=== PATIENT | female | born 1935 | race Two or more races ===

== ENCOUNTER 2020-12-04 10:22 | Outpatient (REF) | payer MEDICARE, MEDICAID, SELFPAY ==
[2020-12-04 11:42] LABS: MANUAL DIFF FLAG NO
[2020-12-04 11:51] LABS: Basophils Percent Auto 0.5 % (0-2); Eosinophils Absolute Auto 0.2 X10*3/uL (0.0-0.4); Eosinophils Percent Auto 2.7 % (0-4); Hematocrit 37.6 % (37-47); Hemoglobin 11.7 g/dl (12.0-16.0); Imm Gran Abs Auto 0.01 X10*3/uL (0.00-0.03); Imm Gran Pct Auto 0.2 % (0.0-0.4); Lymphocytes Absolute Auto 1.9 X10*3/uL (1.2-4.9); Lymphocytes Percent Auto 28.9 % (20-40); Mean Corpuscular HGB Conc 31.1 g/dl (31.0-35.0); Mean Corpuscular Volume 96.4 fL (80-98); Mean Platelet Volume 12.2 fL (9.4-12.3); Monocytes Absolute Auto 0.3 X10*3/uL (0.1-1.2); Neutrophils Absolute Auto 4.1 X10*3/uL (2.0-8.3); Neutrophils Percent Auto 62.7 % (45-73); Platelet Count 240 X10*3/uL (160-400); White Blood Count 6.6 X10*3/uL (4.8-10.8)
[2020-12-04 12:15] LABS: Alanine Aminotransferase 12 U/L (0-31); Albumin Level 3.7 g/dL (3.5-5.0); Alkaline Phosphatase 84 U/L (39-117); Anion Gap 15 (12-20); Aspartate Amino Transferase 12 U/L (5-31); Bilirubin Total 0.3 mg/dL (0.0-1.0); Blood Urea Nitrogen 22 mg/dL (9-16); Carbon Dioxide 20 mmol/L (22-29); Chloride 105 mmol/L (96-108); Estimated Glomerular Filt Rate 21; Iron 51 mcg/dL (30-160); Lactate Dehydrogenase 170 U/L (122-220); Percent Iron Saturation 23 % (15-50); Potassium 5.3 mmol/L (3.3-5.1); Sodium 135 mmol/L (135-145); Total Iron Binding Capacity 223 mcg/dL (228-428); Total Protein 7.2 g/dL (6.5-8.0); Unsaturated Iron Binding 172 ug/dL
[2020-12-04 12:56] LABS: Folate 11.2 ng/mL (> or = 4.0); Vitamin B12 621 pg/mL (200-900)
[2020-12-04 13:14] LABS: Glucose Fasting 405 mg/dL (60-99)
[2020-12-05 09:11] LABS: Erythropoietin (EPO) 8.4 mIU/mL (2.6-18.5)
[2020-12-05 12:22] LABS: Calcium (PTHI) 9.1 mg/dL (8.6-10.4); PTHI 190 pg/mL (14-64)
[2020-12-08 15:12] LABS: Vitamin D 25-OH, D2 <4 ng/mL; Vitamin D 25-OH, D3 18 ng/mL; Vitamin D 25-OH, Total 18 ng/mL (30-100)
== END 2020-12-04 10:23 | disposition home or self-care (01) ==
LOC: HO.LAB 10:22
PROVIDERS: Absent Provider Internal Medicine; PCP Internal Medicine; Visit Provider Internal Medicine Hypertension Specialist
DX: E11.22 Type 2 diabetes mellitus with diabetic chronic kidney disease (principal); N18.4 Chronic kidney disease, stage 4 (severe); D63.1 Anemia in chronic kidney disease; E11.65 Type 2 diabetes mellitus with hyperglycemia; E55.9 Vitamin D deficiency, unspecified; Z79.4 Long term (current) use of insulin
CPT/HCPCS: 36415; 80053; 82306; 82607; 82668; 82746; 83540; 83615; 83970; 85025

== ENCOUNTER 2021-01-31 16:01 | Outpatient (REF) | payer MEDICARE, MEDICAID, SELFPAY ==
[2021-01-31 17:26] LABS: Hemoglobin 11.2 g/dl (12.0-16.0); Mean Corpuscular Hemoglobin 30.7 pg (27.0-33.0); Mean Corpuscular Volume 95.9 fL (80-98); Mean Platelet Volume 12.5 fL (9.4-12.3); Platelet Count 278 X10*3/uL (160-400); Red Blood Count 3.65 X10*6/uL (4.20-5.50); Red Cell Distribution Width 12.8 % (11.0-16.0); White Blood Count 8.5 X10*3/uL (4.8-10.8)
[2021-01-31 17:27] LABS: MANUAL DIFF FLAG NO
[2021-01-31 17:31] LABS: Basophils Percent Auto 0.4 % (0-2); Eosinophils Absolute Auto 0.3 X10*3/uL (0.0-0.4); Eosinophils Percent Auto 3.4 % (0-4); Hematocrit 34.7 % (37-47); Hemoglobin 11.1 g/dl (12.0-16.0); Imm Gran Abs Auto 0.01 X10*3/uL (0.00-0.03); Imm Gran Pct Auto 0.1 % (0.0-0.4); Immature Retic Fraction 15.1 % (3.0-15.9); Lymphocytes Percent Auto 35.5 % (20-40); Mean Corpuscular Hemoglobin 30.7 pg (27.0-33.0); Mean Corpuscular Volume 95.9 fL (80-98); Mean Platelet Volume 12.4 fL (9.4-12.3); Monocytes Absolute Auto 0.4 X10*3/uL (0.1-1.2); Monocytes Percent Auto 4.6 % (2-11); Neutrophils Absolute Auto 4.7 X10*3/uL (2.0-8.3); Platelet Count 279 X10*3/uL (160-400); Red Blood Count 3.62 X10*6/uL (4.20-5.50); Red Cell Distribution Width 12.9 % (11.0-16.0); Retic HGB Equivalent 34.7 pg (30.0-35.0); Reticulocyte Percent 1.4 % (0.5-1.8); Reticulocytes Absolute 0.051 X10*6/uL (0.026-0.095); White Blood Count 8.3 X10*3/uL (4.8-10.8)
[2021-01-31 17:42] LABS: Microalbum/Creatinine Ratio Ur 4.6 ug/mg cr
[2021-01-31 18:20] LABS: Anion Gap 13 (12-20); Carbon Dioxide 24 mmol/L (22-29); Chloride 102 mmol/L (96-108); Potassium 5.5 mmol/L (3.3-5.1); Sodium 133 mmol/L (135-145)
[2021-01-31 18:44] LABS: Alanine Aminotransferase 11 U/L (0-31); Albumin Level 3.7 g/dL (3.5-5.0); Alkaline Phosphatase 86 U/L (39-117); Aspartate Amino Transferase 12 U/L (5-31); Bilirubin Total 0.2 mg/dL (0.0-1.0); Blood Urea Nitrogen 21 mg/dL (9-16); Calcium 9.4 mg/dL (8.4-10.2); Estimated Glomerular Filt Rate 20; Glucose Random 470 mg/dL (60-115); Iron 51 mcg/dL (30-160); Percent Iron Saturation 23 % (15-50); Total Iron Binding Capacity 221 mcg/dL (228-428); Total Protein 6.9 g/dL (6.5-8.0); Unsaturated Iron Binding 170 ug/dL
[2021-02-02 16:22] LABS: Calcium (PTHI) 9.7 mg/dL (8.6-10.4); PTHI 128 pg/mL (14-64)
== END 2021-01-31 16:02 | disposition home or self-care (01) ==
LOC: HO.LAB 16:01
PROVIDERS: PCP Internal Medicine; Visit Provider Internal Medicine Hypertension Specialist
DX: E11.22 Type 2 diabetes mellitus with diabetic chronic kidney disease (principal); N18.4 Chronic kidney disease, stage 4 (severe); D63.1 Anemia in chronic kidney disease; E11.65 Type 2 diabetes mellitus with hyperglycemia; Z79.4 Long term (current) use of insulin
CPT/HCPCS: 36415; 80053; 82043; 83540; 83970; 85025; 85027; 85045

== ENCOUNTER → 2021-03-21 14:51 | Outpatient (BNVA) | payer MEDICARE, MEDICAID, SELFPAY | PROVIDERS: PCP Internal Medicine; Visit Provider Internal Medicine | DX: E11.22 Type 2 diabetes mellitus with diabetic chronic kidney disease (principal); I12.9 Hypertensive chronic kidney disease with stage 1 through stage 4 chronic kidney disease, or unspecified chronic kidney disease; N18.4 Chronic kidney disease, stage 4 (severe); E78.5 Hyperlipidemia, unspecified; E04.9 Nontoxic goiter, unspecified; Z79.4 Long term (current) use of insulin | CPT/HCPCS: 82947; 99202 ==

== ENCOUNTER 2021-05-08 | Outpatient (REF) | payer MEDICARE, MEDICAID, SELFPAY | END 2021-05-08 00:01 | disposition home or self-care (01) | LOC: CF | PROVIDERS: Visit Provider Internal Medicine | DX: E04.9 Nontoxic goiter, unspecified (principal); E11.65 Type 2 diabetes mellitus with hyperglycemia; E11.22 Type 2 diabetes mellitus with diabetic chronic kidney disease; I12.9 Hypertensive chronic kidney disease with stage 1 through stage 4 chronic kidney disease, or unspecified chronic kidney disease; N18.4 Chronic kidney disease, stage 4 (severe); D63.1 Anemia in chronic kidney disease; E78.5 Hyperlipidemia, unspecified; M17.0 Bilateral primary osteoarthritis of knee; Z88.6 Allergy status to analgesic agent; Z88.8 Allergy status to other drugs, medicaments and biological substances; Z79.4 Long term (current) use of insulin; Z71.3 Dietary counseling and surveillance | CPT/HCPCS: 97802 ==

== ENCOUNTER → 2021-06-12 10:40 | Outpatient (BNVA) | payer MEDICARE, MEDICAID, SELFPAY | PROVIDERS: PCP Internal Medicine; Visit Provider Dietitian, Registered | DX: E11.65 Type 2 diabetes mellitus with hyperglycemia (principal); Z79.4 Long term (current) use of insulin | CPT/HCPCS: 97803 ==

== ENCOUNTER 2021-06-28 09:13 | Outpatient (REF) | payer MEDICARE, MEDICAID, SELFPAY ==
[2021-06-28 10:38] LABS: Estimated Average Glucose 143 mg/dL; Hemoglobin A1C 148.9794 umol/L; Hemoglobin A1c % 6.6 %
[2021-06-28 10:55] LABS: Alanine Aminotransferase 12 U/L (0-31); Albumin Level 3.8 g/dL (3.5-5.0); Alkaline Phosphatase 64 U/L (39-117); Anion Gap 13 (12-20); Aspartate Amino Transferase 17 U/L (5-31); Bilirubin Total 0.3 mg/dL (0.0-1.0); Blood Urea Nitrogen 25 mg/dL (9-16); Calcium 9.7 mg/dL (8.4-10.2); Carbon Dioxide 21 mmol/L (22-29); Chloride 110 mmol/L (96-108); Cholesterol 191 mg/dL; Estimated Glomerular Filt Rate 19; Glucose Random 107 mg/dL (60-115); HDL Cholesterol 48 mg/dL; LDL Cholesterol Calculated 122 mg/dl; Potassium 4.8 mmol/L (3.3-5.1); Sodium 139 mmol/L (135-145); Total Protein 7.3 g/dL (6.5-8.0); Triglycerides 105 mg/dL
[2021-06-29 10:31] LABS: LDL Cholesterol Direct 115 mg/dL (<100)
== END 2021-06-28 09:14 | disposition home or self-care (01) ==
LOC: HO.LAB 09:13
PROVIDERS: PCP Internal Medicine; Referring Provider Internal Medicine; Visit Provider Internal Medicine Nephrology
DX: E11.21 Type 2 diabetes mellitus with diabetic nephropathy (principal); N18.4 Chronic kidney disease, stage 4 (severe); D63.1 Anemia in chronic kidney disease
CPT/HCPCS: 36415; 80053; 80061; 83036; 83721

== ENCOUNTER 2021-10-29 11:48 | Outpatient (REF) | payer MEDICARE, MEDICAID, SELFPAY ==
[2021-10-29 12:19] LABS: MANUAL DIFF FLAG NO
[2021-10-29 12:48] LABS: Basophils Percent Auto 0.4 % (0-2); Eosinophils Absolute Auto 0.2 X10*3/uL (0.0-0.4); Eosinophils Percent Auto 2.7 % (0-4); Hematocrit 34.7 % (37.0-47.0); Hemoglobin 10.8 g/dl (12.0-16.0); Imm Gran Abs Auto 0.03 X10*3/uL (0.00-0.03); Imm Gran Pct Auto 0.4 % (0.0-0.4); Lymphocytes Absolute Auto 2.3 X10*3/uL (1.2-4.9); Mean Corpuscular HGB Conc 31.1 g/dl (31.0-35.0); Mean Corpuscular Hemoglobin 30.5 pg (27.0-33.0); Mean Platelet Volume 10.8 fL (9.4-12.3); Monocytes Absolute Auto 0.4 X10*3/uL (0.1-1.2); Monocytes Percent Auto 5.5 % (2-11); Neutrophils Absolute Auto 4.7 x10*3/uL (2.0-8.3); Platelet Count 321 X10*3/uL (160-400); Red Blood Count 3.54 X10*6/uL (4.20-5.50); Red Cell Distribution Width 13.6 % (11.0-16.0); White Blood Count 7.7 X10*3/uL (4.8-10.8)
[2021-10-29 13:08] LABS: Appearance Urine CLOUDY; Color Urine YELLOW; Glucose Urine UA NEG (NEG); Leukocyte Esterase Urine NEG (NEG); Nitrite Urine NEG (NEG); Urine Blood NEG (NEG); Urine Ketones NEG (NEG); Urine Protein 1+ MG/DL (NEG-TRACE)
[2021-10-29 13:16] LABS: Albumin Level 3.7 g/dL (3.5-5.0); Anion Gap 14 (12-20); Blood Urea Nitrogen 20 mg/dL (9-16); Calcium 9.3 mg/dL (8.4-10.2); Carbon Dioxide 21 mmol/L (22-29); Chloride 108 mmol/L (96-108); Estimated Glomerular Filt Rate 20; Phosphorus 2.6 mg/dL (2.7-4.5); Potassium 5.1 mmol/L (3.3-5.1); Sodium 138 mmol/L (135-145)
[2021-10-29 13:17] LABS: Creatinine Urine 177.21 mg/dL; Microalbum/Creatinine Ratio Ur 143.3 ug/mg cr; Protein/Creatinine Ratio, Ur 0.33 (<0.2); Total Protein Urine Random 59 mg/dL (<12)
[2021-10-29 13:38] LABS: Vitamin D 25-OH Total 21.8 ng/mL (>30)
[2021-10-29 13:45] LABS: WBC Urine 0-2 /HPF (0-4)
[2021-10-29 13:46] LABS: Bacteria Urine 2+ /LPF; Mucus Urine 2+ /LPF; RBC Urine 0 /HPF (0); Squamous Epithelial Cell Urine 3+ /LPF
[2021-10-30 17:46] LABS: Calcium (PTHI) 9.2 mg/dL (8.6-10.4); PTHI 244 pg/mL (14-64)
== END 2021-10-29 11:49 | disposition home or self-care (01) ==
LOC: HO.LAB 11:48
PROVIDERS: PCP Internal Medicine; Visit Provider Internal Medicine Nephrology
DX: E11.22 Type 2 diabetes mellitus with diabetic chronic kidney disease (principal); N18.4 Chronic kidney disease, stage 4 (severe); N25.0 Renal osteodystrophy
CPT/HCPCS: 36415; 80051; 81001; 81003; 82040; 82043; 82306; 82310; 82565; 83735; 83970; 84100; 84156; 84520; 85025; 87086

== ENCOUNTER → 2022-01-29 09:01 | Outpatient (BNVA) | payer MEDICARE, MEDICAID, SELFPAY | PROVIDERS: PCP Internal Medicine; Visit Provider Internal Medicine | DX: E11.65 Type 2 diabetes mellitus with hyperglycemia (principal); I10 Essential (primary) hypertension; E78.1 Pure hyperglyceridemia; Z79.4 Long term (current) use of insulin | CPT/HCPCS: Q3014 ==

== ENCOUNTER 2022-02-12 10:27 | Outpatient (REF) | payer MEDICARE, MEDICAID, SELFPAY ==
[2022-02-12 12:31] LABS: Free T4 (Free Thyroxine) 1.04 ng/dL (0.71-1.85)
[2022-02-12 12:32] LABS: Vitamin D 25-OH Total 24.1 ng/mL (>30)
[2022-02-12 13:17] LABS: Cholesterol 143 mg/dL; HDL Cholesterol 54 mg/dL; Iron 77 mcg/dL (30-160); LDL Cholesterol Calculated 75 mg/dl; Percent Iron Saturation 33 % (15-50); Total Iron Binding Capacity 232 mcg/dL (228-428); Triglycerides 74 mg/dL; Unsaturated Iron Binding 155 ug/dL
== END 2022-02-12 10:28 | disposition home or self-care (01) ==
LOC: HO.LAB 10:27
PROVIDERS: Absent Provider Internal Medicine; PCP Internal Medicine; Visit Provider Internal Medicine
DX: D64.9 Anemia, unspecified (principal); E78.5 Hyperlipidemia, unspecified; E55.9 Vitamin D deficiency, unspecified; E04.9 Nontoxic goiter, unspecified
CPT/HCPCS: 36415; 80061; 82306; 83540; 84439; 84443

== ENCOUNTER 2022-02-13 08:00 | Outpatient (REF) | payer MEDICARE, MEDICAID, SELFPAY ==
[2022-02-13 11:23] LABS: Creatinine Urine 80.94 mg/dL; Microalbum/Creatinine Ratio Ur 221.1 ug/mg cr
== END 2022-02-13 08:01 | disposition home or self-care (01) ==
LOC: HO.LNP 08:00
PROVIDERS: Visit Provider Internal Medicine
DX: E11.9 Type 2 diabetes mellitus without complications (principal)
CPT/HCPCS: 82043

== ENCOUNTER 2022-04-08 12:54 | Outpatient (REF) | payer MEDICARE, MEDICAID, SELFPAY ==
--- NOTE | ~2022-04-08 | MR_ITS ---
EXAMINATION: MRI OF THE BRAIN WITHOUT CONTRAST CLINICAL INFORMATION: Amnesia. COMPARISON: MRI scan of the brain 07/25/2018.. TECHNIQUE: MRI of the brain was obtained using routine sequences without contrast. FINDINGS: No diffusion abnormalities are identified to suggest an acute or subacute infarct. No mass effect or midline shift is seen. There is commensurate prominence of the ventricles and sulci consistent with diffuse volume loss. There are scattered areas of hyperintense T2 and FLAIR signal in the periventricular and subcortical white matter bilaterally, which have increased compared to prior imaging, consistent with progressive chronic microvascular ischemic disease. No extra-axial fluid collections are seen. The brainstem and cerebellum are normal. No pathologic magnetic susceptibility artifact is identified on the gradient refocused acquisition. The craniovertebral junction, marrow signal, and midline structures are normal. The major intracranial flow-voids at the level of the [place] are preserved. The dural venous sinus flow-voids are maintained. There have been bilateral lens extractions. The mastoid air cells are well-aerated. 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 MR/MR head/brain wo con IMPRESSION: 1. There are no acute bleeds or territorial infarcts. No masses are demonstrated. 2. There are progressive chronic microvascular ischemic changes and there is diffuse volume loss. 3. 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
== END 2022-04-08 12:55 | disposition home or self-care (01) ==
LOC: HO.MRI 12:54
PROVIDERS: Visit Provider Internal Medicine
DX: R41.3 Other amnesia (principal)
CPT/HCPCS: 70551

== ENCOUNTER 2022-05-15 08:25 | Outpatient (REF) | payer MEDICARE, MEDICAID, SELFPAY ==
--- NOTE | ~2022-05-15 | US_ITS ---
EXAMINATION: US THYROID CLINICAL INFORMATION: Nontoxic goiter, unspecified. COMPARISON: None TECHNIQUE: Linear transducer grayscale and color Doppler examination with attention to the region of the thyroid. FINDINGS: SIZE: Measurements of the thyroid lobes and nodules are given in sagittal, anteroposterior and transverse dimensions respectively. Right Thyroid Lobe: 5.3 x 3.2 x 1.9 cm, volume 16.7 mL. Parenchyma: The gland echotexture is heterogeneous. Thyroid vascularity is normal. Left Thyroid Lobe: 4.0 x 2.2 x 1.6 cm, volume 7.1 mL. Parenchyma: The gland echotexture is heterogeneous. Thyroid vascularity is normal. Isthmus: 0.5 cm in maximum AP dimension. Estimated total number of nodules greater than or equal to 1 cm: 1. [employer] nodules are described as follows: 1. Location: Right lower pole. Size: 1.9 x 1.6 x 2.3 cm, volume 3.7 mL. Nodule characteristics: Composition: Solid (2). Echogenicity: Isoechoic (1). Shape: Not taller than wide (0). Margins: Smooth (0). Echogenic Foci: None (0). ACR TI-RADS total points: 3 ACR TI-RADS category: 3 2. Location: Right upper pole. Size: 0.2 x 0.3 x 0.3 cm, volume 0.01 mL. Nodule characteristics: Composition: Solid (2). Echogenicity: Very hypoechoic (3). Shape: Not taller than wide (0). Margins: Smooth (0). Echogenic Foci: None (0). ACR TI-RADS total points: 5 ACR TI-RADS category: 4 3. Location: Right upper pole. Size: 0.5 x 0.5 x 0.6 cm, volume 0.03 mL. Nodule characteristics: Composition: Solid (2). Echogenicity: Very hypoechoic (3). Shape: Not taller than wide (0). Margins: Smooth (0). Echogenic Foci: None (0). ACR TI-RADS total points: 5 ACR TI-RADS category: 4 NODES: There are bilateral cervical lymph nodes. There is a left upper cervical 2.6 x 0.5 x 0.6 cm lymph node. This is elongated but normal in transverse dimension and demonstrates normal ultrasound morphology and flow. There is a right lower cervical lymph node. This is normal in size measuring 1.1 x 0.2 x 0.3 cm and demonstrates absent or slitlike hilum. US/US thyroid IMPRESSION: Heterogeneous thyroid gland. Enlarged right lobe. Bilateral thyroid nodules that by TI RADS criteria do not meet criteria for follow-up or fine-needle aspiration. Bilateral cervical lymph nodes. ACR TI-RADS RECOMMENDATION REFERENCE: Ultrasound-guided fine-needle aspiration, followup ultrasound, no further follow up. * TR1 (0 point) and TR 2 (2 points): No FNA or follow up. * TR3 (3 points): FNA if more than or equal to 2.5 cm in maximum dimension, followup ultrasound in 1, 3 and 5 years if 1.5 to 2.4 cm in maximum dimension. * TR4 (4-6 points): FNA if more than or equal to 1.5 cm in maximum dimension, followup ultrasound in 1, 2, 3 and 5 years if 1 to 1.4 cm in maximum dimension. * TR5 (more than or equal to 7 points): FNA if more than or equal to 1 cm in maximum dimension, followup ultrasound every year for 5 years if 0.5 to 0.9 cm in maximum dimension. * TR3, TR4 or TR5 nodules that are below the size threshold for followup receive no follow up.
--- NOTE | ~2022-05-15 | US_ITS ---
EXAMINATION: US ABDOMEN COMPLETE CLINICAL INFORMATION: Unspecified abdominal pain. COMPARISON: Renal ultrasound 02/10/2018. TECHNIQUE: Real-time imaging of the abdominal viscera. FINDINGS: PANCREAS: Normal. ABDOMINAL AORTA: Visualized aorta is normal in caliber however portions are obscured by bowel gas. INFERIOR VENA CAVA: Visualized portions are normal. LIVER: Normal. The liver is normal in size. The liver contour is normal. Parenchymal echogenicity is normal. No focal hepatic lesion. There is no intrahepatic biliary duct dilatation seen. GALLBLADDER: Surgically absent. COMMON BILE DUCT: Normal in caliber measuring 1.0 cm in diameter. RIGHT KIDNEY: Normal. No hydronephrosis. No renal calculi or focal parenchymal lesions. The kidney measures 10.6 cm in maximum dimension. LEFT KIDNEY: Absent. SPLEEN: Unremarkable. The spleen measures 7.5 cm in maximum dimension. FREE FLUID: None. US/US abdomen complete IMPRESSION: Absent left kidney. Status post cholecystectomy. Portions of the aorta were obscured by bowel gas limiting evaluation.
--- NOTE | 2022-05-15 09:21 | CA_ITS ---
Transthoracic Echocardiogram Patient (Last, First, Middle): Pepper Aly, Gender: Female Date of : 1935 Age: 86 Procedure Date: 05/15/2022 Procedure Type: Transthoracic Echocardiogram Location: OP Height: 154.94 cm Weight: 73.48 kg BSA: 1.73 m2 Heart Rate: 80 bpm BP: 130 / 78 mmHg Reading Recovery Teacher: SB Referring MD: Lamar Wick MD Symptoms: R01.1 - Cardiac murmur, unspecified Study Quality: Adequate ECG Rhythm: Sinus Conclusions: - The left ventricular systolic function is normal. The calculated ejection fraction is 62% by biplane method. - No obvious valvular pathology seen on this study. Findings Left Ventricle Normal left ventricular cavity size. There is normal left ventricular wall thickness. The left ventricular systolic function is normal. The calculated ejection fraction is 62% by biplane method. There is no evidence of regional wall motion abnormalities. Diastolic function is normal for age. Diminished peak LV GLS -12.8%. Right Ventricle Normal right ventricular cavity size and systolic function. Atria Both atria are normal in size. Aortic Valve There is a normal trileaflet aortic valve. There is no aortic valve stenosis. There is no aortic valve regurgitation. Mitral Valve The mitral valve appears normal. There is no mitral valve regurgitation. There is no mitral valve stenosis. Pulmonic Valve The pulmonic valve is likely normal. Tricuspid Valve Normal tricuspid valve structure. There is no tricuspid valve regurgitation. Tricuspid regurgitation envelope is inadequate for calculation of right ventricular systolic pressure. Great Vessels The aortic annulus, sinuses of valsalva, and asc aorta are normal in size. Venous The inferior vena cava is normal in size and collapses less than 50% with inspiration. Pericardium/Pleural There is no evidence of pericardial effusion. Prior Study Comparison No significant change compared to prior study dated: 06/15/2019. Recommendations, Care & Conclusions No obvious valvular pathology seen on this study. Measurements 2D Linear Measurements IVSd: 1.04 0.6-0.9/0.6-1.0 cm LVIDd: 3.88 3.9-5.3/4.2-5.9 cm LVIDd Index: 2.24 2.4-3.2/2.2-3.1 cm/m2 LVIDs: 2.44 2.0-3.6 cm LVPWd: 0.80 0.7-1.1 cm LA Diam: 3.30 2.7-3.8/3.0-4.0 cm LAIDs Index: 1.91 1.5-2.3 cm/m2 LV Mass: 133.68 67-162/88-224 g LV Mass Index: 77.27 43-95/49-115 g/m2 LVOT Diam: 2.10 3.0+(-)1.3 cm 2D Systolic Function EF 4C: 54.90 >55% EF 2C: 68.00 >55% EF BiP: 62.10 >55% Mitral Valve MV Pk E: 0.71 MV PK A: 0.95 MV Decel Time: 170.00 E/A: 0.70 E'Lateral: 6.96 E'Medial: 5.98 E/E' Med: 11.80 E/E' Lat: 10.20 PHT: 50.00 MVA PHT: 4.40 Decel [place]: 4.17 Aortic Valve AoV Pk Mateo: 1.15 AoV Mn Mateo: 0.93 AoV VTI: 0.29 AoV Pk Grad: 5.00 Aov Mn Grad: 4.00 DOMI Cont.VTI: 2.10 LVOT LVOT Pk Mateo: 0.75 LVOT Mn Mateo: 0.54 LVOT VTI: 0.18 LVOT Pk Grad: 2.00 LVOT Mn Grad: 1.00 LVOT Diam: 2.10 LVOT Area: 3.46 Diastolic Function MV Pk E: 0.71 MV Pk A: 0.95 E/A: 0.70 E'Medial: 5.98 E/E' Med: 11.80 E' Laterial: 6.96 E/E' Lat: 10.20 Right Ventricle TAPSE (mm): 13.80 TVS' Mateo: 11.00 Tricuspid Valve RA Press: 8.00 Great Vessels Aorta Sinus of Valsalva: 2.90 2.0-3.5 cm Ao Asc: 3.00 2.1-3.4 cm Pulmonary Veins Pulm Vein S/D 1.20 Pulmonary Valve PV Pk Mateo: 1.40 Peak PV Grad: 8.00 Updated in Other Vendor System with Status of Final Wale Coyne MD electronically signed on 05/16/2022 10:58:29 AM with status of Final
== END 2022-05-15 08:26 | disposition home or self-care (01) ==
LOC: HO.US 08:25
PROVIDERS: Visit Provider Internal Medicine
DX: E04.9 Nontoxic goiter, unspecified (principal); R10.9 Unspecified abdominal pain; R01.1 Cardiac murmur, unspecified
CPT/HCPCS: 76536; 76700; 93306; 93356

== ENCOUNTER → 2022-05-22 08:51 | Outpatient (BNVA) | payer MEDICARE, MEDICAID, SELFPAY | PROVIDERS: PCP Internal Medicine; Visit Provider Internal Medicine | DX: E04.9 Nontoxic goiter, unspecified (principal) | CPT/HCPCS: Q3014 ==

== ENCOUNTER → 2022-07-02 09:53 | Outpatient (BNVA) | payer MEDICARE, MEDICAID, SELFPAY | PROVIDERS: PCP Internal Medicine; Visit Provider Surgery | DX: R22.9 Localized swelling, mass and lump, unspecified (principal); E11.65 Type 2 diabetes mellitus with hyperglycemia; I10 Essential (primary) hypertension; E78.1 Pure hyperglyceridemia; Z79.4 Long term (current) use of insulin | CPT/HCPCS: 99202 ==

== ENCOUNTER 2022-07-23 14:26 | Outpatient (REF) | payer MEDICARE, MEDICAID, SELFPAY ==
[2022-07-23 14:50] LABS: MANUAL DIFF FLAG NO
[2022-07-23 15:07] LABS: Basophils Absolute Auto 0.1 X10*3/uL (0.0-0.2); Basophils Percent Auto 0.6 % (0-2); Eosinophils Absolute Auto 0.3 X10*3/uL (0.0-0.4); Eosinophils Percent Auto 3.6 % (0-4); Hematocrit 34.7 % (37.0-47.0); Hemoglobin 11.1 g/dl (12.0-16.0); Imm Gran Abs Auto 0.02 X10*3/uL (0.00-0.03); Imm Gran Pct Auto 0.2 % (0.0-0.4); Lymphocytes Absolute Auto 2.7 X10*3/uL (1.2-4.9); Lymphocytes Percent Auto 33.5 % (20-40); Mean Corpuscular Hemoglobin 30.9 pg (27.0-33.0); Mean Corpuscular Volume 96.7 fL (80.0-98.0); Mean Platelet Volume 10.9 fL (9.4-12.3); Monocytes Absolute Auto 0.4 X10*3/uL (0.1-1.2); Monocytes Percent Auto 5.3 % (2-11); Neutrophils Absolute Auto 4.6 x10*3/uL (2.0-8.3); Neutrophils Percent Auto 56.8 % (45-73); Platelet Count 283 X10*3/uL (160-400); Red Blood Count 3.59 X10*6/uL (4.20-5.50); Red Cell Distribution Width 13.2 % (11.0-16.0); White Blood Count 8.1 X10*3/uL (4.8-10.8)
[2022-07-23 15:18] LABS: Appearance Urine Clear; Color Urine Yellow; Glucose Urine UA Negative (Negative); Leukocyte Esterase Urine Negative (Negative); Nitrite Urine Negative (Negative); PH 5.5 (5.0-9.0); Specific Gravity - Urine 1.015 (1.005-1.025); UMIC TRIGGER UA YES; Urine Blood Negative (Negative); Urine Ketones Negative (Negative); Urine Protein 100 (2+) mg/dL (Neg-Trace)
[2022-07-23 15:23] LABS: Bacteria Urine Trace (None Seen); Hyaline Casts Urine 0-2 /LPF (0-2); RBC Urine 0-2 /HPF (0-2); WBC Urine 0-5 /HPF (0-5)
[2022-07-23 15:42] LABS: Microalbum/Creatinine Ratio Ur 251.1 ug/mg cr; Protein/Creatinine Ratio, Ur 0.52 (<0.2); Total Protein Urine Random 56 mg/dL (<12)
[2022-07-23 15:57] LABS: Albumin Level 3.7 g/dL (3.5-5.0); Anion Gap 13 (12-20); Blood Urea Nitrogen 23 mg/dL (9-16); Carbon Dioxide 24 mmol/L (22-29); Chloride 109 mmol/L (96-108); Estimated Glomerular Filt Rate 22; Magnesium 1.7 mg/dL (1.6-2.6); Sodium 141 mmol/L (135-145); Vitamin D 25-OH Total 31.6 ng/mL (>30)
[2022-07-24 12:23] LABS: Calcium (PTHI) 10.2 mg/dL (8.6-10.4); PTHI 115 pg/mL (16-77)
== END 2022-07-23 14:27 | disposition home or self-care (01) ==
LOC: HO.LAB 14:26
PROVIDERS: PCP Internal Medicine; Visit Provider Internal Medicine Nephrology
DX: E11.22 Type 2 diabetes mellitus with diabetic chronic kidney disease (principal); E11.29 Type 2 diabetes mellitus with other diabetic kidney complication; N25.0 Renal osteodystrophy; N18.4 Chronic kidney disease, stage 4 (severe); D63.1 Anemia in chronic kidney disease
CPT/HCPCS: 36415; 80051; 81001; 82040; 82043; 82306; 82310; 82565; 83735; 83970; 84100; 84156; 84520; 85025

== ENCOUNTER 2022-07-26 11:46 | Outpatient (REF) | payer MEDICARE, MEDICAID, SELFPAY ==
[2022-07-26 11:59] VITALS: BP 186/72; PULSE 82; RESP 16; TEMP 36.2; O2SAT 98; BMI 31.5
[2022-07-26 12:21] VITALS: BP 171/77; PULSE 79; RESP 16; O2SAT 98
--- NOTE | 2022-07-26 12:34 | P.OP_ITS ---
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 She has tried to avoid removal, and we discussed via certified ophthalmic medical technician in the office excision with sutures verses shave excision with the inherent risks of bleeding, infection, scar formation and the pros and cons of each. Given the patient's limited mobility, they preferred the shave excision with electrocautery and I explained there would be an open ulcer with around scar that would take 1-2 weeks to heal. They preferred this approach to having sutures given her mobility issues. The risks of infection were also reviewed and apparently understood the patient seemed understand her options and wanted to proceed.] Procedure: [Patient was identified in the minor procedure room and placed seated. After an appropriate time-out, her back was prepped with Betadine that was allowed to dry. Local was infiltrated into the base of the 18 x 20 mm pedunculated lesion and electrocautery on a setting of 30 w used to excise the intradermal cystic lesion from the skin. Hemostasis was good. Bacitracin and a Band-Aid was applied and the specimen sent for permanent section. Instructions regarding daily bacitracin twice a day with or without Band-Aid was discussed with the patient's daughter. But the patient and her daughter's questions were her apparently satisfactorily answered. Follow-up will be p.r.n.]
== END 2022-07-26 11:47 | disposition home or self-care (01) ==
LOC: HO.MS 11:46
PROVIDERS: PCP Internal Medicine; Visit Provider Surgery
PROC: (CPT 11302; principal; 2022-07-26 12:00)
DX: D36.12 Benign neoplasm of peripheral nerves and autonomic nervous system, upper limb, including shoulder (principal); E11.9 Type 2 diabetes mellitus without complications
CPT/HCPCS: 11302; 88305; 88341; 88342

== ENCOUNTER 2022-12-16 11:54 | Emergency (ER) | payer MEDICARE, MEDICAID, SELFPAY ==
[2022-12-16 12:44] VITALS: BP 189/81; PULSE 71; RESP 18; TEMP 36.2; O2SAT 99; BMI 31.4
--- NOTE | 2022-12-16 12:44 | ED.GENADULT ---
HPI - General Adult General Chief complaint: General Medical <NESSA Christie - Last Filed: 12/16/22 12:48> Stated complaint: High Blood Sugar <NESSA Christie - Last Filed: 12/16/22 12:48> Time Seen by Provider: 12/16/22 15:39 <NESSA Christie - Last Filed: 12/16/22 12:48> Source: patient, family (Granddaughter) and home care provider (Family) <Stephanie Juan MD - Last Filed: 12/16/22 21:55> Mode of arrival: ambulatory <Stephanie Juan MD - Last Filed: 12/16/22 21:55> History of Present Illness HPI narrative: 87-year-old female is a known diabetic, variable control with her diabetes especially since September has recently returned from visiting with a relative and the granddaughter who is at bedside states that she received a call from the patient's stating that her sugar was reading high. Patient herself denies any dizziness, headaches, shortness of breath, chest pain/palpitations and denies any GI or symptoms other than urinary frequency. She is currently following up with the seafood technology specialist and is borderline needing to be started on dialysis according to the granddaughter who is at bedside. <Stephanie Juan MD - Last Filed: 12/16/22 21:55> Related Data Home medications: Home Medications Medication Instructions Recorded Confirmed blood sugar diagnostic (FreeStyle 03/21/21 08/22/22 Lite Strips) lancets 28 gauge (FreeStyle 03/21/21 08/22/22 Lancets) Previous Rx's Medication Instructions Recorded blood-glucose meter (FreeStyle #1 ea 05/09/21 [place] Lite kit) blood sugar diagnostic (OneTouch #50 ea 07/05/21 Ultra Test strips) blood-glucose meter (OneTouch #1 ea 07/05/21 Ultra2 Meter kit) lancets (OneTouch UltraSoft #100 ea 07/05/21 Lancets) semaglutide 1 mg/dose (4 mg/3 mL) 1 mg (0.75 mL) subcut QWEEK 30 01/29/22 subcutaneous pen injector (Ozempic) days #3.75 mL radha #1 ea 03/26/22 omeprazole 20 mg capsule,delayed 20 mg PO QAM 90 days #90 caps 04/21/22 release pen needle, diabetic 32 gauge x #50 ea 07/17/22 1 (Novofine 32) Tresiba FlexTouch U-100 100 10 unit (0.1 mL) subcut DAILY 30 07/24/22 unit/mL (3 mL) subcutaneous pen days #15 mL (insulin degludec) simvastatin 40 mg tablet 40 mg PO BEDTIME 90 days #90 tabs 08/01/22 wheelchair #1 ea 08/22/22 cholecalciferol (vitamin D3) 25 25 mcg PO DAILY 90 days #90 caps 09/13/22 mcg (1,000 unit) capsule olmesartan 5 mg tablet 5 mg PO BID 90 days #180 tabs 10/30/22 <NESSA Christie - Last Filed: 12/16/22 12:48> Allergies/adverse reactions: Allergies Allergy/AdvReac Type Severity Reaction Status Date / Time aspirin Allergy Intermediate unknown Verified 12/16/22 12:48 Penicillins Allergy Unknown Verified 12/16/22 12:48 metformin AdvReac Intermediate diarrhea Verified 12/16/22 12:48 <NESSA Christie - Last Filed: 12/16/22 12:48> Review of Systems Review of Systems: Pertinent positives and negatives as stated in HPI <Stephanie Juan MD - Last Filed: 12/16/22 21:55> PMFSH Past Medical History Source: nursing notes reviewed <Stephanie Juan MD - Last Filed: 12/16/22 21:55> Medical History: Medical History Anemia in chronic kidney disease CKD (chronic kidney disease) stage 4, GFR 15-29 ml/min Diabetes mellitus Essential hypertension Goiter HLD (hyperlipidemia) HTN (hypertension) Primary osteoarthritis of knees, bilateral T2DM (type 2 diabetes mellitus) <NESSA Christie - Last Filed: 12/16/22 12:48> Surgical History: Surgical History History of appendectomy History of cholecystectomy History of knee replacement procedure of right knee History of total hysterectomy History of total knee arthroplasty (~12/22/18) Hx of eye surgery <NESSA Christie - Last Filed: 12/16/22 12:48> Family History Family History: Family History Father No problems noted. Mother No problems noted. <NESSA Christie - Last Filed: 12/16/22 12:48> Social History Social History: Social History Household Members: Children Housing: Apartment Alcohol intake: never Patient Tobacco Use Status: Never used Tobacco Smoked in Last 30 Days: No e-Cigarette/Vaping Use: Never Used Second Hand Smoke Exposure: No Use of substances other than those prescribed or required for medical reasons: No Advance Directives: Yes Advance Directives on File: Yes Advance Directives Date on File: 12/16/22 service: No Current occupational status: disabled Cognitive needs: No Hearing needs: No Vision needs: No <NESSA Christie - Last Filed: 12/16/22 12:48> Physical Exam ED Vital Signs: Vital Signs - 24 hr 12/16/22 12:44 12/16/22 15:21 12/16/22 20:00 Temperature 97.1 F 97.6 F 98.3 F Pulse Rate 71 70 78 Respiratory Rate 18 14 16 Blood Pressure 189/81 H 166/68 H 166/73 H Pulse Oximetry 99 100 98 Oxygen Delivery Method Room Air Room Air Room Air 12/16/22 22:00 12/17/22 00:00 Temperature 98.1 F 98.1 F Pulse Rate 75 76 Respiratory Rate 16 16 Blood Pressure 171/83 H 154/79 H Pulse Oximetry 98 Oxygen Delivery Method Room Air BMI result Body Mass Index 31.4 <NESSA Christie - Last Filed: 12/16/22 12:48> Vital Signs - 24 hr 12/16/22 12:44 12/16/22 15:21 12/16/22 20:00 Temperature 97.1 F 97.6 F 98.3 F Pulse Rate 71 70 78 Respiratory Rate 18 14 16 Blood Pressure 189/81 H 166/68 H 166/73 H Pulse Oximetry 99 100 98 Oxygen Delivery Method Room Air Room Air Room Air 12/16/22 22:00 12/17/22 00:00 Temperature 98.1 F 98.1 F Pulse Rate 75 76 Respiratory Rate 16 16 Blood Pressure 171/83 H 154/79 H Pulse Oximetry 98 Oxygen Delivery Method Room Air BMI result Body Mass Index 31.4 VITAL SIGNS: Reviewed. GENERAL: Well developed, well nourished, in no acute distress. HEAD: Normocephalic/atraumatic EYES: PERRLA, EOMI EARS: Ext canals without abnormality NOSE: Nares patent bilateral OROPHARYNX: no oral lesions noted, posterior pharynx clear NECK: Supple, no adenopathy LUNGS: Normal breath sounds. No adventitious sounds or accessory muscle use. SpO2<100> CARDIOVASCULAR: Regular rate and rhythm without noted murmurs, no JVD or lower extremity edema. ABDOMEN: Soft, non-tender, non-distended with bowel sounds. MUSCULOSKELETAL: No tenderness, deformities, or effusions noted on gross inspection. EXTREMITIES: No cyanosis, clubbing or edema. SKIN: Inspection of the skin reveals no rashes NEUROLOGIC: Alert and oriented x 3. Strength and sensation to light touch were grossly intact x 4. <Stephanie Juan MD - Last Filed: 12/16/22 21:55> Vital Signs - 24 hr 12/16/22 12:44 12/16/22 15:21 12/16/22 20:00 Temperature 97.1 F 97.6 F 98.3 F Pulse Rate 71 70 78 Respiratory Rate 18 14 16 Blood Pressure 189/81 H 166/68 H 166/73 H Pulse Oximetry 99 100 98 Oxygen Delivery Method Room Air Room Air Room Air 12/16/22 22:00 12/17/22 00:00 Temperature 98.1 F 98.1 F Pulse Rate 75 76 Respiratory Rate 16 16 Blood Pressure 171/83 H 154/79 H Pulse Oximetry 98 Oxygen Delivery Method Room Air BMI result Body Mass Index 31.4 <NESSA Lentz - Last Filed: 12/17/22 01:34> Course Course Course Narrative: RME: 87yo F w/PMHx HTN, DM, CKD, HLD, c/o fluctuating glucose at home and meter wouldn't read this AM. Reports generalized fatigue. Denies missing any does of her meds, did not take today yet (takes at night) Denies abd pain, N/V/D, CP/SOB Tresiba EKG, Labs, UA ordered Full HPI, ROS and PE to be performed by primary ED provider. <NESSA Christie - Last Filed: 12/16/22 12:48> Reevaluation(s) Reevaluation #1: Repeat BNP with decreased potassium 4.6 will have her follow-up with Nephrology. Tolerating p.o.. Appears well, hemodynamically stable. Educated patient on diagnosis and treatment plan, answered all question, patient verbalizes understanding. At this time patient will be discharged home, advised to return with new or worsening symptoms. Educated on worrisome signs and symptoms and when to return. At this time I feel comfortable discharge home. <NESSA Lentz - Last Filed: 12/17/22 01:34> Time: 01:32 <NESSA Lentz - Last Filed: 12/17/22 01:34> Medications Administered Discontinued Medications Generic Name Dose Route Start Last Admin Trade Name Freq PRN Reason Stop Dose Admin Sodium Chloride 500 mls @ 999 mls/hr 12/16/22 18:00 12/16/22 21:00 Ns IV 12/16/22 18:30 Infused .Q31M SALLIE Infusion Insulin Human Lispro 7 unit 12/16/22 21:47 12/16/22 22:15 Insulin Lispro 100 Unit/Ml 3 Ml Vial SUBCUT 12/16/22 21:48 7 unit ONCE ONE Administration Sodium Zirconium Cyclosilicate 10 gm 12/16/22 21:47 12/16/22 22:14 Sodium Zirconium Cyclosilicate 10 Gm Powd.Pack PO 12/16/22 21:48 10 gm ONCE ONE Administration <NESSA Christie - Last Filed: 12/16/22 12:48> Medications Administered Discontinued Medications Generic Name Dose Route Start Last Admin Trade Name Freq PRN Reason Stop Dose Admin Sodium Chloride 500 mls @ 999 mls/hr 12/16/22 18:00 12/16/22 21:00 Ns IV 12/16/22 18:30 Infused .Q31M SALLIE Infusion Insulin Human Lispro 7 unit 12/16/22 21:47 12/16/22 22:15 Insulin Lispro 100 Unit/Ml 3 Ml Vial SUBCUT 12/16/22 21:48 7 unit ONCE ONE Administration Sodium Zirconium Cyclosilicate 10 gm 12/16/22 21:47 12/16/22 22:14 Sodium Zirconium Cyclosilicate 10 Gm Powd.Pack PO 12/16/22 21:48 10 gm ONCE ONE Administration <Stephanie Juan MD - Last Filed: 12/16/22 21:55> Medications Administered Discontinued Medications Generic Name Dose Route Start Last Admin Trade Name Marisol PRN Reason Stop Dose Admin Sodium Chloride 500 mls @ 999 mls/hr 12/16/22 18:00 12/16/22 21:00 Ns IV 12/16/22 18:30 Infused .Q31M SALLIE Infusion Insulin Human Lispro 7 unit 12/16/22 21:47 12/16/22 22:15 Insulin Lispro 100 Unit/Ml 3 Ml Vial SUBCUT 12/16/22 21:48 7 unit ONCE ONE Administration Sodium Zirconium Cyclosilicate 10 gm 12/16/22 21:47 12/16/22 22:14 Sodium Zirconium Cyclosilicate 10 Gm Powd.Pack PO 12/16/22 21:48 10 gm ONCE ONE Administration <NESSA Lentz - Last Filed: 12/17/22 01:34> Medical Decision Making Medical Decision Making MDM Narrative: 87-year-old female with history and clinical presentation consistent with poor glucose control likely secondary to dietary choices. Patient is med compliant and on rechecking glucose levels appears to be in the 200+ range, no evidence of acetone and otherwise she is comfortable and hemodynamically stable. Reviewed all investigations and my interpretation is that patient has had improvement of her creatinine after receiving 500 cc of IV fluids but potassium remains elevated without symptoms or EKG changes. 2145: I discussed case with seafood technology specialist, Dr. Macias, recommend 7 units subcutaneous insulin with 10 g of Lokelma. I discussed this plan with the family at bedside and they understand. Signed out to NESSA Cunningham to rpt BMP <Stephanie Juan MD - Last Filed: 12/16/22 21:55> Differential Diagnosis Please see the discussion above <Stephanie Juan MD - Last Filed: 12/16/22 21:55> Lab Data Please see the discussion above <Stephanie Juan MD - Last Filed: 12/16/22 21:55> Result Diagrams: 12/16/22 13:27 12/16/22 13:27 <NESSA Christie - Last Filed: 04/24/23 12:48> Labs: Lab Results 12/16/22 12/16/22 12/16/22 Range/Units 13:27 13:27 16:23 WBC 7.2 (4.8-10.8) X10*3/uL RBC 3.76 L (4.20-5.50) X10*6/uL Hgb 11.7 L (12.0-16.0) g/dl Hct 36.0 L (37.0-47.0) % MCV 95.7 (80.0-98.0) fL MCH 31.1 (27.0-33.0) pg MCHC 32.5 (31.0-35.0) g/dl RDW 12.6 (11.0-16.0) % Plt Count 253 (160-400) X10*3/uL MPV 11.9 (9.4-12.3) fL Immature Gran % (Auto) 0.3 (0.0-0.4) % Neut % (Auto) 57.0 (45-73) % Lymph % (Auto) 31.8 (20-40) % [place] % (Auto) 6.3 (2-11) % Eos % (Auto) 4.0 (0-4) % Baso % (Auto) 0.6 (0-2) % Lymph # (Auto) 2.3 (1.2-4.9) X10*3/uL [place] # (Auto) 0.5 (0.1-1.2) X10*3/uL Eos # (Auto) 0.3 (0.0-0.4) X10*3/uL Baso # (Auto) 0.0 (0.0-0.2) X10*3/uL Abs Immat Gran (auto) 0.02 (0.00-0.03) X10*3/uL Absolute Neuts (auto) 4.1 (2.0-8.3) x10*3/uL Absolute Nucleated RBC 0.000 (0.0-0.012) X10*3/uL Nucleated RBC % (auto) 0.0 (0.0-0.2) /100WBC Sodium 140 (135-145) mmol/L Potassium 5.7 H (3.3-5.1) mmol/L Chloride 111 H (96-108) mmol/L Carbon Dioxide 22 (22-29) mmol/L Anion Gap 13 (12-20) BUN 31 H (9-16) mg/dL Creatinine 2.62 H (0.5-1.4) mg/dL Estim Creat Clear Calc 14.3 Estimated GFR 17 POC Glucose (60-115) mg/dL Random Glucose 241 H (60-115) mg/dL Calcium 9.3 D (8.4-10.2) mg/dL Magnesium 2.0 (1.6-2.6) mg/dL Total Bilirubin 0.4 (0.0-1.0) mg/dL Direct Bilirubin 0.1 (0.0-0.5) mg/dL AST 14 (5-31) U/L ALT 14 (0-31) U/L Alkaline Phosphatase 74 (39-117) U/L Total Protein 6.9 (6.5-8.0) g/dL Albumin 3.7 (3.5-5.0) g/dL Urine Color Yellow Urine Appearance Clear Urine pH 5.5 (5.0-9.0) Ur Specific [place] 1.010 (1.005-1.025) Urine Protein 30 (1+) H (Neg-Trace) mg/dL Urine Glucose (UA) 100 H (Negative) mg/dL Urine Ketones Negative (Negative) mg/dL Urine Blood Negative (Negative) Urine Nitrite Negative (Negative) Ur Leukocyte Esterase Negative (Negative) Urine RBC 0-2 (0-2) /HPF Urine WBC 0-5 (0-5) /HPF Ur Squamous Epith Cells 0-2 (0-2) /HPF Urine Bacteria None Seen (None Seen) Hyaline Casts 0-2 (0-2) /LPF Acetone, Qual Negative (Negative) 12/16/22 12/16/22 12/16/22 Range/Units 16:28 20:41 23:17 WBC (4.8-10.8) X10*3/uL RBC (4.20-5.50) X10*6/uL Hgb (12.0-16.0) g/dl Hct (37.0-47.0) % MCV (80.0-98.0) fL MCH (27.0-33.0) pg MCHC (31.0-35.0) g/dl RDW (11.0-16.0) % Plt Count (160-400) X10*3/uL MPV (9.4-12.3) fL Immature Gran % (Auto) (0.0-0.4) % Neut % (Auto) (45-73) % Lymph % (Auto) (20-40) % [place] % (Auto) (2-11) % Eos % (Auto) (0-4) % Baso % (Auto) (0-2) % Lymph # (Auto) (1.2-4.9) X10*3/uL [place] # (Auto) (0.1-1.2) X10*3/uL Eos # (Auto) (0.0-0.4) X10*3/uL Baso # (Auto) (0.0-0.2) X10*3/uL Abs Immat Gran (auto) (0.00-0.03) X10*3/uL Absolute Neuts (auto) (2.0-8.3) x10*3/uL Absolute Nucleated RBC (0.0-0.012) X10*3/uL Nucleated RBC % (auto) (0.0-0.2) /100WBC Sodium 141 (135-145) mmol/L Potassium 5.8 H (3.3-5.1) mmol/L Chloride 114 H (96-108) mmol/L Carbon Dioxide 21 L (22-29) mmol/L Anion Gap 12 (12-20) BUN 27 H (9-16) mg/dL Creatinine 2.37 H (0.5-1.4) mg/dL Estim Creat Clear Calc 15.8 Estimated GFR 19 POC Glucose 216 H 168 H (60-115) mg/dL Random Glucose 271 H (60-115) mg/dL Calcium 9.2 (8.4-10.2) mg/dL Magnesium (1.6-2.6) mg/dL Total Bilirubin (0.0-1.0) mg/dL Direct Bilirubin (0.0-0.5) mg/dL AST (5-31) U/L ALT (0-31) U/L Alkaline Phosphatase (39-117) U/L Total Protein (6.5-8.0) g/dL Albumin (3.5-5.0) g/dL Urine Color Urine Appearance Urine pH (5.0-9.0) Ur Specific [place] (1.005-1.025) Urine Protein (Neg-Trace) mg/dL Urine Glucose (UA) (Negative) mg/dL Urine Ketones (Negative) mg/dL Urine Blood (Negative) Urine Nitrite (Negative) Ur Leukocyte Esterase (Negative) Urine RBC (0-2) /HPF Urine WBC (0-5) /HPF Ur Squamous Epith Cells (0-2) /HPF Urine Bacteria (None Seen) Hyaline Casts (0-2) /LPF Acetone, Qual (Negative) 12/17/22 Range/Units 01:02 WBC (4.8-10.8) X10*3/uL RBC (4.20-5.50) X10*6/uL Hgb (12.0-16.0) g/dl Hct (37.0-47.0) % MCV (80.0-98.0) fL MCH (27.0-33.0) pg MCHC (31.0-35.0) g/dl RDW (11.0-16.0) % Plt Count (160-400) X10*3/uL MPV (9.4-12.3) fL Immature Gran % (Auto) (0.0-0.4) % Neut % (Auto) (45-73) % Lymph % (Auto) (20-40) % [place] % (Auto) (2-11) % Eos % (Auto) (0-4) % Baso % (Auto) (0-2) % Lymph # (Auto) (1.2-4.9) X10*3/uL [place] # (Auto) (0.1-1.2) X10*3/uL Eos # (Auto) (0.0-0.4) X10*3/uL Baso # (Auto) (0.0-0.2) X10*3/uL Abs Immat Gran (auto) (0.00-0.03) X10*3/uL Absolute Neuts (auto) (2.0-8.3) x10*3/uL Absolute Nucleated RBC (0.0-0.012) X10*3/uL Nucleated RBC % (auto) (0.0-0.2) /100WBC Sodium 145 (135-145) mmol/L Potassium 4.6 D (3.3-5.1) mmol/L Chloride 113 H (96-108) mmol/L Carbon Dioxide 24 (22-29) mmol/L Anion Gap 13 (12-20) BUN 27 H (9-16) mg/dL Creatinine 2.20 H (0.5-1.4) mg/dL Estim Creat Clear Calc 17.0 Estimated GFR 21 POC Glucose (60-115) mg/dL Random Glucose 211 H (60-115) mg/dL Calcium 9.1 (8.4-10.2) mg/dL Magnesium (1.6-2.6) mg/dL Total Bilirubin (0.0-1.0) mg/dL Direct Bilirubin (0.0-0.5) mg/dL AST (5-31) U/L ALT (0-31) U/L Alkaline Phosphatase (39-117) U/L Total Protein (6.5-8.0) g/dL Albumin (3.5-5.0) g/dL Urine Color Urine Appearance Urine pH (5.0-9.0) Ur Specific [place] (1.005-1.025) Urine Protein (Neg-Trace) mg/dL Urine Glucose (UA) (Negative) mg/dL Urine Ketones (Negative) mg/dL Urine Blood (Negative) Urine Nitrite (Negative) Ur Leukocyte Esterase (Negative) Urine RBC (0-2) /HPF Urine WBC (0-5) /HPF Ur Squamous Epith Cells (0-2) /HPF Urine Bacteria (None Seen) Hyaline Casts (0-2) /LPF Acetone, Qual (Negative) <NESSA Christie - Last Filed: 12/16/22 12:48> Lab Results 12/16/22 12/16/22 12/16/22 Range/Units 13:27 13:27 16:23 WBC 7.2 (4.8-10.8) X10*3/uL RBC 3.76 L (4.20-5.50) X10*6/uL Hgb 11.7 L (12.0-16.0) g/dl Hct 36.0 L (37.0-47.0) % MCV 95.7 (80.0-98.0) fL MCH 31.1 (27.0-33.0) pg MCHC 32.5 (31.0-35.0) g/dl RDW 12.6 (11.0-16.0) % Plt Count 253 (160-400) X10*3/uL MPV 11.9 (9.4-12.3) fL Immature Gran % (Auto) 0.3 (0.0-0.4) % Neut % (Auto) 57.0 (45-73) % Lymph % (Auto) 31.8 (20-40) % [place] % (Auto) 6.3 (2-11) % Eos % (Auto) 4.0 (0-4) % Baso % (Auto) 0.6 (0-2) % Lymph # (Auto) 2.3 (1.2-4.9) X10*3/uL [place] # (Auto) 0.5 (0.1-1.2) X10*3/uL Eos # (Auto) 0.3 (0.0-0.4) X10*3/uL Baso # (Auto) 0.0 (0.0-0.2) X10*3/uL Abs Immat Gran (auto) 0.02 (0.00-0.03) X10*3/uL Absolute Neuts (auto) 4.1 (2.0-8.3) x10*3/uL Absolute Nucleated RBC 0.000 (0.0-0.012) X10*3/uL Nucleated RBC % (auto) 0.0 (0.0-0.2) /100WBC Sodium 140 (135-145) mmol/L Potassium 5.7 H (3.3-5.1) mmol/L Chloride 111 H (96-108) mmol/L Carbon Dioxide 22 (22-29) mmol/L Anion Gap 13 (12-20) BUN 31 H (9-16) mg/dL Creatinine 2.62 H (0.5-1.4) mg/dL Estim Creat Clear Calc 14.3 Estimated GFR 17 POC Glucose (60-115) mg/dL Random Glucose 241 H (60-115) mg/dL Calcium 9.3 D (8.4-10.2) mg/dL Magnesium 2.0 (1.6-2.6) mg/dL Total Bilirubin 0.4 (0.0-1.0) mg/dL Direct Bilirubin 0.1 (0.0-0.5) mg/dL AST 14 (5-31) U/L ALT 14 (0-31) U/L Alkaline Phosphatase 74 (39-117) U/L Total Protein 6.9 (6.5-8.0) g/dL Albumin 3.7 (3.5-5.0) g/dL Urine Color Yellow Urine Appearance Clear Urine pH 5.5 (5.0-9.0) Ur Specific [place] 1.010 (1.005-1.025) Urine Protein 30 (1+) H (Neg-Trace) mg/dL Urine Glucose (UA) 100 H (Negative) mg/dL Urine Ketones Negative (Negative) mg/dL Urine Blood Negative (Negative) Urine Nitrite Negative (Negative) Ur Leukocyte Esterase Negative (Negative) Urine RBC 0-2 (0-2) /HPF Urine WBC 0-5 (0-5) /HPF Ur Squamous Epith Cells 0-2 (0-2) /HPF Urine Bacteria None Seen (None Seen) Hyaline Casts 0-2 (0-2) /LPF Acetone, Qual Negative (Negative) 12/16/22 12/16/22 12/16/22 Range/Units 16:28 20:41 23:17 WBC (4.8-10.8) X10*3/uL RBC (4.20-5.50) X10*6/uL Hgb (12.0-16.0) g/dl Hct (37.0-47.0) % MCV (80.0-98.0) fL MCH (27.0-33.0) pg MCHC (31.0-35.0) g/dl RDW (11.0-16.0) % Plt Count (160-400) X10*3/uL MPV (9.4-12.3) fL Immature Gran % (Auto) (0.0-0.4) % Neut % (Auto) (45-73) % Lymph % (Auto) (20-40) % [place] % (Auto) (2-11) % Eos % (Auto) (0-4) % Baso % (Auto) (0-2) % Lymph # (Auto) (1.2-4.9) X10*3/uL [place] # (Auto) (0.1-1.2) X10*3/uL Eos # (Auto) (0.0-0.4) X10*3/uL Baso # (Auto) (0.0-0.2) X10*3/uL Abs Immat Gran (auto) (0.00-0.03) X10*3/uL Absolute Neuts (auto) (2.0-8.3) x10*3/uL Absolute Nucleated RBC (0.0-0.012) X10*3/uL Nucleated RBC % (auto) (0.0-0.2) /100WBC Sodium 141 (135-145) mmol/L Potassium 5.8 H (3.3-5.1) mmol/L Chloride 114 H (96-108) mmol/L Carbon Dioxide 21 L (22-29) mmol/L Anion Gap 12 (12-20) BUN 27 H (9-16) mg/dL Creatinine 2.37 H (0.5-1.4) mg/dL Estim Creat Clear Calc 15.8 Estimated GFR 19 POC Glucose 216 H 168 H (60-115) mg/dL Random Glucose 271 H (60-115) mg/dL Calcium 9.2 (8.4-10.2) mg/dL Magnesium (1.6-2.6) mg/dL Total Bilirubin (0.0-1.0) mg/dL Direct Bilirubin (0.0-0.5) mg/dL AST (5-31) U/L ALT (0-31) U/L Alkaline Phosphatase (39-117) U/L Total Protein (6.5-8.0) g/dL Albumin (3.5-5.0) g/dL Urine Color Urine Appearance Urine pH (5.0-9.0) Ur Specific [place] (1.005-1.025) Urine Protein (Neg-Trace) mg/dL Urine Glucose (UA) (Negative) mg/dL Urine Ketones (Negative) mg/dL Urine Blood (Negative) Urine Nitrite (Negative) Ur Leukocyte Esterase (Negative) Urine RBC (0-2) /HPF Urine WBC (0-5) /HPF Ur Squamous Epith Cells (0-2) /HPF Urine Bacteria (None Seen) Hyaline Casts (0-2) /LPF Acetone, Qual (Negative) 12/17/22 Range/Units 01:02 WBC (4.8-10.8) X10*3/uL RBC (4.20-5.50) X10*6/uL Hgb (12.0-16.0) g/dl Hct (37.0-47.0) % MCV (80.0-98.0) fL MCH (27.0-33.0) pg MCHC (31.0-35.0) g/dl RDW (11.0-16.0) % Plt Count (160-400) X10*3/uL MPV (9.4-12.3) fL Immature Gran % (Auto) (0.0-0.4) % Neut % (Auto) (45-73) % Lymph % (Auto) (20-40) % [place] % (Auto) (2-11) % Eos % (Auto) (0-4) % Baso % (Auto) (0-2) % Lymph # (Auto) (1.2-4.9) X10*3/uL [place] # (Auto) (0.1-1.2) X10*3/uL Eos # (Auto) (0.0-0.4) X10*3/uL Baso # (Auto) (0.0-0.2) X10*3/uL Abs Immat Gran (auto) (0.00-0.03) X10*3/uL Absolute Neuts (auto) (2.0-8.3) x10*3/uL Absolute Nucleated RBC (0.0-0.012) X10*3/uL Nucleated RBC % (auto) (0.0-0.2) /100WBC Sodium 145 (135-145) mmol/L Potassium 4.6 D (3.3-5.1) mmol/L Chloride 113 H (96-108) mmol/L Carbon Dioxide 24 (22-29) mmol/L Anion Gap 13 (12-20) BUN 27 H (9-16) mg/dL Creatinine 2.20 H (0.5-1.4) mg/dL Estim Creat Clear Calc 17.0 Estimated GFR 21 POC Glucose (60-115) mg/dL Random Glucose 211 H (60-115) mg/dL Calcium 9.1 (8.4-10.2) mg/dL Magnesium (1.6-2.6) mg/dL Total Bilirubin (0.0-1.0) mg/dL Direct Bilirubin (0.0-0.5) mg/dL AST (5-31) U/L ALT (0-31) U/L Alkaline Phosphatase (39-117) U/L Total Protein (6.5-8.0) g/dL Albumin (3.5-5.0) g/dL Urine Color Urine Appearance Urine pH (5.0-9.0) Ur Specific [place] (1.005-1.025) Urine Protein (Neg-Trace) mg/dL Urine Glucose (UA) (Negative) mg/dL Urine Ketones (Negative) mg/dL Urine Blood (Negative) Urine Nitrite (Negative) Ur Leukocyte Esterase (Negative) Urine RBC (0-2) /HPF Urine WBC (0-5) /HPF Ur Squamous Epith Cells (0-2) /HPF Urine Bacteria (None Seen) Hyaline Casts (0-2) /LPF Acetone, Qual (Negative) <Stephanie Juan MD - Last Filed: 12/16/22 21:55> Lab Results 12/16/22 12/16/22 12/16/22 Range/Units 13:27 13:27 16:23 WBC 7.2 (4.8-10.8) X10*3/uL RBC 3.76 L (4.20-5.50) X10*6/uL Hgb 11.7 L (12.0-16.0) g/dl Hct 36.0 L (37.0-47.0) % MCV 95.7 (80.0-98.0) fL MCH 31.1 (27.0-33.0) pg MCHC 32.5 (31.0-35.0) g/dl RDW 12.6 (11.0-16.0) % Plt Count 253 (160-400) X10*3/uL MPV 11.9 (9.4-12.3) fL Immature Gran % (Auto) 0.3 (0.0-0.4) % Neut % (Auto) 57.0 (45-73) % Lymph % (Auto) 31.8 (20-40) % [place] % (Auto) 6.3 (2-11) % Eos % (Auto) 4.0 (0-4) % Baso % (Auto) 0.6 (0-2) % Lymph # (Auto) 2.3 (1.2-4.9) X10*3/uL [place] # (Auto) 0.5 (0.1-1.2) X10*3/uL Eos # (Auto) 0.3 (0.0-0.4) X10*3/uL Baso # (Auto) 0.0 (0.0-0.2) X10*3/uL Abs Immat Gran (auto) 0.02 (0.00-0.03) X10*3/uL Absolute Neuts (auto) 4.1 (2.0-8.3) x10*3/uL Absolute Nucleated RBC 0.000 (0.0-0.012) X10*3/uL Nucleated RBC % (auto) 0.0 (0.0-0.2) /100WBC Sodium 140 (135-145) mmol/L Potassium 5.7 H (3.3-5.1) mmol/L Chloride 111 H (96-108) mmol/L Carbon Dioxide 22 (22-29) mmol/L Anion Gap 13 (12-20) BUN 31 H (9-16) mg/dL Creatinine 2.62 H (0.5-1.4) mg/dL Estim Creat Clear Calc 14.3 Estimated GFR 17 POC Glucose (60-115) mg/dL Random Glucose 241 H (60-115) mg/dL Calcium 9.3 D (8.4-10.2) mg/dL Magnesium 2.0 (1.6-2.6) mg/dL Total Bilirubin 0.4 (0.0-1.0) mg/dL Direct Bilirubin 0.1 (0.0-0.5) mg/dL AST 14 (5-31) U/L ALT 14 (0-31) U/L Alkaline Phosphatase 74 (39-117) U/L Total Protein 6.9 (6.5-8.0) g/dL Albumin 3.7 (3.5-5.0) g/dL Urine Color Yellow Urine Appearance Clear Urine pH 5.5 (5.0-9.0) Ur Specific [place] 1.010 (1.005-1.025) Urine Protein 30 (1+) H (Neg-Trace) mg/dL Urine Glucose (UA) 100 H (Negative) mg/dL Urine Ketones Negative (Negative) mg/dL Urine Blood Negative (Negative) Urine Nitrite Negative (Negative) Ur Leukocyte Esterase Negative (Negative) Urine RBC 0-2 (0-2) /HPF Urine WBC 0-5 (0-5) /HPF Ur Squamous Epith Cells 0-2 (0-2) /HPF Urine Bacteria None Seen (None Seen) Hyaline Casts 0-2 (0-2) /LPF Acetone, Qual Negative (Negative) 12/16/22 12/16/22 12/16/22 Range/Units 16:28 20:41 23:17 WBC (4.8-10.8) X10*3/uL RBC (4.20-5.50) X10*6/uL Hgb (12.0-16.0) g/dl Hct (37.0-47.0) % MCV (80.0-98.0) fL MCH (27.0-33.0) pg MCHC (31.0-35.0) g/dl RDW (11.0-16.0) % Plt Count (160-400) X10*3/uL MPV (9.4-12.3) fL Immature Gran % (Auto) (0.0-0.4) % Neut % (Auto) (45-73) % Lymph % (Auto) (20-40) % [place] [place] % (Auto) (2-11) % Eos % (Auto) (0-4) % Baso % (Auto) (0-2) % Lymph # (Auto) (1.2-4.9) X10*3/uL [place] # (Auto) (0.1-1.2) X10*3/uL Eos # (Auto) (0.0-0.4) X10*3/uL Baso # (Auto) (0.0-0.2) X10*3/uL Abs Immat Gran (auto) (0.00-0.03) X10*3/uL Absolute Neuts (auto) (2.0-8.3) x10*3/uL Absolute Nucleated RBC (0.0-0.012) X10*3/uL Nucleated RBC % (auto) (0.0-0.2) /100WBC Sodium 141 (135-145) mmol/L Potassium 5.8 H (3.3-5.1) mmol/L Chloride 114 H (96-108) mmol/L Carbon Dioxide 21 L (22-29) mmol/L Anion Gap 12 (12-20) BUN 27 H (9-16) mg/dL Creatinine 2.37 H (0.5-1.4) mg/dL Estim Creat Clear Calc 15.8 Estimated GFR 19 POC Glucose 216 H 168 H (60-115) mg/dL Random Glucose 271 H (60-115) mg/dL Calcium 9.2 (8.4-10.2) mg/dL Magnesium (1.6-2.6) mg/dL Total Bilirubin (0.0-1.0) mg/dL Direct Bilirubin (0.0-0.5) mg/dL AST (5-31) U/L ALT (0-31) U/L Alkaline Phosphatase (39-117) U/L Total Protein (6.5-8.0) g/dL Albumin (3.5-5.0) g/dL Urine Color Urine Appearance Urine pH (5.0-9.0) Ur Specific [place] (1.005-1.025) Urine Protein (Neg-Trace) mg/dL Urine Glucose (UA) (Negative) mg/dL Urine Ketones (Negative) mg/dL Urine Blood (Negative) Urine Nitrite (Negative) Ur Leukocyte Esterase (Negative) Urine RBC (0-2) /HPF Urine WBC (0-5) /HPF Ur Squamous Epith Cells (0-2) /HPF Urine Bacteria (None Seen) Hyaline Casts (0-2) /LPF Acetone, Qual (Negative) 12/17/22 Range/Units 01:02 WBC (4.8-10.8) X10*3/uL RBC (4.20-5.50) X10*6/uL Hgb (12.0-16.0) g/dl Hct (37.0-47.0) % MCV (80.0-98.0) fL MCH (27.0-33.0) pg MCHC (31.0-35.0) g/dl RDW (11.0-16.0) % Plt Count (160-400) X10*3/uL MPV (9.4-12.3) fL Immature Gran % (Auto) (0.0-0.4) % Neut % (Auto) (45-73) % Lymph % (Auto) (20-40) % [place] % (Auto) (2-11) % Eos % (Auto) (0-4) % Baso % (Auto) (0-2) % Lymph # (Auto) (1.2-4.9) X10*3/uL [place] # (Auto) (0.1-1.2) X10*3/uL Eos # (Auto) (0.0-0.4) X10*3/uL Baso # (Auto) (0.0-0.2) X10*3/uL Abs Immat Gran (auto) (0.00-0.03) X10*3/uL Absolute Neuts (auto) (2.0-8.3) x10*3/uL Absolute Nucleated RBC (0.0-0.012) X10*3/uL Nucleated RBC % (auto) (0.0-0.2) /100WBC Sodium 145 (135-145) mmol/L Potassium 4.6 D (3.3-5.1) mmol/L Chloride 113 H (96-108) mmol/L Carbon Dioxide 24 (22-29) mmol/L Anion Gap 13 (12-20) BUN 27 H (9-16) mg/dL Creatinine 2.20 H (0.5-1.4) mg/dL Estim Creat Clear Calc 17.0 Estimated GFR 21 POC Glucose (60-115) mg/dL Random Glucose 211 H (60-115) mg/dL Calcium 9.1 (8.4-10.2) mg/dL Magnesium (1.6-2.6) mg/dL Total Bilirubin (0.0-1.0) mg/dL Direct Bilirubin (0.0-0.5) mg/dL AST (5-31) U/L ALT (0-31) U/L Alkaline Phosphatase (39-117) U/L Total Protein (6.5-8.0) g/dL Albumin (3.5-5.0) g/dL Urine Color Urine Appearance Urine pH (5.0-9.0) Ur Specific [place] (1.005-1.025) Urine Protein (Neg-Trace) mg/dL Urine Glucose (UA) (Negative) mg/dL Urine Ketones (Negative) mg/dL Urine Blood (Negative) Urine Nitrite (Negative) Ur Leukocyte Esterase (Negative) Urine RBC (0-2) /HPF Urine WBC (0-5) /HPF Ur Squamous Epith Cells (0-2) /HPF Urine Bacteria (None Seen) Hyaline Casts (0-2) /LPF Acetone, Qual (Negative) <NESSA Lentz - Last Filed: 12/17/22 01:34> Independent Interpretation I performed an independent interpretation of an: EKG <Stephanie Juan MD - Last Filed: 12/16/22 21:55> Interpretation: Normal sinus rhythm, HR-70, no STEMI, no peaked T-waves, IN/QRS/QTC are within normal limits. <Stephanie Juan MD - Last Filed: 12/16/22 21:55> External Record Review External record reviewed: Outpatient record and Prior outpatient labs <Stephanie Juan MD - Last Filed: 12/16/22 21:55> Chronic Conditions Patient?s care impacted by: Diabetes and Hypertension <Stephanie Juan MD - Last Filed: 12/16/22 21:55> Discharge Plan Discharge Clinical Impression: Acute kidney injury superimposed on CKD, Hyperkalemia, Hyperglycemia due to diabetes mellitus <NESSA Christie - Last Filed: 12/16/22 12:48> Patient Disposition: Home, Self-Care <NESSA Christie - Last Filed: 12/16/22 12:48> Instructions: Acute Kidney Injury (DC), Potassium Content of Foods List (ED), Hyperkalemia (ED) <NESSA Christie - Last Filed: 12/16/22 12:48> Additional Instructions: Take your medications as prescribed. If you were prescribed antibiotics today, it is important that you take your medication to their entirety, do not skip any doses, do not finish them early. Follow-up with your primary care provider this week. Follow-up with Nephrology as soon as possible. Return to the emergency department with new or worsening symptoms. Such as fevers, chills, chest pain, shortness of breath, nausea, vomiting, dizziness, headache, vision changes, lethargy In case of emergency call 911 Potassium was noted to be elevated while in the hospital however came down after medications. Please follow-up with PCP to have repeat laboratory studies done and please see Nephrology as soon as possible. <NESSA Christie - Last Filed: 12/16/22 12:48> Prescriptions: No Action (DME) blood-glucose meter [FreeStyle [place] Lite] Kit See Rx Instructions .ROUTE .MEDSUPPLY Qty: 1 0RF Rx Instructions: As directed omeprazole 20 mg capsule,delayed release(DR/EC) 20 mg PO QAM 90 Days Qty: 90 1RF (DME) pen needle, diabetic [Novofine 32] 32 gauge x 1/4 needle See Rx Instructions subcut DAILY Qty: 50 2RF Rx Instructions: As directed insulin degludec [Tresiba FlexTouch U-100] 100 unit/mL (3 mL) insulin pen 10 unit subcut DAILY 30 Days Qty: 15 6RF Rx Instructions: JAE, no substitutions. simvastatin 40 mg tablet 40 mg PO BEDTIME 90 Days Qty: 90 1RF cholecalciferol (vitamin D3) 25 mcg (1,000 unit) capsule 25 mcg PO DAILY 90 Days Qty: 90 1RF olmesartan 5 mg tablet 5 mg PO BID 90 Days Qty: 180 0RF (DME) blood-glucose meter [OneTouch Ultra2 Meter] Kit See Rx Instructions .Route Qty: 1 0RF Rx Instructions: As directed (DME) OneTouch Ultra Test Strip See Rx Instructions .Route Qty: 50 11RF Rx Instructions: Use 1 test strip twice a day (DME) lancets [OneTouch UltraSoft Lancets] Misc See Rx Instructions .Route Qty: 100 11RF Rx Instructions: Use 1 lancet twice a day (DME) walker Misc See Rx Instructions .Route Qty: 1 0RF Rx Instructions: with seat (DME) wheelchair See Rx Instructions .Route .MEDSUPPLY Qty: 1 0RF Rx Instructions: As directed Ozempic 1 mg/dose (4 mg/3 mL) pen injector 1 mg subcut QWEEK 30 Days Qty: 3.75 11RF (DME) FreeStyle Lite Strips Strip See Rx Instructions .Route Rx Instructions: As directed (DME) lancets [FreeStyle Lancets] 28 gauge misc See Rx Instructions .Route Rx Instructions: As directed <NESSA Christie - Last Filed: 12/16/22 12:48> Referrals: Jacobo Macias MD [Physician] - 1 day Lamar Hall MD [Primary Care Provider] - 2 days <NESSA Christie - Last Filed: 12/16/22 12:48> Stand Alone Forms: Work/School Release <NESSA Christie - Last Filed: 12/16/22 12:48>
--- NOTE | 2022-12-16 12:47 | ECG_ITS ---
Test Reason : radiating pain/ high bp Blood Pressure : / mmHG Vent. Rate : 070 BPM Atrial Rate : 070 BPM P-R Int : 154 ms QRS Dur : 066 ms QT Int : 382 ms P-R-T Axes : 000 -07 064 degrees QTc Int : 412 ms Normal sinus rhythm Minimal voltage criteria for LVH, may be normal variant ( R in aVL ) Borderline ECG When compared with ECG of 01-DEC-2018 13:58, No significant change was found Referred By: Candi Maldonado Electronically Signed By:Cristian Khan
[2022-12-16 13:34] LABS: MANUAL DIFF FLAG NO
[2022-12-16 13:45] LABS: Basophils Percent Auto 0.6 % (0-2); Eosinophils Absolute Auto 0.3 X10*3/uL (0.0-0.4); Hemoglobin 11.7 g/dl (12.0-16.0); Imm Gran Abs Auto 0.02 X10*3/uL (0.00-0.03); Imm Gran Pct Auto 0.3 % (0.0-0.4); Lymphocytes Absolute Auto 2.3 X10*3/uL (1.2-4.9); Lymphocytes Percent Auto 31.8 % (20-40); Mean Corpuscular HGB Conc 32.5 g/dl (31.0-35.0); Mean Corpuscular Hemoglobin 31.1 pg (27.0-33.0); Mean Corpuscular Volume 95.7 fL (80.0-98.0); Mean Platelet Volume 11.9 fL (9.4-12.3); Monocytes Absolute Auto 0.5 X10*3/uL (0.1-1.2); Monocytes Percent Auto 6.3 % (2-11); Neutrophils Absolute Auto 4.1 x10*3/uL (2.0-8.3); Platelet Count 253 X10*3/uL (160-400); Red Blood Count 3.76 X10*6/uL (4.20-5.50); Red Cell Distribution Width 12.6 % (11.0-16.0); White Blood Count 7.2 X10*3/uL (4.8-10.8)
[2022-12-16 13:51] LABS: Alanine Aminotransferase 14 U/L (0-31); Albumin Level 3.7 g/dL (3.5-5.0); Alkaline Phosphatase 74 U/L (39-117); Anion Gap 13 (12-20); Aspartate Amino Transferase 14 U/L (5-31); Bilirubin Direct 0.1 mg/dL (0.0-0.5); Bilirubin Total 0.4 mg/dL (0.0-1.0); Blood Urea Nitrogen 31 mg/dL (9-16); Calcium 9.3 mg/dL (8.4-10.2); Carbon Dioxide 22 mmol/L (22-29); Chloride 111 mmol/L (96-108); Creatinine Clr Calc Pharmacy 14.3; Estimated Glomerular Filt Rate 17; Glucose Random 241 mg/dL (60-115); Potassium 5.7 mmol/L (3.3-5.1); Sodium 140 mmol/L (135-145); Total Protein 6.9 g/dL (6.5-8.0)
[2022-12-16 15:12] LABS: Acetone, serum QL Negative (Negative)
[2022-12-16 15:21] VITALS: BP 166/68; PULSE 70; RESP 14; TEMP 36.4; O2SAT 100
[2022-12-16 16:32] LABS: Glucose, Whole Blood 216 mg/dL (60-115)
[2022-12-16 16:36] LABS: Appearance Urine Clear; Color Urine Yellow; Glucose Urine UA 100 mg/dL (Negative); Leukocyte Esterase Urine Negative (Negative); Nitrite Urine Negative (Negative); PH 5.5 (5.0-9.0); UMIC TRIGGER UACC YES; Urine Blood Negative (Negative); Urine Ketones Negative (Negative); Urine Protein 30 (1+) mg/dL (Neg-Trace)
[2022-12-16] MEDS: 0.9 % Sodium Chloride 500 ML 999 ML IV (18:00)
[2022-12-16 18:50] LABS: Bacteria Urine None Seen (None Seen); Hyaline Casts Urine 0-2 /LPF (0-2); RBC Urine 0-2 /HPF (0-2); Squamous Epithelial Cell Urine 0-2 /HPF (0-2); WBC Urine 0-5 /HPF (0-5)
[2022-12-16 20:00] VITALS: BP 166/73; PULSE 78; RESP 16; TEMP 36.8; O2SAT 98
--- NOTE | 2022-12-16 20:00 | MHC.EDTECH ---
this pct assumed care of pt at 1999 ,pt vitals sign taken pt daughter at bedside .
--- NOTE | 2022-12-16 20:43 | MHC.EDTECH ---
REPEATED LAB DRAWN AND SENT TO LAB .
[2022-12-16 21:01] LABS: Anion Gap 12 (12-20); Blood Urea Nitrogen 27 mg/dL (9-16); Calcium 9.2 mg/dL (8.4-10.2); Carbon Dioxide 21 mmol/L (22-29); Chloride 114 mmol/L (96-108); Creatinine Clr Calc Pharmacy 15.8; Estimated Glomerular Filt Rate 19; Glucose Random 271 mg/dL (60-115); Potassium 5.8 mmol/L (3.3-5.1); Sodium 141 mmol/L (135-145)
[2022-12-16 22:00] VITALS: BP 171/83; PULSE 75; RESP 16; TEMP 36.7
[2022-12-16] MEDS: Sodium Zirconium Cyclosilicate 10 GM POWD.PACK PO (22:14)
[2022-12-16] MEDS: Insulin Lispro 100 UNIT/ML 3 ML VIAL 7 UNIT SUBCUT (22:15)
[2022-12-16 23:24] LABS: Glucose, Whole Blood 168 mg/dL (60-115)
[2022-12-17] VITALS: BP 154/79; PULSE 76; RESP 16; TEMP 36.7; O2SAT 98
--- NOTE | 2022-12-17 01:04 | MHC.EDTECH ---
pt repeated lab drawn and sent to lab .
[2022-12-17 01:30] LABS: Anion Gap 13 (12-20); Blood Urea Nitrogen 27 mg/dL (9-16); Calcium 9.1 mg/dL (8.4-10.2); Carbon Dioxide 24 mmol/L (22-29); Chloride 113 mmol/L (96-108); Estimated Glomerular Filt Rate 21; Glucose Random 211 mg/dL (60-115); Potassium 4.6 mmol/L (3.3-5.1); Sodium 145 mmol/L (135-145)
[2022-12-17 01:40] VITALS: BP 168/55; PULSE 75; RESP 16; TEMP 36.6; O2SAT 98
== END 2022-12-17 01:55 | disposition home or self-care (01) ==
PROVIDERS: Physician Assistant; Emergency Provider Student in an Organized Health Care Education/Training Program; PCP Internal Medicine
DX: E11.22 Type 2 diabetes mellitus with diabetic chronic kidney disease (principal); E11.65 Type 2 diabetes mellitus with hyperglycemia; I12.9 Hypertensive chronic kidney disease with stage 1 through stage 4 chronic kidney disease, or unspecified chronic kidney disease; N18.4 Chronic kidney disease, stage 4 (severe); N17.9 Acute kidney failure, unspecified; D63.1 Anemia in chronic kidney disease; E78.5 Hyperlipidemia, unspecified
CPT/HCPCS: 36415; 80048; 80076; 81001; 82009; 82947; 83735; 85025; 93005; 96360; 96361; 99284; 99285

== ENCOUNTER 2023-05-01 10:49 | Outpatient (AMB) | payer MEDICARE, MEDICAID, SELFPAY ==
[2023-05-01 11:02] VITALS: BP 118/76; BMI 30.4
--- NOTE | 2023-05-01 11:02 | MHC.PC.OV ---
Vital Signs 05/01/23 11:02 Height 5 ft 1 in Weight 161 lb BMI 30.4 BP 118/76 Blood Pressure Location Lt brachial Position Sitting Intake Visit Reasons: dm Intake Note: Patient here here for a physical exam Coil Winder Repair Required: No Accompanied by: Grand Child Allergies aspirin Allergy (Intermediate, Verified 05/01/23 11:14) unknown Penicillins Allergy (Verified 05/01/23 11:14) Unknown metformin Adverse Reaction (Intermediate, Verified 05/01/23 11:14) diarrhea Medication List - Last Reconciled 05/01/23 by Lamar Wcik MD blood sugar diagnostic (OneTouch Ultra Test strips) Use 1 test strip twice a day blood sugar diagnostic (FreeStyle Lite Strips) As directed blood-glucose meter (OneTouch Ultra2 Meter kit) As directed blood-glucose meter (FreeStyle [place] Lite kit) As directed cholecalciferol (vitamin D3) 25 mcg PO DAILY 90 days lancets (OneTouch UltraSoft Lancets) Use 1 lancet twice a day lancets (FreeStyle Lancets) As directed olmesartan 5 mg PO BID 90 days omeprazole 20 mg PO QAM 90 days pen needle, diabetic (Novofine 32) As directed semaglutide (Ozempic) 1 mg (0.75 mL) subcut QWEEK 30 days simvastatin 40 mg PO BEDTIME 90 days Tresiba FlexTouch U-100 (insulin degludec) 15 units (0.15 mL) subcut DAILY 30 days NS walker with seat [wheelchair As directed] Tobacco use date assessed: 12/23/22 Fall risk assessment: No Falls in past year Last assessed Fall Risk: 05/01/23 Dental Screening Dental Screen Date: 05/01/23 Did you have a dental visit in the last 12 months?: No Did you have a dental problem in the last 6 months where you did not have access to dental care?: No Was dental information given to patient?: Patient has dentist HPI HPI Comments History of Present Illness Details This is an 87-year-old female with diabetes mellitus type 2, hypertension, hyperlipidemia and chronic kidney disease stage 4 that comes today accompanied by CYBER CRIME INVESTIGATOR for follow-up on her conditions. A1c within goal. Blood pressure stable. Lipid panel will be order and her LDL goal should be less than 70. Chronic kidney disease is follow by Nephrology and has been having right flank pain for a while. CYBER CRIME INVESTIGATOR says that she is having some memory loss and mood changes and I will refer her to Neurology for this matter. No chest pain or shortness of breath. [facility] Medical History (Updated 05/01/23 @ 11:20 by Lamar Wick MD) Goiter HLD (hyperlipidemia) HTN (hypertension) T2DM (type 2 diabetes mellitus) Anemia in chronic kidney disease CKD (chronic kidney disease) stage 4, GFR 15-29 ml/min Diabetes mellitus Essential hypertension Primary osteoarthritis of knees, bilateral Surgical History Hx of eye surgery History of knee replacement procedure of right knee History of cholecystectomy History of total hysterectomy History of appendectomy History of total knee arthroplasty (~12/22/18) Family History Father No problems noted. Mother No problems noted. Social History Household Members: Children Housing: Apartment Alcohol intake: never Patient Tobacco Use Status: Never used Tobacco e-Cigarette/Vaping Use: Never Used Second Hand Smoke Exposure: No Advance Directives Date on File: 12/16/22 service: No Current occupational status: disabled Cognitive needs: No Hearing needs: No Vision needs: No Questionnaire Thrive Questionnaire Date Thrive assessed: 12/23/22 MERRITT-7 AMB Questionnaire MERRITT-7 Date MERRITT - 7 assessed: 12/23/22 Source: Developed by Drs. Ramon Coreas, Allie Toscano, Guy Solis and colleagues, with an educational valentin from [employer]. Review of Systems Const All systems reviewed & are unremarkable except as noted in HPI and below Eyes Reports no additional complaints, Denies change in vision and Denies other visual disturbances Card Denies chest pain at rest, Denies chest pain with activity, Denies edema, Denies irregular heart rhythm, Denies claudication, Denies dyspnea, Denies dyspnea on exertion, Denies orthopnea, Denies paroxysmal nocturnal dyspnea and Denies slow heart rate Resp Denies cough, Denies dyspnea and Denies dyspnea on exertion GI Denies abdominal pain, Denies change in bowel habits, Denies excessive flatus, Denies nausea and Denies vomiting Denies urinary incontinence, Denies urinary hesitancy and Denies urinary urgency Musc Denies abnormal gait, Denies atrophy, Denies deformity and Denies limited range of motion Skin/Breast Denies bleeding lesions, Denies changing lesions and Denies rash Neuro Denies abnormal gait and Denies lack of coordination Physical exam (Primary Care) Vital Signs: Last Vital Signs BP 118/76 05/01/23 11:02 BMI result Body Mass Index 30.4 Tobacco/Smoking Status: Tobacco use Status Tobacco use date assessed 12/23/22 05/01/23 11:06 Patient Tobacco Use Status Never used Tobacco 05/01/23 11:06 e-Cigarette/Vaping Use Never Used 05/01/23 11:06 Thrive Assessment: Date of Thrive Assessment Date Thrive assessed 12/23/22 05/01/23 11:06 Eyes General: appearance normal, both eyes and all related structures Eyelids: Yes eyelids normal Conjunctivae: conjunctivae normal Neck Neck: Yes normal visual inspection and Yes supple Resp Effort & Inspection: normal respiratory effort Auscultation: clear to auscultation bilaterally Cardio Jugular venous distension: no JVD Rate: regular rate Rhythm: regular rhythm Heart sounds: S1 normal heart sound present and S2 normal heart sound present Extrem General: Yes full ROM Results AMB Hemoglobin A1c AMB Hemoglobin A1c 6.3 % Last Edit by RETA Quintero on 05/01/23 11:21 Results Reviewed Results Reviewed: Laboratory Last Values Hgb A1c (Clinic) 6.3 % (4.0-6.0) H 05/01/23 11:07 Assessment and Plan Assessment & Plan (1) T2DM (type 2 diabetes mellitus): Code(s): E11.9 - Type 2 diabetes mellitus without complications Qualifiers: Diabetes mellitus exterminator insulin use: with exterminator use Diabetes mellitus complication status: with hyperglycemia Qualified Code(s): E11.65 - Type 2 diabetes mellitus with hyperglycemia; Z79.4 - buttermaker (current) use of insulin Plan: Continue Tresiba and Ozempic. A1c goal is equal or less than 7%. (2) HTN (hypertension): Code(s): I10 - Essential (primary) hypertension Qualifiers: Hypertension type: primary hypertension Qualified Code(s): I10 - Essential (primary) hypertension Plan: Continue olmesartan. Blood pressure goal is equal or less than 130/80. (3) HLD (hyperlipidemia): Code(s): E78.5 - Hyperlipidemia, unspecified Qualifiers: Hyperlipidemia type: pure hypertriglyceridemia Qualified Code(s): E78.1 - Pure hyperglyceridemia Plan: Continue statins. LDL goal is less than 70. (4) CKD (chronic kidney disease) stage 4, GFR 15-29 ml/min: Code(s): N18.4 - Chronic kidney disease, stage 4 (severe) Plan: Avoid NSAIDs. Keep blood pressure less than 130/80. Follow-up with nephrology. Orders: Orders AMB Hemoglobin A1c Today E11.9 - Type 2 diabetes mellitus without complications Lipid Panel 4 Months E78.5 - Hyperlipidemia, unspecified Microalbumin, Random (w Creat) 4 Months E11.9 - Type 2 diabetes mellitus without complications Vitamin D 25-OH Total 4 Months E55.9 - Vitamin D deficiency, unspecified Comprehensive [place]. Panel Fast 4 Months E11.65 - Type 2 diabetes mellitus with hyperglycemia, Z79.4 - buttermaker (current) use of insulin renal BI Today N18.4 - Chronic kidney disease, stage 4 (severe) Referrals Neurology Referral R41.89 - Other symptoms and signs involving cognitive functions and awareness Medications: Changed From blood-glucose meter ([employer] Ultra2 Meter kit) As directed 1 ea 0RF E11.9 - Type 2 diabetes mellitus without complications To blood-glucose meter As directed 1 ea 0RF E11.9 - Type 2 diabetes mellitus without complications From lancets (OneTouch UltraSoft Lancets) Use 1 lancet twice a day 100 ea 11RF E11.9 - Type 2 diabetes mellitus without complications To lancets Use 1 lancet twice a day 100 ea 11RF E11.9 - Type 2 diabetes mellitus without complications Refilled semaglutide (Ozempic) 1 mg (0.75 mL) subcut QWEEK 30 days 3.75 mL 11RF E11.65 - Type 2 diabetes mellitus with hyperglycemia, Z79.4 - buttermaker (current) use of insulin olmesartan 5 mg PO BID 90 days 180 tabs 0RF blood sugar diagnostic (OneTouch Ultra Test strips) Use 1 test strip twice a day 50 ea 11RF E11.9 - Type 2 diabetes mellitus without complications cholecalciferol (vitamin D3) 25 mcg PO DAILY 90 days 90 caps 1RF Coding Level of Care Code Est Pt Level 4 (21562) Diagnoses Type 2 diabetes mellitus with hyperglycemia, with long-term current use of insulin E11.65; Z79.4 Diabetes mellitus exterminator insulin use: with senior care use Diabetes mellitus complication status: with hyperglycemia Primary hypertension I10 Hypertension type: primary hypertension Pure hypertriglyceridemia E78.1 Hyperlipidemia type: pure hypertriglyceridemia CKD (chronic kidney disease) stage 4, GFR 15-29 ml/min N18.4 Time Spent (min) 23
== END 2023-05-01 11:27 | disposition home or self-care (01) ==
PROVIDERS: PCP Internal Medicine; Visit Provider Internal Medicine
DX: E11.65 Type 2 diabetes mellitus with hyperglycemia (principal); Z79.4 Long term (current) use of insulin; I12.9 Hypertensive chronic kidney disease with stage 1 through stage 4 chronic kidney disease, or unspecified chronic kidney disease; N18.4 Chronic kidney disease, stage 4 (severe); E78.1 Pure hyperglyceridemia
CPT/HCPCS: 83036; 99214

== ENCOUNTER 2023-05-14 10:13 | Outpatient (AMB) | payer MEDICARE, MEDICAID, SELFPAY ==
--- NOTE | 2023-05-14 10:20 | MHC.OFFVIS ---
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 Patient states the doctor sent her here for memory issue that she denies she has. very forgetful she was informed about this appointment yesterday and forgot today. Allergies aspirin Allergy (Intermediate, Verified 05/14/23 10:43) unknown Penicillins Allergy (Verified 05/14/23 10:43) Unknown metformin Adverse Reaction (Intermediate, Verified 05/14/23 10:43) diarrhea Medication List - Last Reconciled 05/14/23 by KIRAN Walsh blood sugar diagnostic (OneTouch Ultra Test strips) Use 1 test strip twice a day blood sugar diagnostic (FreeStyle Lite Strips) As directed blood-glucose meter As directed blood-glucose meter (FreeStyle [place] Lite kit) As directed cholecalciferol (vitamin D3) 25 mcg PO DAILY 90 days lancets Use 1 lancet twice a day lancets (FreeStyle Lancets) As directed olmesartan 5 mg PO BID 90 days omeprazole 20 mg PO QAM 90 days pen needle, diabetic (Novofine 32) As directed semaglutide (Ozempic) 1 mg (0.75 mL) subcut QWEEK 30 days simvastatin 40 mg PO BEDTIME 90 days Tresiba FlexTouch U-100 (insulin degludec) 15 units (0.15 mL) subcut DAILY 30 days NS walker with seat [wheelchair As directed] HPI HPI Comments History of Present Illness Details 87-yr-old female presents for neurological evaluation of: cognitive difficulties. Accompanied by Brittney dave. She lives with her retired dtr. However, pt does not always listen to her dtr, so her granddtr has taken the school sophie off from work to help. She has a JAVA LEAD ARCHITECT to help with ADLs d/t body pains. She can prepare simple foods, but family does not let her cook d/t hx of forgetting to shut the stove off. She forgets about her appointments. She knows her family members names, but not actors etc. She is prone to repeat herself. She has difficulty following a conversation or forgetting why she went into a room. She eats and drinks well- her blood sugar varies. She feels she is not sleeping as well lately. She denies parasomnias. She does word findings puzzles. She does play binBugBuster w/ her family- granddtr says they often have to let her win- she will be convinced that the letter she has is what was called. She denies visual hallucinations, but sometimes hears someone call her name that is not there. Tries to walk in her house, but no exercise. She completed 10th grade, and then took her GED. 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 She moved to the [place] at age 81, to help better manage her health issues. Patient endorses: gait difficulties d/t chronic bilateral knee pain. And patient denies: Tremors, hyposmia, PFSH Medical History Anemia in chronic kidney disease CKD (chronic kidney disease) stage 4, GFR 15-29 ml/min Diabetes mellitus Essential hypertension Goiter HLD (hyperlipidemia) HTN (hypertension) Primary osteoarthritis of knees, bilateral T2DM (type 2 diabetes mellitus) Surgical History Hx of eye surgery History of knee replacement procedure of right knee History of cholecystectomy History of total hysterectomy History of appendectomy History of total knee arthroplasty (~12/22/18) Family History Father No problems noted. Mother No problems noted. Social History Household Members: Children Housing: Apartment Alcohol intake: never Patient Tobacco Use Status: Never used Tobacco e-Cigarette/Vaping Use: Never Used Second Hand Smoke Exposure: No Advance Directives Date on File: 12/16/22 service: No Current occupational status: disabled Cognitive needs: No Hearing needs: No Vision needs: No Review of Systems Const All systems reviewed & are unremarkable except as noted in HPI and below Physical Exam Vital Signs: Last Vital Signs BP 150/86 H 05/14/23 10:21 BMI result Body Mass Index 30.4 Const General: cooperative and no acute distress HEENT Head: Yes normocephalic Resp Effort & Inspection: normal respiratory effort and able to speak in complete sentences Neuro Other: Modified/limited MMSE- Time: Correct: April, Summer/Fall Incorrect: rome Vargas, Place: Correct: [place], [place] Incorrect: [place] Spell TOM in reverse: 08/29 after 4 attempts ODOMU, ODOMU, ODUNM, EDWINA Item identification- 2 3 word recall- 3/3 immediately 0/3 on 3 minute recall- did not recall what 3 words we spoke of- stated Tom, watch, pen Sentence- full sentence [employer] drawing- poor Clock- Poor- Shakir face of clock and placed numbers w/ just slight difficulty- spacing just a bit off. However, pt draw hands of clock, as ? a separate hand-like shape, and 10 of 2, as 10-8 = 2 General: CN's II-XI intact bilaterally Gait exam (Neuro): Normal gait present Motor exam (neuro): 5/5 motor strength present throughout Deep tendon reflexes (DTR's): Right triceps reflex intensity grade: 2+, Left triceps reflex intensity grade: 2+, Rt Biceps (C5, C6): 2+, Left biceps reflex intensity grade: 2+, Right brachioradialis reflex intensity grade: 2+, Left brachioradialis reflex intensity grade: 2+, Right patellar reflex intensity grade: 1+ and Left patellar reflex intensity grade: 1+ Psych Appearance: grossly normal Speech and movement: Normal speech and movement present Affect: normal affect Attitude: cooperative Assessment & Plan Assessment & Plan (1) Cognitive impairment: Code(s): R41.89 - Other symptoms and signs involving cognitive functions and awareness Plan Discussed that pt's history and performance on tohelenaa's limited MMSE do appear to be c/w a dementia process, I would like to do some additional tetsing to determine if a vascular process, or other demetia process. Pt advised to undergo brain MRI to assess for central etiology of cognitive impairment. Will check labs for common etiologies. Concur w/ pt living w/ family. Continue family support w/ meals, finances, medications. Future considerations- neuro-psych eval, trial of neuroprotection tx, sleep study. f/u in 3 months or sooner prn. Orders: Orders LAMAR Reflex Titer and Pattern Today D63.1 - Anemia in chronic kidney disease, E11.9 - Type 2 diabetes mellitus without complications, I10 - Essential (primary) hypertension, N18.4 - Chronic kidney disease, stage 4 (severe), N18.9 - Chronic kidney disease, unspecified, R41.89 - Other symptoms and signs involving cognitive functions and awareness Vitamin B12 and Folate Today D63.1 - Anemia in chronic kidney disease, E11.9 - Type 2 diabetes mellitus without complications, I10 - Essential (primary) hypertension, N18.4 - Chronic kidney disease, stage 4 (severe), N18.9 - Chronic kidney disease, unspecified, R41.89 - Other symptoms and signs involving cognitive functions and awareness Homocysteine Today D63.1 - Anemia in chronic kidney disease, E11.9 - Type 2 diabetes mellitus without complications, I10 - Essential (primary) hypertension, N18.4 - Chronic kidney disease, stage 4 (severe), N18.9 - Chronic kidney disease, unspecified, R41.89 - Other symptoms and signs involving cognitive functions and awareness Methylmalonic Acid Today D63.1 - Anemia in chronic kidney disease, E11.9 - Type 2 diabetes mellitus without complications, I10 - Essential (primary) hypertension, N18.4 - Chronic kidney disease, stage 4 (severe), N18.9 - Chronic kidney disease, unspecified, R41.89 - Other symptoms and signs involving cognitive functions and awareness Complete Blood Count Auto Diff Today D63.1 - Anemia in chronic kidney disease, E11.9 - Type 2 diabetes mellitus without complications, I10 - Essential (primary) hypertension, N18.4 - Chronic kidney disease, stage 4 (severe), N18.9 - Chronic kidney disease, unspecified, R41.89 - Other symptoms and signs involving cognitive functions and awareness CRP High Sensitivity Today D63.1 - Anemia in chronic kidney disease, E11.9 - Type 2 diabetes mellitus without complications, I10 - Essential (primary) hypertension, N18.4 - Chronic kidney disease, stage 4 (severe), N18.9 - Chronic kidney disease, unspecified, R41.89 - Other symptoms and signs involving cognitive functions and awareness Syphilis Screen Today D63.1 - Anemia in chronic kidney disease, E11.9 - Type 2 diabetes mellitus without complications, I10 - Essential (primary) hypertension, N18.4 - Chronic kidney disease, stage 4 (severe), N18.9 - Chronic kidney disease, unspecified, R41.89 - Other symptoms and signs involving cognitive functions and awareness TSH reflex Free T4 Today D63.1 - Anemia in chronic kidney disease, E11.9 - Type 2 diabetes mellitus without complications, I10 - Essential (primary) hypertension, N18.4 - Chronic kidney disease, stage 4 (severe), N18.9 - Chronic kidney disease, unspecified, R41.89 - Other symptoms and signs involving cognitive functions and awareness HIV Ab/Ag Today D63.1 - Anemia in chronic kidney disease, E11.9 - Type 2 diabetes mellitus without complications, I10 - Essential (primary) hypertension, N18.4 - Chronic kidney disease, stage 4 (severe), N18.9 - Chronic kidney disease, unspecified, R41.89 - Other symptoms and signs involving cognitive functions and awareness Erythrocyte Sedimentation Rate Today D63.1 - Anemia in chronic kidney disease, E11.9 - Type 2 diabetes mellitus without complications, I10 - Essential (primary) hypertension, N18.4 - Chronic kidney disease, stage 4 (severe), N18.9 - Chronic kidney disease, unspecified, R41.89 - Other symptoms and signs involving cognitive functions and awareness Comprehensive Met. Panel Today D63.1 - Anemia in chronic kidney disease, E11.9 - Type 2 diabetes mellitus without complications, I10 - Essential (primary) hypertension, N18.4 - Chronic kidney disease, stage 4 (severe), N18.9 - Chronic kidney disease, unspecified, R41.89 - Other symptoms and signs involving cognitive functions and awareness MR head/brain wo con Today D63.1 - Anemia in chronic kidney disease, E11.9 - Type 2 diabetes mellitus without complications, I10 - Essential (primary) hypertension, N18.4 - Chronic kidney disease, stage 4 (severe), N18.9 - Chronic kidney disease, unspecified, R41.3 - Other amnesia, R41.89 - Other symptoms and signs involving cognitive functions and awareness Coding Level of Care Code New Pt Level 4 (28668) Diagnoses Cognitive impairment R41.89
[2023-05-14 10:21] VITALS: BP 150/86; BMI 30.4
== END 2023-05-14 11:33 | disposition home or self-care (01) ==
PROVIDERS: PCP Internal Medicine; Visit Provider Nurse Practitioner Family
DX: R41.89 Other symptoms and signs involving cognitive functions and awareness (principal)
CPT/HCPCS: 99204

== ENCOUNTER → 2023-05-14 10:13 | Outpatient (BNVA) | payer MEDICARE, MEDICAID, SELFPAY | PROVIDERS: PCP Internal Medicine; Visit Provider Nurse Practitioner Family ==

== ENCOUNTER 2023-05-15 12:29 | Outpatient (REF) | payer MEDICARE, MEDICAID, SELFPAY ==
--- NOTE | ~2023-05-15 | US_ITS ---
EXAMINATION: US RETROPERITONEAL LIMITED (RENAL) CLINICAL INFORMATION: Chronic kidney disease, stage IV (severe). COMPARISON: Ultrasound abdomen complete 05/15/2022. Renal ultrasound 02/10/2018. TECHNIQUE: Real-time imaging of the kidneys. FINDINGS: RIGHT KIDNEY: 10.1 x 4.6 x 5.2 cm (SAG x AP x TRV). The kidney is normal in size and echogenicity. Slightly lobulated contour, unchanged. Renal cortical thickness is normal. No calculi or focal parenchymal lesions. No hydronephrosis. LEFT KIDNEY: Absent. US/US renal RT IMPRESSION: No right-sided hydronephrosis or nephrolithiasis. Absent left kidney.
[2023-05-15 13:19] LABS: MANUAL DIFF FLAG NO
[2023-05-15 14:07] LABS: Basophils Percent Auto 0.5 % (0-2); Eosinophils Absolute Auto 0.2 X10*3/uL (0.0-0.4); Eosinophils Percent Auto 2.2 % (0-4); Hematocrit 37.4 % (37.0-47.0); Imm Gran Abs Auto 0.02 X10*3/uL (0.00-0.03); Imm Gran Pct Auto 0.3 % (0.0-0.4); Lymphocytes Absolute Auto 2.6 X10*3/uL (1.2-4.9); Lymphocytes Percent Auto 34.1 % (20-40); Mean Corpuscular HGB Conc 32.1 g/dl (31.0-35.0); Mean Corpuscular Hemoglobin 31.3 pg (27.0-33.0); Mean Corpuscular Volume 97.7 fL (80.0-98.0); Mean Platelet Volume 11.8 fL (9.4-12.3); Monocytes Absolute Auto 0.4 X10*3/uL (0.1-1.2); Monocytes Percent Auto 5.3 % (2-11); Neutrophils Absolute Auto 4.4 x10*3/uL (2.0-8.3); Neutrophils Percent Auto 57.6 % (45-73); Platelet Count 163 X10*3/uL (160-400); Red Blood Count 3.83 X10*6/uL (4.20-5.50); Red Cell Distribution Width 13.3 % (11.0-16.0); White Blood Count 7.6 X10*3/uL (4.8-10.8)
[2023-05-15 15:06] LABS: Alanine Aminotransferase 14 U/L (0-31); Albumin Level 3.8 g/dL (3.5-5.0); Alkaline Phosphatase 67 U/L (39-117); Anion Gap 13 (12-20); Aspartate Amino Transferase 19 U/L (5-31); Bilirubin Total 0.2 mg/dL (0.0-1.0); Blood Urea Nitrogen 22 mg/dL (9-16); Calcium 9.7 mg/dL (8.4-10.2); Carbon Dioxide 20 mmol/L (22-29); Chloride 111 mmol/L (96-108); Erythrocyte Sedimentation Rate 74 MM/HR (0-20); Estimated Glomerular Filt Rate 26; Glucose Random 74 mg/dL (60-115); Potassium 4.4 mmol/L (3.3-5.1); Sodium 140 mmol/L (135-145); Total Protein 7.7 g/dL (6.5-8.0)
[2023-05-15 15:24] LABS: TSH reflex Free T4 0.59 uIU/mL (0.32-4.0)
[2023-05-15 15:40] LABS: Folate 9.4 ng/mL (> or = 4.0); Vitamin B12 464 pg/mL (200-900)
[2023-05-16 08:11] LABS: Syphilis Screen Nonreactive (Nonreactive)
[2023-05-16 08:23] LABS: HIV AB/AG Nonreactive (Nonreactive); HIV Num 1 0.05 S/CO (0.00-0.99)
[2023-05-19 19:33] LABS: Homocysteine 18.8 umol/L (<10.4)
[2023-05-19 20:09] LABS: CRP High Sensitivity 4.4 mg/L
[2023-05-20 12:28] LABS: Anti Nuclear Antibody Screen NEGATIVE (NEGATIVE)
[2023-05-21 17:14] LABS: Methylmalonic Acid 321 nmol/L (87-318)
== END 2023-05-15 12:30 | disposition home or self-care (01) ==
LOC: HO.US 12:29
PROVIDERS: Nurse Practitioner Family; PCP Internal Medicine; Visit Provider Internal Medicine
DX: Z11.4 Encounter for screening for human immunodeficiency virus [HIV] (principal); I12.9 Hypertensive chronic kidney disease with stage 1 through stage 4 chronic kidney disease, or unspecified chronic kidney disease; E11.22 Type 2 diabetes mellitus with diabetic chronic kidney disease; N18.4 Chronic kidney disease, stage 4 (severe); D63.1 Anemia in chronic kidney disease; R41.89 Other symptoms and signs involving cognitive functions and awareness
CPT/HCPCS: 36415; 76775; 80053; 82607; 82746; 83090; 83921; 84443; 85025; 85652; 86038; 86141; 86780; 87389

== ENCOUNTER 2023-06-26 17:54 | Outpatient (REF) | payer MEDICARE, MEDICAID, SELFPAY ==
--- NOTE | ~2023-06-26 | MR_ITS ---
EXAMINATION: MR BRAIN WITHOUT CONTRAST CLINICAL INFORMATION: 88-year-old with amnesia. COMPARISON: 04/08/2022 MRI. TECHNIQUE: Multiplanar multisequence MR imaging of the brain was done without IV contrast. FINDINGS: Brain Volume: Vgjs-by-[id number] generalized diffuse parenchymal volume loss within the limitations of qualitative assessment, similar to the previous study. Structural: No malformations. Brain and Meninges: DWI sequence demonstrates no restricted diffusion to suggest acute or subacute cerebral ischemia. The gradient refocused imaging demonstrates no abnormal susceptibility-weighted signal loss to suggest hemorrhage, hemosiderin staining or abnormal mineralization. Redemonstrated are numerous, scattered zones of FLAIR/T2 signal hyperintensity in the white matter of both cerebral hemispheres, similar in appearance to the previous study, consistent with chronic ischemic microangiopathy in a patient of this age. No extra-axial fluid collections, space-occupying process or mass effect is identified. Ventricles and Subarachnoid Spaces: The ventricular system and subarachnoid spaces are consistent with hmzu-kt-azagchyn generalized volume loss without hydrocephalus, stable in appearance. Orbital Structures: Bilateral lens extractions are unchanged. Otherwise, the visualized orbital structures are grossly unremarkable within the limitations of the study. Vascular: Signal voids are noted in the visualized major intracranial vessels. Osseous Structures, Sinuses/Mastoids, Extracranial Soft Tissues: Osseous marrow signal intensity is grossly within normal limits. There is a 3.3 cm probable retention cyst in the posterior right maxillary sinus mildly decreased in volume from previous study. Small retention cyst along the floor of the left maxillary sinus is unchanged. MR/MR head/brain wo con IMPRESSION: 1. Chronic ischemic microangiopathy in the white matter of both cerebral hemispheres, similar in appearance to the previous study. No acute intracranial process. 2. Fwos-nn-gnhbqmuo generalized diffuse parenchymal volume loss without hydrocephalus, stable in appearance.
== END 2023-06-26 17:55 | disposition home or self-care (01) ==
LOC: HO.MRI 17:54
PROVIDERS: PCP Internal Medicine; Visit Provider Nurse Practitioner Family
DX: R41.3 Other amnesia (principal); R41.89 Other symptoms and signs involving cognitive functions and awareness
CPT/HCPCS: 70551

== ENCOUNTER 2023-08-04 13:25 | Outpatient (AMB) | payer MEDICARE, SELFPAY ==
--- NOTE | 2023-08-04 13:27 | A.OFFVIS_ITS ---
Intake Vital Signs 08/04/23 13:28 Height 5 ft 1 in Weight 159 lb 6.307 oz BMI 30.1 BP 136/68 Blood Pressure Location Lt brachial Position Sitting Pulse 101 H Pulse Source Pulse Oximeter Intake Visit Reasons: DM2/CONFIRMED Intake Note: Patient present today to follow up on Type 2 Diabetes Mellitus. Last Diabetic Eye exam: Patient had eye surgery years ago and hasn't had her eyes examined since. Last Podiatry Visit: None Random Glucose: 109 mg/dl HgA1C: 6.2% Securities Broker Required: Yes Securities Broker Language: Documentation Lead Name: [facility] medical staff Information Interpreted: non-clinical & clinical Accompanied by: Grand Child Allergies aspirin Allergy (Intermediate, Verified 08/04/23 13:33) unknown Penicillins Allergy (Verified 08/04/23 13:33) Unknown metformin Adverse Reaction (Intermediate, Verified 08/04/23 13:33) diarrhea Medication List - Last Reconciled 08/04/23 by Ramon Taylor MD blood sugar diagnostic (OneTouch Ultra Test strips) Use 1 test strip twice a day blood sugar diagnostic (FreeStyle Lite Strips) As directed blood-glucose meter As directed blood-glucose meter (FreeStyle [place] Lite kit) As directed cholecalciferol (vitamin D3) 25 mcg PO DAILY 90 days donepezil 5 mg PO BEDTIME 30 days lancets Use 1 lancet twice a day lancets (FreeStyle Lancets) As directed olmesartan 5 mg PO BID 90 days omeprazole 20 mg PO QAM 90 days pen needle, diabetic (BD Ultra-Fine Micro Pen Needle) USE DIRECTED semaglutide (Ozempic) 1 mg (0.75 mL) subcut QWEEK 30 days Tresiba FlexTouch U-100 (insulin degludec) 15 units (0.15 mL) subcut DAILY 30 days NS vitamin B complex (B Complex-Vitamin B12 tablet) 1 tab PO DAILY 30 days walker with seat [wheelchair As directed] HPI HPI Comments History of Present Illness Details 88 YO F with PMHx T2DM, CKD Stage 4 and a solitary kidney who is seen in F/U for T2DM. Her Diabetes will not be addressed today. The patient last saw Dr. Lewis on 05/22/2022 She had a recent thyroid US which revealed a diffusely heterogenous goiter with no true nodules only pseudonodules. She presents today to review this. Historical: T2DM: Initially diagnosed with T2DM in 2017. Was initially started on treatment with Metformin, but developed GI distress so this was stopped. Current regimen Ozempic 1.0 mg once a week and Tresiba 20 units qAM. Checks sugars 1 time per day, just first thing in the morning. Unable to download her meter today. She reports am sugars are typically 75-120, often less than 100. Has never had a sugar less than 70. Family history of T2DM in her Sister.. Does not have eyes checked yearly, last eye exam 3 years ago, unsure if retinopathy. Needs to make appt Has neuropathy. Has nephropathy, on olmesartan 5 mg PO BID. UAC 143.3 10/29/2021. Has CKD Stage 4. Follows with Nephrology. Has HLD, on Simvastatin 40 mg PO daily. Denies CAD. Diet: Does not watch her carbs in her diet. Weight: Unchanged. Has not had diabetes education. Thyroid US: 05/15/2022 Right Thyroid Lobe: 5.3 x 3.2 x 1.9 cm, volume 16.7 mL. Parenchyma: The gland echotexture is heterogeneous. Thyroid vascularity is normal. Left Thyroid Lobe: 4.0 x 2.2 x 1.6 cm, volume 7.1 mL. Parenchyma: The gland echotexture is heterogeneous. Thyroid vascularity is normal. Isthmus: 0.5 cm in maximum AP dimension. Estimated total number of nodules greater than or equal to 1 cm: 1. Payloader Operator nodules are described as follows: 1. Location: Right lower pole. ?? ? Size: 1.9 x 1.6 x 2.3 cm, volume 3.7 mL. ?? ? Nodule characteristics: ?? ? Composition: Solid (2). ?? ? Echogenicity: Isoechoic (1). ?? ? Shape: Not taller than wide (0). ?? ? Margins: Smooth (0). ?? ? Echogenic Foci: None (0). ?? ? ACR TI-RADS total points: 3 ?? ? ACR TI-RADS category: 3 2. Location: Right upper pole. ?? ? Size: 0.2 x 0.3 x 0.3 cm, volume 0.01 mL. ?? ? Nodule characteristics: ?? ? Composition: Solid (2). ?? ? Echogenicity: Very hypoechoic (3). ?? ? Shape: Not taller than wide (0). ?? ? Margins: Smooth (0). ?? ? Echogenic Foci: None (0). ?? ? ACR TI-RADS total points: 5 ?? ? ACR TI-RADS category: 4 3. Location: Right upper pole. ?? ? Size: 0.5 x 0.5 x 0.6 cm, volume 0.03 mL. ?? ? Nodule characteristics: ?? ? Composition: Solid (2). ?? ? Echogenicity: Very hypoechoic (3). ?? ? Shape: Not taller than wide (0). ?? ? Margins: Smooth (0). ?? ? Echogenic Foci: None (0). ?? ? ACR TI-RADS total points: 5 ?? ? ACR TI-RADS category: 4 NODES: There are bilateral cervical lymph nodes. There is a left upper cervical 2.6 x 0.5 x 0.6 cm lymph node. This is elongated but normal in transverse dimension and demonstrates normal ultrasound morphology and flow. There is a right lower cervical lymph node. This is normal in size measuring 1.1 x 0.2 x 0.3 cm and demonstrates absent or slitlike hilum. Labs: Laboratory Tests 02/12/22 10:47 TSH 1.50 Free T4 1.04 PFSH Medical History Anemia in chronic kidney disease CKD (chronic kidney disease) stage 4, GFR 15-29 ml/min Diabetes mellitus Essential hypertension Goiter HLD (hyperlipidemia) HTN (hypertension) Primary osteoarthritis of knees, bilateral T2DM (type 2 diabetes mellitus) Surgical History Hx of eye surgery History of knee replacement procedure of right knee History of cholecystectomy History of total hysterectomy History of appendectomy History of total knee arthroplasty (~12/22/18) Family History Father No problems noted. Mother No problems noted. Social History Household Members: Children Housing: Apartment Alcohol intake: never Patient Tobacco Use Status: Never used Tobacco e-Cigarette/Vaping Use: Never Used Second Hand Smoke Exposure: No Advance Directives Date on File: 12/16/22 service: No Current occupational status: disabled Cognitive needs: No Hearing needs: No Vision needs: No Physical Exam Vital Signs: Last Vital Signs Pulse 101 H 08/04/23 13:28 BP 136/68 08/04/23 13:28 BMI result Body Mass Index 30.1 Absence of Cushingoid features. Absence of acromegalic features. Neck exam reveals nl size thyroid about 15 gms. No thyroid nodules palpable. No carotid bruits present. Lungs CTA. Heart S1 S2, Reg R/R. No M/R/ G. Skin exam reveals absence of vitiligo or acanthosis nigricans. Abdominal exam reveals Soft NT/ND with NA BS. No organomegaly present. Neck Other: . Extrem Other: Visual exam of foot performed. No ulcerations or open lesions. No onchomycosis, no callouses.Pulses 2 + distally Sensation intact to monofilament exam. Vibratory sensation sensed is intact with 128 Hz tuning fork Results Reviewed Results Reviewed: Laboratory Last Values Glucose (Clinic) 109 mg/dL (60-115) 08/04/23 13:36 Assessment & Plan Assessment & Plan (1) T2DM (type 2 diabetes mellitus): Code(s): E11.9 - Type 2 diabetes mellitus without complications Qualifiers: Diabetes mellitus complication status: with hyperglycemia Diabetes mellitus senior living insulin use: with terminal operations manager use Qualified Code(s): E11.65 - Type 2 diabetes mellitus with hyperglycemia; Z79.4 - terminal operations manager (current) use of insulin Plan: This is a 88-year-old female with history of type 2 diabetes being treated with Ozempic and basal insulin with excellent glycemic control and known microvascular complications namely CKD. The plan is to continue the current treatment. At this point, patient returned to the care of her primary care provider and return back to endocrinology should the HbA1c deteriorate. I did make an appoint with the telehealth nurse educator as the patient is interested in pursuing a Sensor Orders: Referrals Diabetes Education Referral E11.9 - Type 2 diabetes mellitus without complications Coding Level of Care Code Est Pt Level 4 (53802) Diagnoses Type 2 diabetes mellitus with hyperglycemia, with long-term current use of insulin E11.65; Z79.4 Diabetes mellitus complication status: with hyperglycemia Diabetes mellitus terminal operations manager insulin use: with terminal operations manager use
[2023-08-04 13:28] VITALS: BP 136/68; PULSE 101; BMI 30.1
[2023-08-04 13:43] LABS: Glucose, Whole Blood 109 mg/dL (60-115)
== END 2023-08-04 13:57 | disposition home or self-care (01) ==
PROVIDERS: PCP Internal Medicine; Visit Provider Internal Medicine Endocrinology, Diabetes & Metabolism
DX: E11.9 Type 2 diabetes mellitus without complications (principal)
CPT/HCPCS: 99214

== ENCOUNTER → 2023-08-04 13:25 | Outpatient (BNVA) | payer MEDICARE, MEDICAID, SELFPAY | PROVIDERS: PCP Internal Medicine; Visit Provider Internal Medicine Endocrinology, Diabetes & Metabolism | DX: E11.65 Type 2 diabetes mellitus with hyperglycemia (principal); Z79.4 Long term (current) use of insulin | CPT/HCPCS: 82947; 83036; 99212 ==

== ENCOUNTER 2023-08-13 14:27 | Outpatient (AMB) | payer MEDICARE, MEDICAID, SELFPAY ==
--- NOTE | 2023-08-13 14:31 | MHC.OFFVIS ---
Intake Vital Signs 08/13/23 14:37 Height 5 ft 1 in BP 124/70 Blood Pressure Location Rt brachial Position Sitting Pulse 77 Pulse Source Pulse Oximeter Pulse Oximetry (%) 99 Oxygen Delivery Method Room Air Intake Visit Reasons: 3 mnts f/u appt for memory-Confirmed Intake Note: Patient presents for 3 month follow up memory. She had an MRi and labs but memory is getting worst and she's denying. Allergies aspirin Allergy (Intermediate, Verified 08/13/23 14:36) unknown Penicillins Allergy (Verified 08/13/23 14:36) Unknown metformin Adverse Reaction (Intermediate, Verified 08/13/23 14:36) diarrhea Medication List - Last Reconciled 08/13/23 by KIRAN Walsh blood sugar diagnostic (OneTouch Ultra Test strips) Use 1 test strip twice a day blood sugar diagnostic (FreeStyle Lite Strips) As directed blood-glucose meter As directed blood-glucose meter (FreeStyle [place] Lite kit) As directed cholecalciferol (vitamin D3) 25 mcg PO DAILY 90 days donepezil 5 mg PO BEDTIME 30 days lancets Use 1 lancet twice a day lancets (FreeStyle Lancets) As directed olmesartan 5 mg PO BID 90 days omeprazole 20 mg PO QAM 90 days pen needle, diabetic (BD Ultra-Fine Micro Pen Needle) USE DIRECTED semaglutide (Ozempic) 1 mg (0.75 mL) subcut QWEEK 30 days Tresiba FlexTouch U-100 (insulin degludec) 15 units (0.15 mL) subcut DAILY 30 days NS vitamin B complex (B Complex-Vitamin B12 tablet) 1 tab PO DAILY 30 days walker with seat [wheelchair As directed] HPI HPI Comments History of Present Illness Details 88-yr-old female presents for f/u visit, accompanied by her granddtr and dtr. Pt herself states that she is doing well. She has started Donepazil 5mg qhs- and is tolerating this well. However, pt's family is concerned that she is more forgetful. For instance, pt may misplace items and then accuse her family or someone of stealing them. She needs more assist w/ IADLs. She sometimes can hear voices or feel something crawling on her arms that are not real. Lab results were notable for elevated ESR/CRP, homocysteine and MMA level w/ low-norm B-12 and normal Folate, chronic elevated BUN/Creat. After review, pt was advised to start Vitamin B complex 06/26/23, MR/MR head/brain wo con IMPRESSION: 1. Chronic ischemic microangiopathy in the white matter of both cerebral hemispheres, similar in appearance to the previous study. No acute intracranial process. 2. Syjy-bj-hzuokate generalized diffuse parenchymal volume loss without hydrocephalus, stable in appearance. Last Resulted Lab Tests 12/23/22 05/01/23 05/15/23 11: 11: 13:00 WBC RBC Hgb Hct MCV MCH MCHC RDW Plt Count MPV Immature Gran % (A uto) Neut % (Auto) Lymph % (Auto) [place] % (Auto) Eos % (Auto) Baso % (Auto) Lymph # (Auto) [place] # (Auto) Eos # (Auto) Baso # (Auto) Abs Immat Gran (au to) Absolute Neuts (au to) Absolute Nucleated RBC Nucleated RBC % (a uto) ESR Sodium Potassium Chloride 111 H Carbon Dioxide 20 L Anion Gap 13 BUN 22 H Creatinine 1.86 H Estimated GFR 26 Random Glucose 74 Hgb A1c (Clinic) 11.1 H 6.3 H 6.2 H Calcium 9.7 D Total Bilirubin 0.2 AST 19 ALT 14 Alkaline Phosphata se 67 C-React Prot High Sens 4.4 H Total Protein 7.7 Albumin 3.8 Vitamin B12 464 Methylmalonic Acid 321 H Folate 9.4 Homocysteine 18.8 H TSH 0.59 LAMAR Screen negative T.pallidum Ab (EIA ) negative HIV 1&2 Ab/P24 Ag 4thGn negative 05/15/23 05/15/23 08/04/23 13:00 13:00 07:53 WBC 7.6 RBC 3.83 L Hgb 12.0 Hct 37.4 MCV 97.7 MCH 31.3 MCHC 32.1 RDW 13.3 Plt Count 163 D MPV 11.8 Immature Gran % (A uto) 0.3 Neut % (Auto) 57.6 Lymph % (Auto) 34.1 [place] % (Auto) 5.3 Eos % (Auto) 2.2 Baso % (Auto) 0.5 Lymph # (Auto) 2.6 [place] # (Auto) 0.4 Eos # (Auto) 0.2 Baso # (Auto) 0.0 Absolute Neuts (au to) 4.4 Absolute Nucleated RBC 0.000 Nucleated RBC % (a uto) 0.0 ESR 74 H Sodium 140 Potassium 4.4 PFSH Medical History Anemia in chronic kidney disease CKD (chronic kidney disease) stage 4, GFR 15-29 ml/min Diabetes mellitus Essential hypertension Goiter HLD (hyperlipidemia) HTN (hypertension) Primary osteoarthritis of knees, bilateral T2DM (type 2 diabetes mellitus) Surgical History Hx of eye surgery History of knee replacement procedure of right knee History of cholecystectomy History of total hysterectomy History of appendectomy History of total knee arthroplasty (~12/22/18) Family History Father No problems noted. Mother No problems noted. Social History Household Members: Children Housing: Apartment Alcohol intake: never Patient Tobacco Use Status: Never used Tobacco e-Cigarette/Vaping Use: Never Used Second Hand Smoke Exposure: No Advance Directives Date on File: 12/16/22 service: No Current occupational status: disabled Cognitive needs: No Hearing needs: No Vision needs: No Review of Systems Const All systems reviewed & are unremarkable except as noted in HPI and below Physical Exam Vital Signs: Last Vital Signs Pulse 77 08/13/23 14:37 BP 124/70 08/13/23 14:37 Pulse Ox 99 08/13/23 14:37 Oxygen Delivery Method Room Air 08/13/23 14:37 Const General: cooperative and no acute distress HEENT Head: Yes normocephalic Resp Effort & Inspection: normal respiratory effort and able to speak in complete sentences Neuro Other: A&O to person. Responding appopriately to simple questions. Some STM lapses. General: gait normal and CN's II-XI intact bilaterally Motor exam (neuro): 5/5 motor strength present throughout Psych Appearance: grossly normal Speech and movement: Clear speech present Affect: normal affect Attitude: cooperative Assessment & Plan Assessment & Plan (1) Cognitive impairment: Comment: Modified/limited MMSE- Time: Correct: April, Summer/Fall Incorrect: [place], Place: Correct: [place], [place] Incorrect: [place] Spell TOM in reverse: 08/29 after 4 attempts ODOMU, ODOMU, ODUNM, EDWINA Item identification- 2 3 word recall- 3/3 immediately 0/3 on 3 minute recall- did not recall what 3 words we spoke of- stated Tom, watch, pen Sentence- full sentence [place] drawing- poor Clock- Poor- Shakir face of clock and placed numbers w/ just slight difficulty- spacing just a bit off. However, pt draw hands of clock, as ? a separate hand-like shape, and 10 of 2, as 10-8 = 2 Code(s): R41.89 - Other symptoms and signs involving cognitive functions and awareness (2) Elevated erythrocyte sedimentation rate: Code(s): R70.0 - Elevated erythrocyte sedimentation rate (3) Elevated homocysteine: Code(s): R79.89 - Other specified abnormal findings of blood chemistry (4) Auditory hallucinations: Code(s): R44.0 - Auditory hallucinations (5) Tactile hallucinations: Code(s): R44.2 - Other hallucinations Plan Reviewed MR/MR head/brain wo results and imaging w/ pt- chronic ischemic microangiopathy in white matter of both cerebral hemispheres- stable. Utlb-bb-nsayoewo generalized diffuse parenchymal volume loss without hydrocephalus- stable. Pt advised to undergo neuro-psych eval- note that there is a prolonged waitlist at this time. In the meantime, pt advised to undergo FDG-PET scan to assess for frontal lobe vs alzheimers dementia process. Will recheck labs Continue vitamin B complex supplement. Increase Donepazil from 5mg qhs to 10mg qhs. Continue supportive care, 17/03 supervision. Follow-up in 3 months or sooner prn. Orders: Orders PET CT fusion whole body 08/13/23 R41.3 - Other amnesia, R41.89 - Other symptoms and signs involving cognitive functions and awareness, R44.0 - Auditory hallucinations, R44.2 - Other hallucinations, R70.0 - Elevated erythrocyte sedimentation rate, R79.89 - Other specified abnormal findings of blood chemistry Methylmalonic Acid 08/13/23 R41.89 - Other symptoms and signs involving cognitive functions and awareness, R70.0 - Elevated erythrocyte sedimentation rate, R79.89 - Other specified abnormal findings of blood chemistry Homocysteine 08/13/23 R41.89 - Other symptoms and signs involving cognitive functions and awareness, R70.0 - Elevated erythrocyte sedimentation rate, R79.89 - Other specified abnormal findings of blood chemistry Vitamin B12 and Folate 08/13/23 R41.89 - Other symptoms and signs involving cognitive functions and awareness, R70.0 - Elevated erythrocyte sedimentation rate, R79.89 - Other specified abnormal findings of blood chemistry CRP High Sensitivity 08/13/23 R41.89 - Other symptoms and signs involving cognitive functions and awareness, R70.0 - Elevated erythrocyte sedimentation rate, R79.89 - Other specified abnormal findings of blood chemistry Complete Blood Count Auto Diff 08/13/23 R41.89 - Other symptoms and signs involving cognitive functions and awareness, R70.0 - Elevated erythrocyte sedimentation rate, R79.89 - Other specified abnormal findings of blood chemistry Creatine Kinase Total 08/13/23 R41.89 - Other symptoms and signs involving cognitive functions and awareness, R70.0 - Elevated erythrocyte sedimentation rate, R79.89 - Other specified abnormal findings of blood chemistry Erythrocyte Sedimentation Rate 08/13/23 R41.89 - Other symptoms and signs involving cognitive functions and awareness, R70.0 - Elevated erythrocyte sedimentation rate, R79.89 - Other specified abnormal findings of blood chemistry Medications: New donepezil 10 mg PO BEDTIME 30 days 30 tabs 3RF Discontinued donepezil Discontinued Reason: Doctor's Order 5 mg PO BEDTIME 30 days 30 tabs 1RF Coding Level of Care Code Est Pt Level 4 (93809) Diagnoses Cognitive impairment R41.89 Elevated erythrocyte sedimentation rate R70.0 Elevated homocysteine R79.89 Auditory hallucinations R44.0 Tactile hallucinations R44.2
[2023-08-13 14:37] VITALS: BP 124/70; PULSE 77; O2SAT 99
== END 2023-08-13 15:33 | disposition home or self-care (01) ==
PROVIDERS: PCP Internal Medicine; Visit Provider Nurse Practitioner Family
DX: R41.89 Other symptoms and signs involving cognitive functions and awareness (principal); R70.0 Elevated erythrocyte sedimentation rate; R79.89 Other specified abnormal findings of blood chemistry; R44.0 Auditory hallucinations; R44.2 Other hallucinations
CPT/HCPCS: 99214

== ENCOUNTER → 2023-08-13 14:27 | Outpatient (BNVA) | payer MEDICARE, MEDICAID, SELFPAY | PROVIDERS: PCP Internal Medicine; Visit Provider Nurse Practitioner Family | DX: R41.89 Other symptoms and signs involving cognitive functions and awareness (principal); R70.0 Elevated erythrocyte sedimentation rate; R79.89 Other specified abnormal findings of blood chemistry; R44.0 Auditory hallucinations; R44.2 Other hallucinations | CPT/HCPCS: 99212 ==

== ENCOUNTER 2023-11-17 14:53 | Outpatient (AMB) | payer MEDICARE, MEDICAID, SELFPAY ==
[2023-11-17 14:59] VITALS: BP 132/70; BMI 29.7
--- NOTE | 2023-11-17 14:59 | A.OFFPC_ITS ---
Vital Signs 11/17/23 14:59 Height 5 ft 1 in Weight 157 lb BMI 29.7 BP 132/70 Blood Pressure Location Lt brachial Position Sitting Intake Visit Reasons: dm Intake Note: Patient here for a follow up DM, behavioral changes per granddaughter Nutrient Management Specialist Required: No Accompanied by: Grand Child Allergies aspirin Allergy (Intermediate, Verified 11/17/23 15:17) unknown Penicillins Allergy (Verified 11/17/23 15:17) Unknown metformin Adverse Reaction (Intermediate, Verified 11/17/23 15:17) diarrhea Medication List - Last Reconciled 11/17/23 by Lamar Wick MD blood sugar diagnostic (OneTouch Ultra Test strips) Use 1 test strip twice a day blood sugar diagnostic (FreeStyle Lite Strips) As directed blood-glucose meter As directed blood-glucose meter (FreeStyle [place] Lite kit) As directed cholecalciferol (vitamin D3) 25 mcg PO DAILY 90 days donepezil 10 mg PO BEDTIME 30 days lancets Use 1 lancet twice a day lancets (FreeStyle Lancets) As directed olmesartan 5 mg PO BID 90 days omeprazole 20 mg PO QAM 90 days pen needle, diabetic (BD Ultra-Fine Micro Pen Needle) USE DIRECTED semaglutide (Ozempic) 1 mg (0.75 mL) subcut QWEEK 30 days Tresiba FlexTouch U-100 (insulin degludec) 15 units (0.15 mL) subcut DAILY 30 days NS vitamin B complex (B Complex-Vitamin B12 tablet) 1 tab PO DAILY 30 days walker with seat [wheelchair As directed] Tobacco use date assessed: 11/17/23 Fall risk assessment: No Falls in past year Last assessed Fall Risk: 11/17/23 Dental Screening Dental Screen Date: 11/17/23 Did you have a dental visit in the last 12 months?: No Did you have a dental problem in the last 6 months where you did not have access to dental care?: No Was dental information given to patient?: Patient declined HPI HPI Comments History of Present Illness Details This is an 88-year-old female with diabetes mellitus type 2 on long- term current use of insulin, hypertension, hyperlipidemia, chronic kidney disease stage 4 and 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 A1c within goal. Blood pressure stable. Lipid panel and CMP were ordered. She comes with her granddaughter which is 1 of her caretakers. Granddaughter said that she is being more aggressive and has auditory and tactile hallucinations. Patient does not want to admit her neurological decline. She is awake, alert and oriented to person and place but not to time. 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 Her CKD is follow by Nephrology. Aware that has to avoid NSAIDs. Also has severe knee osteoarthritis does not want to use a cane. No chest pain or shortness of breath. GERD stable with PPIs. [facility] [place] Medical History (Updated 11/17/23 @ 16:24 by Lamar Wick MD) Goiter HLD (hyperlipidemia) HTN (hypertension) T2DM (type 2 diabetes mellitus) Anemia in chronic kidney disease CKD (chronic kidney disease) stage 4, GFR 15-29 ml/min Diabetes mellitus Essential hypertension Primary osteoarthritis of knees, bilateral Surgical History Hx of eye surgery History of knee replacement procedure of right knee History of cholecystectomy History of total hysterectomy History of appendectomy History of total knee arthroplasty (~12/22/18) Family History Father No problems noted. Mother No problems noted. Social History Household Members: Children Housing: Apartment Alcohol intake: never Patient Tobacco Use Status: Never used Tobacco e-Cigarette/Vaping Use: Never Used Second Hand Smoke Exposure: No Advance Directives Date on File: 12/16/22 service: No Current occupational status: disabled Cognitive needs: No Hearing needs: No Vision needs: No Questionnaire PHQ-9 Over the last 2 weeks, how often have you been bothered by any of the following problems? 1. Little interest or pleasure in doing things: not at all 2. Feeling down, depressed, or hopeless: not at all 3. Trouble falling or staying asleep, or sleeping too much: nearly every day 4. Feeling tired or having little energy: not at all 5. Poor appetite or overeating: not at all 6. Feeling bad about yourself - or that you are a failure or have let yourself or your family down: not at all 7. Trouble concentrating on things, such as reading the newspaper or watching television: not at all 8. Moving or speaking so slowly that other people could have noticed. Or the opposite - being so fidgety or restless that you have been moving around a lot more than usual: not at all 9. Thoughts that you would be better off or of hurting yourself in some way: not at all Total score: 3 Depression Screening Interpretation: Negative Depression Screening Done: Yes 16017 - PHQ-9 Billing: Yes Source: Developed by Drs. Ramon Coreas, Allie Toscano, Guy Solis and colleagues, with an educational valentin from [employer]. Thrive Questionnaire Date Thrive assessed: 11/17/23 I am a: Patient What is your living situation today?: I have a steady place to live Within the past 12 months, did the food you bought not last and you didn't have the money to get more?: Never true Within the past 12 months, did you worry whether your food would run out before you got money to buy more?: Never true Do you have trouble paying for medicines?: No Do you have trouble getting transportation to medical appointments?: No Do you have trouble paying your heating and electricity bill?: No Do you have trouble taking care of your child, family member or friend?: No Do you have trouble with day-to-day activities such as bathing, preparing meals, shopping, managing finances, etc.?: No Are you currently unemployed and looking for a job?: No Are you interested in more education?: No Please select the resources that you would like help with: None Currently or been in a relationship where the following occur: no concerns reported THRIVE Score: 0 AUDIT C Alcohol Use Questionnaire (AUDIT-C) 1. How often do you have a drink containing alcohol?: Never Total Score: 0 Score Reviewed/Action Taken: No MERRITT-7 AMB Questionnaire MERRITT-7 Date MERRITT - 7 assessed: 11/17/23 Feeling nervous, anxious, or on edge: 0 = Not at all Not being able to stop or control worryin = Not at all Worrying too much about different things: 0 = Not at all Trouble relaxin = Not at all Being so restless that it is hard to sit still: 0 = Not at all Becoming easily annoyed or irritable: 0 = Not at all Feeling afraid as if something awful might happen: 0 = Not at all Total MERRITT-7 score (0-4 normal; 5-9 mild; 10-14 moderate; 15-21 severe): 0 Source: Developed by Drs. Ramon Coreas, Allie Toscano, Guy Solis and colleagues, with an educational valentin from [employer]. MERRITT-7 Assessment Billing MERRITT-7 Assessment Tool: MERRITT-7 Assessment 67152 Review of Systems Const All systems reviewed & are unremarkable except as noted in HPI and below Eyes Reports no additional complaints, Denies change in vision and Denies other visual disturbances Card Denies chest pain at rest, Denies chest pain with activity, Denies edema, Denies irregular heart rhythm, Denies claudication, Denies dyspnea, Denies dyspnea on exertion, Denies orthopnea, Denies paroxysmal nocturnal dyspnea and Denies slow heart rate Resp Denies cough, Denies dyspnea and Denies dyspnea on exertion GI Denies abdominal pain, Denies change in bowel habits, Denies excessive flatus, Denies nausea and Denies vomiting Denies urinary incontinence, Denies urinary hesitancy and Denies urinary urgency Musc Denies abnormal gait, Denies atrophy, Denies deformity and Denies limited range of motion Skin/Breast Denies bleeding lesions, Denies changing lesions and Denies rash Neuro Denies abnormal gait, Reports confusion, Denies lack of coordination and Reports memory loss Psych Reports confusion and Reports memory loss Physical exam (Primary Care) Vital Signs: Last Vital Signs BP 132/70 11/17/23 14:59 BMI result Body Mass Index 29.7 Tobacco/Smoking Status: Tobacco use Status Tobacco use date assessed 11/17/23 11/17/23 15:07 Patient Tobacco Use Status Never used Tobacco 11/17/23 15:07 e-Cigarette/Vaping Use Never Used 11/17/23 15:07 PHQ-9: PHQ-9 Score PHQ-9: Total score 3 11/17/23 15:22 Depression Screening Interpretation: Negative Thrive Assessment: Date of Thrive Assessment Date Thrive assessed 11/17/23 11/17/23 15:13 Currently or been in a relationship where the following occur: no concerns reported Const General: confusion Orientation/consciousness: oriented to person, oriented to place and confusion Resp Effort & Inspection: normal respiratory effort Auscultation: clear to auscultation bilaterally Cardio Jugular venous distension: no JVD Rate: regular rate Rhythm: regular rhythm Heart sounds: S1 normal heart sound present and S2 normal heart sound present Neuro General: oriented to person, oriented to place and confusion Results AMB Hemoglobin A1c AMB Hemoglobin A1c 6.3 % Last Edit by RETA Quintero on 11/17/23 15:1 1 Results Reviewed Results Reviewed: Laboratory Last Values Hgb A1c (Clinic) 6.3 % (4.0-6.0) H 11/17/23 14:59 Assessment and Plan Assessment & Plan (1) Diabetes mellitus: Code(s): E11.9 - Type 2 diabetes mellitus without complications Qualifiers: Diabetes mellitus type: type 2 Diabetes mellitus snf insulin use: with snf use Diabetes mellitus complication status: with hyperglycemia Qualified Code(s): E11.65 - Type 2 diabetes mellitus with hyperglycemia; Z79.4 - intermediate card tender (current) use of insulin Plan: Continue Ozempic and Tresiba. A1c goal is equal or less than 7%. (2) Essential hypertension: Code(s): I10 - Essential (primary) hypertension Plan: Continue olmesartan. Blood pressure goal is equal or less than 130/80. (3) CKD (chronic kidney disease) stage 4, GFR 15-29 ml/min: Code(s): N18.4 - Chronic kidney disease, stage 4 (severe) Plan: Avoid NSAIDs. Keep blood pressure less than 130/80. Follow-up with nephrology. (4) Alzheimer's dementia with behavioral disturbance: Code(s): G30.9 - Alzheimer's disease, unspecified; F02.818 - Dementia in other diseases classified elsewhere, unspecified severity, with other behavioral disturbance Plan: Continue donepezil. Follow-up with Neurology. Continue family support. Orders: Orders Complete Blood Count Auto Diff Today D63.1 - Anemia in chronic kidney disease, D64.9 - Anemia, unspecified, N18.4 - Chronic kidney disease, stage 4 (severe) Vitamin B12 and Folate Today E53.8 - Deficiency of other specified B group vitamins, R41.3 - Other amnesia AMB Hemoglobin A1c Today E11.9 - Type 2 diabetes mellitus without complications Lipid Panel Today E78.5 - Hyperlipidemia, unspecified Microalbumin, Random (w Creat) Today E11.9 - Type 2 diabetes mellitus without complications Vitamin D 25-OH Total Today E55.9 - Vitamin D deficiency, unspecified Thyroid Stimulating Hormone Today E04.9 - Nontoxic goiter, unspecified Comprehensive [place]. Panel Fast Today E11.65 - Type 2 diabetes mellitus with hyperglycemia, Z79.4 - FCI (current) use of insulin IRON PROFILE Today D63.1 - Anemia in chronic kidney disease, D64.9 - Anemia, unspecified, N18.4 - Chronic kidney disease, stage 4 (severe) Coding Level of Care Code Est Pt Level 4 (40063) Diagnoses Type 2 diabetes mellitus with hyperglycemia, with long-term current use of insulin E11.65; Z79.4 Diabetes mellitus type: type 2 Diabetes mellitus continuous churn buttermaker insulin use: with continuous churn buttermaker use Diabetes mellitus complication status: with hyperglycemia Essential hypertension I10 CKD (chronic kidney disease) stage 4, GFR 15-29 ml/min N18.4 Alzheimer's dementia with behavioral disturbance G30.9; F02.818 Additional Codes MERRITT-7 Assessment Billing - MERRITT-7 Assessment Tool: MERRITT-7 Assessment 71689 ([id number]) Time Spent (min) 25
== END 2023-11-17 15:31 | disposition home or self-care (01) ==
PROVIDERS: PCP Internal Medicine; Visit Provider Internal Medicine
DX: E11.65 Type 2 diabetes mellitus with hyperglycemia (principal); Z79.4 Long term (current) use of insulin; I12.9 Hypertensive chronic kidney disease with stage 1 through stage 4 chronic kidney disease, or unspecified chronic kidney disease; N18.4 Chronic kidney disease, stage 4 (severe); G30.9 Alzheimer's disease, unspecified; F02.818 Dementia in other diseases classified elsewhere, unspecified severity, with other behavioral disturbance
CPT/HCPCS: 83036; 99214

== ENCOUNTER 2024-02-24 11:53 | Outpatient (AMB) | payer MEDICARE, MEDICAID, SELFPAY ==
--- NOTE | 2024-02-24 12:12 | MHC.OFFVIS ---
Vital Signs 02/24/24 12:14 Height 5 ft 1 in Weight 155 lb BMI 29.3 BP 122/70 Blood Pressure Location Rt brachial Position Sitting Pulse 70 Pulse Source Pulse Oximeter Pulse Oximetry (%) 98 Intake Visit Reasons: 3 mo -Memory-CONF Intake Note: Patient presents for 3 month follow up. patient says she's having mild memory loss. Allergies aspirin Allergy (Intermediate, Verified 02/24/24 12:15) unknown Penicillins Allergy (Verified 02/24/24 12:15) Unknown metformin Adverse Reaction (Intermediate, Verified 02/24/24 12:15) diarrhea Medication List - Last Reconciled 02/24/24 by KIRAN Walsh blood sugar diagnostic (OneTouch Ultra Test strips) Use 1 test strip twice a day blood sugar diagnostic (FreeStyle Lite Strips) As directed blood-glucose meter As directed blood-glucose meter (FreeStyle [place] Lite kit) As directed cholecalciferol (vitamin D3) 25 mcg PO DAILY 90 days donepezil 10 mg PO BEDTIME 30 days lancets Use 1 lancet twice a day lancets (FreeStyle Lancets) As directed olmesartan 5 mg PO BID 90 days omeprazole 20 mg PO QAM 90 days pen needle, diabetic (BD Ultra-Fine Micro Pen Needle) USE DIRECTED semaglutide (Ozempic) 1 mg (0.75 mL) subcut QWEEK 30 days Tresiba FlexTouch U-100 (insulin degludec) 15 units (0.15 mL) subcut DAILY 30 days NS vitamin B complex 1 tab PO DAILY 30 days walker with seat [wheelchair As directed] HPI Comments Details: 88-yr-old female presents for f/u visit, accompanied by her grandtr. Pt denies any significant interval medical changes. Pt continues to have cognitive difficulties, however she is doing a bit better since increasing the Donepazil. Pt may still forget things, misplace things, or repeat herself. Behaviors are better. She is no longer accusing her family of stealing her misplaced things. She is now going to a part-time day program, which she is enjoying- Plays games, takes walks. She takes a bus to and from. Denies hallucinations. She is eating well, drinking well. She is sleeping well since starting Melatonin. Takes a nap after the day program. She had a fall last week- slipped on a scatter rug by her bed at night. No injuries. Family removed the rug. Granddtr notes that pt may wake up at night and want to do things w/ clothes- when she has not taken the melatonin. [facility] Medical History Goiter HLD (hyperlipidemia) HTN (hypertension) T2DM (type 2 diabetes mellitus) Anemia in chronic kidney disease CKD (chronic kidney disease) stage 4, GFR 15-29 ml/min Diabetes mellitus Essential hypertension Primary osteoarthritis of knees, bilateral Surgical History Hx of eye surgery History of knee replacement procedure of right knee History of cholecystectomy History of total hysterectomy History of appendectomy History of total knee arthroplasty (~12/22/18) Family History Father No problems noted. Mother No problems noted. Social History Household Members: Children Housing: Apartment Alcohol intake: never Patient Tobacco Use Status: Never used Tobacco e-Cigarette/Vaping Use: Never Used Second Hand Smoke Exposure: No Advance Directives Date on File: 12/16/22 service: No Current occupational status: disabled Cognitive needs: No Hearing needs: No Vision needs: No Review of Systems Const All systems reviewed & are unremarkable except as noted in HPI and below Physical Exam Vital Signs: Last Vital Signs Pulse 70 02/24/24 12:14 BP 122/70 02/24/24 12:14 Pulse Ox 98 02/24/24 12:14 BMI result Body Mass Index 29.3 Const General: cooperative and no acute distress HEENT Head: Yes normocephalic Resp Effort & Inspection: normal respiratory effort and able to speak in complete sentences Neuro Other: Alert, oriented to person. Responds appropriately w/ simple responses. STM lapses. Pleasant affect. General: gait normal and CN's II-XI intact bilaterally Motor exam (neuro): 5/5 motor strength present throughout Psych Appearance: grossly normal Mental Status: mental status grossly normal Affect: normal affect Attitude: cooperative Assessment & Plan Assessment & Plan (1) Cognitive impairment: Comment: Modified/limited MMSE- Time: Correct: April, Summer/Fall Incorrect: Sam, dtae, Place: Correct: [place], [place] Incorrect: [place] Spell TOM in reverse: 08/29 after 4 attempts ODOMU, ODOMU, ODUNM, EDWINA Item identification- 2 3 word recall- 3/3 immediately 0/3 on 3 minute recall- did not recall what 3 words we spoke of- stated Tom, watch, pen Sentence- full sentence [place] drawing- poor Clock- Poor- Shakir face of clock and placed numbers w/ just slight difficulty- spacing just a bit off. However, pt draw hands of clock, as ? a separate hand-like shape, and 10 of 2, as 10-8 = 2 Code(s): R41.89 - Other symptoms and signs involving cognitive functions and awareness Category: Medical (2) Alzheimer's dementia with behavioral disturbance: Code(s): G30.9 - Alzheimer's disease, unspecified; F02.818 - Dementia in other diseases classified elsewhere, unspecified severity, with other behavioral disturbance Category: Medical (3) Fall: Code(s): W19.XXXA - Unspecified fall, initial encounter Category: Medical Plan Start Memantine ER 7mg qd. Pt advised to undergo PET brain FDG- to assess for AD vs Frontal temporal dementia. Reviewed strategies to reduce fall risk. Continue day program. Pt continues to require supportive care. Orders: Orders PET Brain FDG 02/24/24 G30.9 - Alzheimer's disease, unspecified, F02.818 - Dementia in other diseases classified elsewhere, unspecified severity, with other behavioral disturbance, R41.89 - Other symptoms and signs involving cognitive functions and awareness, W19.XXXA - Unspecified fall, initial encounter Medications: New memantine 7 mg PO DAILY 30 ea 3RF 30 days Coding Level of Care Code Est Pt Level 4 (19691) Diagnoses Cognitive impairment R41.89 Alzheimer's dementia with behavioral disturbance G30.9; F02.818 Fall W19.XXXA
[2024-02-24 12:14] VITALS: BP 122/70; PULSE 70; O2SAT 98; BMI 29.3
== END 2024-02-24 13:01 | disposition home or self-care (01) ==
PROVIDERS: PCP Internal Medicine; Visit Provider Nurse Practitioner Family
DX: R41.89 Other symptoms and signs involving cognitive functions and awareness (principal); G30.9 Alzheimer's disease, unspecified; F02.818 Dementia in other diseases classified elsewhere, unspecified severity, with other behavioral disturbance; W19.XXXA Unspecified fall, initial encounter
CPT/HCPCS: 99214

== ENCOUNTER → 2024-02-24 11:53 | Outpatient (BNVA) | payer MEDICARE, MEDICAID, SELFPAY | PROVIDERS: PCP Internal Medicine; Visit Provider Nurse Practitioner Family | DX: R41.89 Other symptoms and signs involving cognitive functions and awareness (principal); G30.9 Alzheimer's disease, unspecified; F02.818 Dementia in other diseases classified elsewhere, unspecified severity, with other behavioral disturbance; Z91.81 History of falling | CPT/HCPCS: 99212 ==

== ENCOUNTER 2024-04-19 15:26 | Outpatient (AMB) | payer MEDICARE, MEDICAID, SELFPAY ==
--- NOTE | 2024-04-19 15:30 | A.OFFPC_ITS ---
Vital Signs 04/19/24 15:31 Height 5 ft 1 in Weight 151 lb BMI 28.5 BP 132/70 Blood Pressure Location Lt brachial Position Sitting Intake Visit Reasons: dm Intake Note: Patient here for a follow up dm, c/o abdominal pain, diarrhea Pipe Blanks Cut Off Saw Operator Required: No Accompanied by: Grand Child Allergies aspirin Allergy (Intermediate, Verified 04/19/24 15:51) unknown Penicillins Allergy (Verified 04/19/24 15:51) Unknown metformin Adverse Reaction (Intermediate, Verified 04/19/24 15:51) diarrhea Medication List - Last Reconciled 04/19/24 by Lamar Wick MD blood sugar diagnostic (OneTouch Ultra Test strips) Use 1 test strip twice a day blood sugar diagnostic (FreeStyle Lite Strips) As directed blood-glucose meter As directed blood-glucose meter (FreeStyle [place] Lite kit) As directed cholecalciferol (vitamin D3) 25 mcg PO DAILY 90 days donepezil 10 mg PO BEDTIME 30 days lancets Use 1 lancet twice a day lancets (FreeStyle Lancets) As directed memantine 7 mg PO DAILY 30 days olmesartan 5 mg PO BID 90 days omeprazole 20 mg PO QAM 90 days pen needle, diabetic (BD Ultra-Fine Micro Pen Needle) USE DIRECTED semaglutide (Ozempic) 1 mg (0.75 mL) subcut QWEEK 30 days Tresiba FlexTouch U-100 (insulin degludec) 15 units (0.15 mL) subcut DAILY 30 days NS vitamin B complex 1 tab PO DAILY 30 days walker with seat [wheelchair As directed] Tobacco use date assessed: 11/17/23 Fall risk assessment: No Falls in past year Last assessed Fall Risk: 04/19/24 Dental Screening Dental Screen Date: 11/17/23 HPI HPI Comments History of Present Illness Details This is an 88-year-old female with diabetes mellitus type 2, hypertension, chronic kidney disease stage IV and Alzheimer's dementia that comes today accompanied by granddaughter which is the frame assembler complaining of nausea, vomiting and abdominal pain that started 3 days ago. She said she ate a burger and after that she started with this symptoms. No fever. She also started memantine on Friday. I advised to hold memantine. Will give her ondansetron for the nausea. Will also change omeprazole to pantoprazole. A1c within goal. Blood pressure stable. Last GFR was 26 and still follows with Nephrology for chronic kidney disease. Alzheimer's disease is follow by Neurology which had her on donepezil and recently added memantine. [facility] Medical History Goiter HLD (hyperlipidemia) HTN (hypertension) T2DM (type 2 diabetes mellitus) Anemia in chronic kidney disease CKD (chronic kidney disease) stage 4, GFR 15-29 ml/min Diabetes mellitus Essential hypertension Primary osteoarthritis of knees, bilateral Surgical History Hx of eye surgery History of knee replacement procedure of right knee History of cholecystectomy History of total hysterectomy History of appendectomy History of total knee arthroplasty (~12/22/18) Family History Father No problems noted. Mother No problems noted. Social History Household Members: Children Housing: Apartment Alcohol intake: never Patient Tobacco Use Status: Never used Tobacco e-Cigarette/Vaping Use: Never Used Second Hand Smoke Exposure: No Advance Directives Date on File: 12/16/22 service: No Current occupational status: disabled Cognitive needs: No Hearing needs: No Vision needs: No Questionnaire Thrive Questionnaire Date Thrive assessed: 11/17/23 MERRITT-7 AMB Questionnaire MERRITT-7 Date MERRITT - 7 assessed: 11/17/23 Source: Developed by Drs. Ramon Coreas, Allie Toscano, Guy Solis and colleagues, with an educational valentin from [employer]. Review of Systems Const All systems reviewed & are unremarkable except as noted in HPI and below ENT Denies change in voice, Denies nasal discharge and Denies sinus pain Card Denies chest pain at rest, Denies chest pain with activity, Denies edema, Denies irregular heart rhythm, Denies claudication, Denies dyspnea, Denies dyspnea on exertion, Denies orthopnea, Denies paroxysmal nocturnal dyspnea and Denies slow heart rate Resp Denies cough, Denies dyspnea and Denies dyspnea on exertion GI Denies abdominal pain, Denies change in bowel habits, Denies excessive flatus, Reports nausea and Reports vomiting Denies urinary incontinence, Denies urinary hesitancy and Denies urinary urgency Musc Denies atrophy, Denies deformity and Denies limited range of motion Physical exam (Primary Care) Vital Signs: Last Vital Signs BP 132/70 04/19/24 15:31 BMI result Body Mass Index 28.5 Tobacco/Smoking Status: Tobacco use Status Tobacco use date assessed 11/17/23 04/19/24 15:36 Patient Tobacco Use Status Never used Tobacco 04/19/24 15:36 e-Cigarette/Vaping Use Never Used 04/19/24 15:36 Thrive Assessment: Date of Thrive Assessment Date Thrive assessed 11/17/23 04/19/24 15:36 Resp Effort & Inspection: normal respiratory effort Auscultation: clear to auscultation bilaterally Cardio Jugular venous distension: no JVD Rate: regular rate Rhythm: regular rhythm Heart sounds: S1 normal heart sound present and S2 normal heart sound present Extrem General: Yes full ROM Results AMB Hemoglobin A1c AMB Hemoglobin A1c 6.9 % Last Edit by RETA Quintero on 04/19/24 15:5 4 Results Reviewed Results Reviewed: Laboratory Last Values Hgb A1c (Clinic) 6.9 % (4.0-6.0) H 04/19/24 15:53 Assessment and Plan Assessment & Plan (1) CKD (chronic kidney disease) stage 4, GFR 15-29 ml/min: Code(s): N18.4 - Chronic kidney disease, stage 4 (severe) Plan: Avoid NSAIDs. Keep blood pressure less than 130/80. Follow-up with nephrology. (2) Alzheimer's dementia with behavioral disturbance: Code(s): G30.9 - Alzheimer's disease, unspecified; F02.818 - Dementia in other diseases classified elsewhere, unspecified severity, with other behavioral disturbance Plan: Continue donepezil. Home memantine. Follow-up with Neurology. (3) Essential hypertension: Code(s): I10 - Essential (primary) hypertension Plan: Continue olmesartan. Blood pressure goal is equal or less than 130/80. (4) Diabetes mellitus: Code(s): E11.9 - Type 2 diabetes mellitus without complications Qualifiers: Diabetes mellitus type: type 2 Diabetes mellitus mcfp insulin use: with mcfp use Diabetes mellitus complication status: with hyperglycemia Qualified Code(s): E11.65 - Type 2 diabetes mellitus with hyperglycemia; Z79.4 - penitentiary (current) use of insulin Plan: Continue insulin and Ozempic. A1c goal is equal or less than 7%. Orders: Orders AMB Hemoglobin A1c Today E11.65 - Type 2 diabetes mellitus with hyperglycemia, Z79.4 - penitentiary (current) use of insulin Microalbumin, Random (w Creat) 4 Months E11.9 - Type 2 diabetes mellitus without complications Vitamin D 25-OH Total 4 Months E55.9 - Vitamin D deficiency, unspecified Comprehensive [place]. Panel Fast 4 Months E11.65 - Type 2 diabetes mellitus with hyperglycemia, Z79.4 - exterminator (current) use of insulin Lipid Panel 4 Months E78.5 - Hyperlipidemia, unspecified Medications: New ondansetron 8 mg PO Q12H 5 days PRN 10 tabs 0RF nausea and vomiting pantoprazole 40 mg PO DAILY 90 days 90 tabs 1RF Discontinued omeprazole Discontinued Reason: Patient Completed Course 20 mg PO QAM 90 days 90 caps 1RF Coding Level of Care Code Est Pt Level 4 (39393) Complex EM visit Add On G2211 Diagnoses CKD (chronic kidney disease) stage 4, GFR 15-29 ml/min N18.4 Alzheimer's dementia with behavioral disturbance G30.9; F02.818 Essential hypertension I10 Type 2 diabetes mellitus with hyperglycemia, with long-term current use of insulin E11.65; Z79.4 Diabetes mellitus type: type 2 Diabetes mellitus termite treater insulin use: with mcfp use Diabetes mellitus complication status: with hyperglycemia Time Spent (min) 25
[2024-04-19 15:31] VITALS: BP 132/70; BMI 28.5
== END 2024-04-19 16:03 | disposition home or self-care (01) ==
PROVIDERS: PCP Internal Medicine; Visit Provider Internal Medicine
DX: I12.9 Hypertensive chronic kidney disease with stage 1 through stage 4 chronic kidney disease, or unspecified chronic kidney disease (principal); N18.4 Chronic kidney disease, stage 4 (severe); E11.65 Type 2 diabetes mellitus with hyperglycemia; G30.9 Alzheimer's disease, unspecified; F02.818 Dementia in other diseases classified elsewhere, unspecified severity, with other behavioral disturbance; Z79.4 Long term (current) use of insulin
CPT/HCPCS: 83036; 99214; G2211

== ENCOUNTER 2024-12-20 12:45 | Outpatient (AMB) | payer OTHER, SELFPAY ==
--- NOTE | 2024-12-20 12:49 | AM.OFFVISMDC ---
Intake Vital Signs 12/20/24 12:50 Height 5 ft 1 in Weight 151 lb BMI 28.5 BP 118/76 Blood Pressure Location Lt brachial Position Sitting Intake Visit Reasons: AWV Intake Note: Patient here for an annual wellness visit Home Mortgage Disclosure Act Specialist Required: No Accompanied by: Grand Child Allergies aspirin Allergy (Intermediate, Verified 12/20/24 13:09) unknown Penicillins Allergy (Verified 12/20/24 13:09) Unknown metformin Adverse Reaction (Intermediate, Verified 12/20/24 13:09) diarrhea Medication List - Last Reconciled 12/20/24 by aLmar Wick MD blood sugar diagnostic (OneTouch Ultra Test strips) Use 1 test strip twice a day blood sugar diagnostic (FreeStyle Lite Strips) As directed blood-glucose meter As directed blood-glucose meter (FreeStyle [place] Lite kit) As directed cholecalciferol (vitamin D3) 25 mcg PO DAILY 90 days donepezil 10 mg PO BEDTIME 30 days flash glucose scanning reader (FreeStyle Florentino 14 Day [place]) As directed flash glucose sensor (FreeStyle Florentino 14 Day Sensor kit) As directed guaifenesin ER (Mucinex) 600 mg PO BID 5 days lancets Use 1 lancet twice a day lancets (FreeStyle Lancets) As directed memantine 7 mg PO DAILY 30 days olmesartan 5 mg PO BID 90 days ondansetron 8 mg PO Q12H PRN 5 days pantoprazole 40 mg PO DAILY 90 days pen needle, diabetic USE DIRECTED semaglutide (Ozempic) 1 mg (0.75 mL) subcut QWEEK 30 days Tresiba FlexTouch U-100 (insulin degludec) 15 units (0.15 mL) subcut DAILY 30 days NS underpads (Bed Underpads) Use 6 pads once a day vitamin B complex 1 tab PO DAILY 30 days walker with seat [wheelchair As directed] [wipes Use 6 wipes per day] HPI HPI Comments History of Present Illness Details The patient is an 89-year-old female presenting for a Medicare annual wellness exam. She has experienced uncontrolled blood sugar levels related to type 2 diabetes management, recorded at 7.4% A1c, with acute spikes requiring intervention. Her hypertension is managed with Olmesartan, though medication access issues have been noted. Cognitive assessment highlights memory and orientation challenges. Depression and a historic pattern of falls complicate her mobility and general health. The discussion includes medication allergies and discontinuation of Memantine due to negative reactions. The patient's familial dementia history, particularly from her father, is noted alongside her medication regimen adjustments, including vitamin supplements. - Up-to-date vaccinations, including Pneumonia and Tetanus vaccines. - Regular monitoring of blood pressure and glucose levels, with recent A1c at 7.4%. - Memory assessment attempted through informal questioning. - Previous MRI of the head undertaken as part of cognitive decline management. [facility] Medical History (Updated 12/20/24 @ 14:11 by Lamar Wick MD) Goiter HLD (hyperlipidemia) HTN (hypertension) T2DM (type 2 diabetes mellitus) Anemia in chronic kidney disease CKD (chronic kidney disease) stage 4, GFR 15-29 ml/min Diabetes mellitus Essential hypertension Primary osteoarthritis of knees, bilateral Surgical History Hx of eye surgery History of knee replacement procedure of right knee History of cholecystectomy History of total hysterectomy History of appendectomy History of total knee arthroplasty (~12/22/18) Family History (Updated 12/20/24 @ 13:17 by Lamar Wick MD) Father Dementia Mother No problems noted. Social History Household Members: Children Housing: Apartment Alcohol intake: never Patient Tobacco Use Status: Never used Tobacco e-Cigarette/Vaping Use: Never Used Second Hand Smoke Exposure: No Advance Directives Date on File: 12/16/22 service: No Current occupational status: disabled Cognitive needs: No Hearing needs: No Vision needs: No Questionnaire Medicare Wellness Checkup What is your age?: 80 or older What gender do you identify with?: female During the past 4 weeks, how much have you been bothered by emotional problems such as feeling anxious, depressed, irritable, sad or downhearted, and blue?: not at all During the past 4 weeks, has your physical & emotional health limited your social activities with family, friends, neighbors, or groups?: slightly During the past 4 weeks, how much bodily pain have you generally had?: moderate pain During the past 4 weeks, was someone available to help you if you needed & wanted help?: yes, quite a bit During the past 4 weeks, what was the hardest physical activity you could do for at least 2 minutes?: very light Can you get to places out of walking distance without help? (For eg., can you travel alone on buses, taxis or drive your car?): No Can you go shopping for groceries or clothes without someone's help?: No Can you prepare your own meals?: No Can you do your housework without help?: No Because of any health problems, do you need the help of another person with your personal care needs such as eating, bathing, dressing or getting around the house?: Yes Can you handle your own money without help?: Yes During the past 4 weeks, how would you rate your health in general?: fair During the past 4 weeks how have things been going for you?: pretty well Are you having difficulties driving your car?: not applicable, I don't use a car Do you always fasten your seat belt when you are in a car?: yes, usually During past 4 weeks, have you been bothered by the following: never: Sexual problems?, Teeth or denture problems? and Problems using the telephone?, seldom: Tiredness or fatigue? and sometimes: Falling or dizzy when standing up and Trouble eating well? Have you fallen 2 or more times in the past year?: No Are you afraid of falling?: No Are you a smoker?: no During the past 4 weeks, how many drinks of wine, beer, or other alcoholic beverages did you have?: no alcohol at all Do you exercise for about 20 minutes 3 or more times a week?: yes, some of the time Have you been given information to help with the following?: yes: Hazards in your house that might hurt you? and yes: Keeping track of your medications? How often do you have trouble taking medicines the way you have been told to take them?: I always take medicine as prescribed How confident are you that you can control & manage most of your health problems?: somewhat confident What is your race?: or origin or descent Mini Mental State Exam (MMSE) Orientation Where are we (state) (county) (town or city) (hospital) (floor)?: town or city and hospital/clinic Registration Name of 3 unrelated objects clearly and slowly, then ask patient to repeat all 3 of them. (1st repeat determines score. Make sure they can repeat all three): object 1, object 2 and object 3 Attention & Calculation (CHOOSE ONE) Spell WORLD backwards (DLROW): 3 letters Recall Ask patient to repeat the 3 items from question #3.: object 1 Language Show patient a wristwatch & ask what it is. Repeat for pencil.: watch and pencil Ask the patient to repeat the phrase 'No ifs, ands, or buts' after you.: correct Ask the patient to 'take a piece of paper with their right hand' 'fold paper in half' 'place paper on floor': take paper in right hand, fold paper in half and place paper on floor Print the sentence 'CLOSE YOUR EYES' on a piece. If patient actually closes eyes then score.: followed written direction Give patient a blank piece of paper & ask to write a sentence. Score if it contains a noun & verb.: sentence contains subject and verb Score Score: 17 Activity of Daily Living Bathing - sponge bath, tub bath or shower: receives help in bathing more than one body part (or not bathed) Dressing - getting clothes from closets & drawers, including inner/outer garments & fasteners.: receives help getting clothes or getting dressed, or stays undressed Toileting - going to the 'toilet room' for urine/bowel elimination & cleaning self/arranging clothes: does not go to room termed toilet for elimination process Transfer: moves in & out of bed or chair with help Continence: supervision helps urination/bowel control; catheter use; incontinent Feeding: feeds self without help Total Score: 4 Information obtained from: patient Using telephone: needs assistance Traveling: dependent Shopping: dependent Preparing meals: dependent Housework: dependent Taking medicine: dependent Managing money: dependent PHQ-9 Over the last 2 weeks, how often have you been bothered by any of the following problems? 1. Little interest or pleasure in doing things: more than half the days 2. Feeling down, depressed, or hopeless: not at all 3. Trouble falling or staying asleep, or sleeping too much: more than half the days 4. Feeling tired or having little energy: more than half the days 5. Poor appetite or overeating: not at all 6. Feeling bad about yourself - or that you are a failure or have let yourself or your family down: not at all 7. Trouble concentrating on things, such as reading the newspaper or watching television: nearly every day 8. Moving or speaking so slowly that other people could have noticed. Or the opposite - being so fidgety or restless that you have been moving around a lot more than usual: not at all 9. Thoughts that you would be better off or of hurting yourself in some way: not at all Total score: 9 Depression Screening Interpretation: Positive Depression Screening Follow-up: Existing condition and Follow-up Visit Requested Depression Screening Done: Yes 56150 - PHQ-9 Billing: Yes Source: Developed by Drs. Ramon Coreas, Allie Toscano, Guy Solis and colleagues, with an educational valentin from [employer]. MERRITT-7 AMB Questionnaire MERRITT-7 Date MERRITT - 7 assessed: 11/17/23 Source: Developed by Allie Pack, Guy Solis and colleagues, with an educational valentin from [employer]. Thrive Questionnaire Date Thrive assessed: 11/17/23 Review of Systems Const All systems reviewed & are unremarkable except as noted in HPI and below Card Denies chest pain at rest, Denies chest pain with activity, Denies edema, Denies irregular heart rhythm, Denies claudication, Denies dyspnea, Denies dyspnea on exertion, Denies orthopnea, Denies paroxysmal nocturnal dyspnea and Denies slow heart rate Resp Denies cough, Denies dyspnea and Denies dyspnea on exertion GI Denies abdominal pain, Denies change in bowel habits, Denies excessive flatus, Denies nausea and Denies vomiting Physical Exam Vital Signs: Last Vital Signs BP 118/76 12/20/24 12:50 BMI result Body Mass Index 28.5 Resp Effort & Inspection: normal respiratory effort Auscultation: clear to auscultation bilaterally Cardio Jugular venous distension: no JVD Rate: regular rate Rhythm: regular rhythm Heart sounds: S1 normal heart sound present and S2 normal heart sound present Extrem General: Yes full ROM Results AMB Hemoglobin A1c AMB Hemoglobin A1c 7.4 % Last Edit by RETA Quintero on 12/20/24 13:09 Results Reviewed Results Reviewed: Laboratory Last Values Hgb A1c (Clinic) 7.4 % (4.0-6.0) H 12/20/24 13:07 Assessment & Plan Assessment & Plan (1) Encounter for Medicare annual wellness exam: Code(s): Z00.00 - Encounter for general adult medical examination without abnormal findings (2) Alzheimer's dementia with behavioral disturbance: Code(s): G30.9 - Alzheimer's disease, unspecified; F02.818 - Dementia in other diseases classified elsewhere, unspecified severity, with other behavioral disturbance (3) Fecal incontinence: Code(s): R15.9 - Full incontinence of feces (4) T2DM (type 2 diabetes mellitus): Code(s): E11.9 - Type 2 diabetes mellitus without complications Qualifiers: Diabetes mellitus longterm insulin use: with longterm use Diabetes mellitus complication status: with hyperglycemia Qualified Code(s): E11.65 - Type 2 diabetes mellitus with hyperglycemia; Z79.4 - shelter (current) use of insulin (5) CKD (chronic kidney disease) stage 4, GFR 15-29 ml/min: Code(s): N18.4 - Chronic kidney disease, stage 4 (severe) Plan In this visit, we addressed the comprehensive management of the patient's chronic conditions, specifically type 2 diabetes and hypertension. Ensuring the consistent availability of medications such as Ozempic is a priority. Continued monitoring of cognitive function due to suspected dementia is essential, necessitating further diagnostic evaluations and possibly involving neurological consultation if memory assessments worsen. Suggesting mobility aids could mitigate fall risks, though patient hesitation noted. Any depressive episodes will be monitored, potentially requiring therapeutic or pharmacological adjustments. Patient was informed and verbally consented to the use of an ambient scribe for clinic note documentation during this visit. During our conversation, we reviewed the patient's ongoing management for type 2 diabetes, including medication concerns and glucose monitoring, acknowledging both lifestyle impacts and pharmacological plans. I discussed the implications of cognitive decline and strategies for ensuring patient safety, emphasizing the importance of cognitive evaluations. There was also an informed discussion about depression and its management, with plans for follow-up adjustments based on psychological responses. We addressed medication allergies and the necessity for careful monitoring of reactions to prescribed medications. Encouragement for the use of mobility aids despite reluctance was reiterated to prevent falls. Orders: Orders Complete Blood Count Auto Diff 4 Months D64.9 - Anemia, unspecified Lipid Panel 4 Months E78.5 - Hyperlipidemia, unspecified Microalbumin, Random (w Creat) 4 Months R80.9 - Proteinuria, unspecified Comprehensive [place]. Panel Fast 4 Months E11.65 - Type 2 diabetes mellitus with hyperglycemia, Z79.4 - shelter (current) use of insulin AMB Hemoglobin A1c Today E11.65 - Type 2 diabetes mellitus with hyperglycemia, Z79.4 - shelter (current) use of insulin IRON PROFILE 4 Months D64.9 - Anemia, unspecified Vitamin B12 and Folate 4 Months E53.8 - Deficiency of other specified B group vitamins Vitamin D 25-OH Total 4 Months E55.9 - Vitamin D deficiency, unspecified Referrals Endocrinology Referral E11.65 - Type 2 diabetes mellitus with hyperglycemia, Z79.4 - adjunct faculty for medical terminology (current) use of insulin Gastroenterology Referral R15.9 - Full incontinence of feces Medications: New blood-glucose sensor (LogicSourceStyle Florentino 3 Plus Sensor device) As directed 1 ea 11RF E11.65 - Type 2 diabetes mellitus with hyperglycemia, Z79.4 - shelter (current) use of insulin Refilled semaglutide (Ozempic) 1 mg (0.75 mL) subcut QWEEK 30 days 3.75 mL 11RF E11.65 - Type 2 diabetes mellitus with hyperglycemia, Z79.4 - shelter (current) use of insulin Discontinued memantine Discontinued Reason: Patient Completed Course 7 mg PO DAILY 30 days 30 ea 3RF Patient Instructions: - Monitor blood sugar levels regularly as advised. - Contact pharmacy to resolve Ozempic supply issues. - Explore potential neurology referral for memory assessment. - Use assistive mobility devices to prevent falls. - Report any new or worsening symptoms immediately. - Attend all scheduled follow-up appointments and tests. Quality Reporting (2020) Depression/Bipolar (159/160/161/177) PHQ-9: Total score: 9 Coding Level of Care Code Medicare First (G0438) Est Pt Level 3 (54561) Diagnoses Encounter for Medicare annual wellness exam Z00.00 Alzheimer's dementia with behavioral disturbance G30.9; F02.818 Fecal incontinence R15.9 Type 2 diabetes mellitus with hyperglycemia, with long-term current use of insulin E11.65; Z79.4 Diabetes mellitus terminal computer operator insulin use: with longterm use Diabetes mellitus complication status: with hyperglycemia CKD (chronic kidney disease) stage 4, GFR 15-29 ml/min N18.4 Additional Codes PHQ-9 - 57484 - PHQ-9 Billing: Yes ([id number]) Time Spent (min) 35
[2024-12-20 12:50] VITALS: BP 118/76; BMI 28.5
--- OUTSIDE RECORDS SUMMARY | 2024-12-20 15:05 | XMS_ITS | Clinical Summary ---
Author Organization [facility] Address [address] [address] Phone Care Team Providers Care Material Crew Supervisor Name Role Phone Lamar Hall MD Primary Care Provider [phone] Allergies Active Allergy Reactions Criticality Noted Date Comments Aspirin 12/01/2020 Unknown reactions or severity Metformin Diarrhea 12/01/2020 Medications atorvastatin (LIPITOR) 20 MG tablet Take 1 tablet by mouth 1 (one) time each day Active furosemide (LASIX) 20 MG tablet Take 1 tablet by mouth if needed 06/17/2019 Active omeprazole (PriLOSEC) [address] capsule Take 1 capsule by mouth 1 (one) time each day Active olmesartan (BENICAR) 5 MG tablet Take 5 mg by mouth in the morning and 5 mg in the evening. Active Ozempic, 0.25 or 0.5 MG/DOSE, 2 MG/1.5ML solution pen-injector 05/21/2021 Active donepezil (ARICEPT) 5 MG tablet 10 mg 05/27/2023 Active cyanocobalamin (VITAMIN B-12) 100 MCG tablet Take 50 mcg by mouth 1 (one) time each day Active Multiple Vitamins-Minera ls (multivitamin with iron-minerals) liquid Take by mouth 1 (one) time each day Active potassium chloride (KLOR-CON M15) 15 MEQ CR tablet Take 15 mEq by mouth 1 (one) time each day Do not crush or chew. Active Active Problems Problem Noted Date Diagnosed Date Hyperkalemia 02/01/2021 Renal osteodystrophy 02/01/2021 Benign essential hypertension 12/01/2020 Chronic kidney disease stage 4 12/01/2020 Renal disorder due to type 2 diabetes mellitus 0 12/01/2020 Anemia in chronic kidney disease 12/01/2020 Resolved Problems Problem Noted Date Diagnosed Date Resolved Date Chronic kidney disease 12/01/202012/01 Gastroesophageal reflux disease 12/01/2020 04/03/2021 Type 2 diabetes mellitus 12/01/202005/2021 Encounters Date Type Department Care Team Description 11/25/2024 Orders Only [facility] [address] [place] [address] Loc Gonzalez MD Chronic kidney disease stage 4 (HCC); Renal disorder due to type 2 diabetes mellitus <Diabetic nephropathy> (HCC); Renal osteodystrophy 11/18/2024 4:00 PM EDT Office Visit [facility] [address] [place] [address] Loc Gonzalez MD Chronic kidney disease stage 4 (HCC) (Primary Dx); Renal disorder due to type 2 diabetes mellitus <Diabetic nephropathy> (HCC); Renal osteodystrophy from Last 3 Months Family History Medical History Relation Comments Stroke Mother Relation Status Comments Father Mother Social History Tobacco Use Types Packs/Day Years Used Date Smoking Tobacco: Never Smokeless Tobacco: Never Alcohol Use Standard Drinks/Week Comments No 0 (1 standard drink = 0.6 oz pur e alcohol) Comments Unknown Sex and Gender Information Value Date Recorded Sex Assigned at Not on file Legal Sex Female 4:52 PM EST Gender Identity Not on file Sexual Orientation Not on file Last Filed Vital Signs Vital Sign Reading Time Taken Comments Blood Pressure 132/84 11/18/2024 4:07 PM EDT Pulse 67 11/18/2024 4:07 PM EDT Temperature - - Respiratory Rate - - Oxygen Saturation 99% 11/18/2024 4:07 PM EDT Inhaled Oxygen Concentration - - Weight 71.4 kg (157 lb 6.4 oz) 11/18/2024 4:07 P M EDT Height 154.9 cm (5' 1 ) 12/01/2020 11:04 AM EDT Body Mass Index 29.74 12/01/2020 11:04 AM EDT Plan of Treatment Upcoming Encounters Date Type Department Care Team (Late st Contact Info) Description 05/09/2025 3:45 PM EDT Office Visit [facility] [address] [place] [address] Loc Gonzalez MD [address] [facility] [address] [place] [address] Health Maintenance Due Date Last Done Comments Pneumococcal Vaccine: 50+ Years (1 of 2 - PCV) 1954 Diabetes: Ophthalmology Exam 09/25/2020 Diabetes: Pedal Pulse Checked 09/25/2020 Diabetes: Sensory Foot Exam 09/25/2020 Diabetes: Visual Foot Exam 09/25/2020 Diabetes: Hemoglobin A1C 02/18/2024 024, 03/26/2022, 06/28/2021 Influenza Vaccine (Season Ended) 2025 Hepatitis B Vaccine Aged Out No longe r eligible based on patient's age to complete this topic Procedures Procedure Name Priority Date/Time Associated Diagnosis Comments ALT EXT LABS Routine 11/18/2023 from Last 3 Months or Most Recently Relevant to Health Maintenance Results * (ABNORMAL) ALT EXT LABS (11/18/2023) Hemoglobin A1C 6.3(A) 4.0 - 6.0 11/18/2023 Historical Provider LAB BLOOD ORDERABLES [place] l Result from Last 3 Months or Most Recently Relevant to Health Maintenance Insurance * Guarantor: [employer] Account Type Relation to Patient Date of Phone Billing Address Personal/Family Self [address] [place] [id number] Medicaid [place] * Guarantor: [employer] Account Type Relation to Patient Date of Phone Billing Address Personal/Family Self [address] [place] [address] Medicaid [place] [employer] Medicare * Guarantor: [employer] Account Type Relation to Patient Date of Phone Billing Address Personal/Family Self 1935 [address] [place] [address] Care Teams Material Crew Supervisor Relationship Specialty Start Date End Date Lamar Hall MD [address] [place], [place] PCP - General 09/04/20
--- OUTSIDE RECORDS SUMMARY | 2024-12-20 15:05 | XMS_ITS | Encounter Summary ---
Author Organization [facility] Address [address] [facility] [address] [place] [address] Phone Care Team Providers Care Adjunct Mathematics Instructor Name Role Phone Lamar Hall MD Primary Care Provider [phone] Encounter Details Date Type Department Care Team (Late Contact Info) Description 02/15/2021 Orders Only [facility] [address] [place] [address] Loc Gonzalez MD [address] [facility] [address] [place] [address] Chronic kidney disease stage 4 (HCC); Renal disorder due to type 2 diabetes mellitus <Diabetic nephropathy> (HCC); Anemia in chronic kidney disease Social History Tobacco Use Types Packs/Day Years Used Date Smoking Tobacco: Never Smokeless Tobacco: Never Alcohol Use Standard Drinks/Week Comments No 0 (1 standard drink = 0.6 oz pur e alcohol) Comments Unknown Sex and Gender Information Value Date Recorded Sex Assigned at Not on file Legal Sex Female 4:52 PM EST Gender Identity Not on file Sexual Orientation Not on file documented as of this encounter Plan of Treatment Upcoming Encounters Date Type Department Care Team (Late st Contact Info) Description 05/09/2025 3:45 PM EDT Office Visit [facility] [address] [place] [address] Loc Gonzalez MD [address] [facility] [address] [place] [address] documented as of this encounter Visit Diagnoses Diagnosis Chronic kidney disease stage 4 (HCC) Renal disorder due to type 2 diabetes mellitus <Diabetic nephropathy> (HCC) Anemia in chronic kidney disease documented in this encounter Care Teams Adjunct Mathematics Instructor Relationship Specialty Start Date End Date Lamar Hall MD [address] [place], [place] PCP - General 09/04/20 documented as of this encounter
== END 2024-12-20 13:30 | disposition home or self-care (01) ==
LOC: HO.HMCH 12:45
PROVIDERS: PCP Internal Medicine; Visit Provider Internal Medicine
DX: Z00.00 Encounter for general adult medical examination without abnormal findings (principal); G30.9 Alzheimer's disease, unspecified; F02.818 Dementia in other diseases classified elsewhere, unspecified severity, with other behavioral disturbance; E11.65 Type 2 diabetes mellitus with hyperglycemia; Z79.4 Long term (current) use of insulin; N18.4 Chronic kidney disease, stage 4 (severe); R15.9 Full incontinence of feces

== ENCOUNTER → 2024-12-20 12:45 | Outpatient (BNVA) | payer OTHER, SELFPAY | PROVIDERS: PCP Internal Medicine; Visit Provider Internal Medicine | DX: Z00.00 Encounter for general adult medical examination without abnormal findings (principal); G30.9 Alzheimer's disease, unspecified; F02.818 Dementia in other diseases classified elsewhere, unspecified severity, with other behavioral disturbance; R15.9 Full incontinence of feces; E11.22 Type 2 diabetes mellitus with diabetic chronic kidney disease; I12.9 Hypertensive chronic kidney disease with stage 1 through stage 4 chronic kidney disease, or unspecified chronic kidney disease; N18.4 Chronic kidney disease, stage 4 (severe); E11.65 Type 2 diabetes mellitus with hyperglycemia; Z79.4 Long term (current) use of insulin | CPT/HCPCS: 83036; 96127; 99212 ==

== ENCOUNTER 2025-03-17 11:42 | Outpatient (AMB) | payer OTHER, SELFPAY ==
[2025-03-17 11:44] VITALS: BP 128/80; PULSE 99; O2SAT 99; BMI 26.7
--- NOTE | 2025-03-17 11:44 | A.OFFPC_ITS ---
Vital Signs 03/17/25 11:44 Height 5 ft 1 in Weight 141 lb 8 oz BMI 26.7 BP 128/80 Blood Pressure Location Lt brachial Position Sitting Pulse 99 Pulse Source Pulse Oximeter Pulse Oximetry (%) 99 Oxygen Delivery Method Room Air Intake Visit Reasons: vomiting pain in her stomach Flexboard Operator Required: No Accompanied by: Self / Same As Patient Allergies aspirin Allergy (Intermediate, Verified 03/17/25 12:28) unknown Penicillins Allergy (Verified 03/17/25 12:28) Unknown metformin Adverse Reaction (Intermediate, Verified 03/17/25 12:28) diarrhea Medication List - Last Reconciled 03/17/25 by Pritesh Timmons MD blood sugar diagnostic (OneTouch Ultra Test strips) Use 1 test strip twice a day blood sugar diagnostic (FreeStyle Lite Strips) As directed blood-glucose meter As directed blood-glucose meter (FreeStyle [place] Lite kit) As directed blood-glucose sensor (FreeStyle [place] 3 Plus Sensor device) As directed cholecalciferol (vitamin D3) 25 mcg PO DAILY 90 days donepezil 10 mg PO BEDTIME 30 days flash glucose scanning reader (FreeStyle [place] 14 Day [place]) As directed flash glucose sensor (FreeStyle [place]orent[place] 14 Day Sensor kit) As directed guaifenesin ER (Mucinex) 600 mg PO BID 5 days lancets Use 1 lancet twice a day lancets (FreeStyle Lancets) As directed olmesartan 5 mg PO BID 90 days ondansetron 8 mg PO Q12H PRN 5 days pantoprazole 40 mg PO DAILY 90 days pen needle, diabetic USE DIRECTED semaglutide (Ozempic) 1 mg (0.75 mL) subcut QWEEK 30 days Tresiba FlexTouch U-100 (insulin degludec) 15 units (0.15 mL) subcut DAILY 30 days NS underpads (Bed Underpads) Use 6 pads once a day vitamin B complex 1 tab PO DAILY 30 days walker with seat [wheelchair As directed] [wipes Use 6 wipes per day] Tobacco use date assessed: 03/17/25 Fall risk assessment: No Falls in past year Last assessed Fall Risk: 03/17/25 Dental Screening Dental Screen Date: 03/17/25 Did you have a dental visit in the last 12 months?: No Did you have a dental problem in the last 6 months where you did not have access to dental care?: No Was dental information given to patient?: No HPI vomiting pain in her stomach HPI Details Patient is brought in today by her family members for evaluation of her complaints of recurrent abdominal pain Patient has dementia so some of her supposed complaints have to be taken in context as her family states that she would sometimes complain of certain symptoms and would then be fine the next second Per her family, she has been complaining consistently though recurrent epigastric pain for the past few days Patient reports experiencing on and off nausea and abdominal bloating/gas pains but denies any vomiting States that her bowel movements are regular and she has had no diarrhea lately She has pantoprazole included in her medication list but it is unclear at this time if she is taking this at all Family also states that patient would often skip her meals and not eat when she does not feel like eating They would like to see if he can be prescribed some Ensure supplements as they are concerned that she is hardly eating and losing weight lately No other acute complaints or symptoms are noted [facility] Medical History Goiter HLD (hyperlipidemia) HTN (hypertension) T2DM (type 2 diabetes mellitus) Anemia in chronic kidney disease CKD (chronic kidney disease) stage 4, GFR 15-29 ml/min Diabetes mellitus Essential hypertension Primary osteoarthritis of knees, bilateral Surgical History Hx of eye surgery History of knee replacement procedure of right knee History of cholecystectomy History of total hysterectomy History of appendectomy History of total knee arthroplasty (~12/22/18) Family History Father Dementia Mother No problems noted. Social History Household Members: Children Housing: Apartment Alcohol intake: never Patient Tobacco Use Status: Never used Tobacco e-Cigarette/Vaping Use: Never Used Second Hand Smoke Exposure: No Advance Directives Date on File: 12/16/22 service: No Current occupational status: disabled Cognitive needs: No Hearing needs: No Vision needs: No Questionnaire PHQ-9 Over the last 2 weeks, how often have you been bothered by any of the following problems? 1. Little interest or pleasure in doing things: more than half the days 2. Feeling down, depressed, or hopeless: not at all 3. Trouble falling or staying asleep, or sleeping too much: more than half the days 4. Feeling tired or having little energy: more than half the days 5. Poor appetite or overeating: not at all 6. Feeling bad about yourself - or that you are a failure or have let yourself or your family down: not at all 7. Trouble concentrating on things, such as reading the newspaper or watching television: nearly every day 8. Moving or speaking so slowly that other people could have noticed. Or the opposite - being so fidgety or restless that you have been moving around a lot more than usual: not at all 9. Thoughts that you would be better off or of hurting yourself in some way: not at all Total score: 9 Depression Screening Interpretation: Positive Depression Screening Follow-up: Existing condition and Follow-up Visit Requested Depression Screening Done: Yes 32016 - PHQ-9 Billing: Yes Source: Developed by Drs. Ramon Coreas, Allie Toscano, Guy Solis and colleagues, with an educational valentin from [employer]. Thrive Questionnaire Date Thrive assessed: 03/17/25 I am a: Patient What is your living situation today?: I have a steady place to live Within the past 12 months, did the food you bought not last and you didn't have the money to get more?: Never true Within the past 12 months, did you worry whether your food would run out before you got money to buy more?: Never true Do you have trouble paying for medicines?: No Do you have trouble getting transportation to medical appointments?: No Do you have trouble paying your heating and electricity bill?: No Do you have trouble taking care of your child, family member or friend?: No Do you have trouble with day-to-day activities such as bathing, preparing meals, shopping, managing finances, etc.?: No Are you currently unemployed and looking for a job?: No Are you interested in more education?: No Please select the resources that you would like help with: None Currently or been in a relationship where the following occur: No concerns reported THRIVE Score: 0 AUDIT C Alcohol Use Questionnaire (AUDIT-C) 1. How often do you have a drink containing alcohol?: Never 3. How often do you have six or more drinks on one occasion?: Never Total Score: 0 Score Reviewed/Action Taken: Yes MERRITT-7 AMB Questionnaire MERRITT-7 Date MERRITT - 7 assessed: 03/17/25 Feeling nervous, anxious, or on edge: 0 = Not at all Not being able to stop or control worryin = Not at all Worrying too much about different things: 0 = Not at all Trouble relaxin = Not at all Being so restless that it is hard to sit still: 0 = Not at all Becoming easily annoyed or irritable: 0 = Not at all Feeling afraid as if something awful might happen: 0 = Not at all Total MERRITT-7 score (0-4 normal; 5-9 mild; 10-14 moderate; 15-21 severe): 0 Source: Developed by Drs. Ramon Coreas, Allie Toscano, Guy Solis and colleagues, with an educational valentin from [employer]. Review of Systems Const Denies chills, Denies fatigue, Denies fever(s) and Denies headache(s) ENT Denies dysphagia, Denies dizziness, Denies otalgia, Denies headache(s), Denies neck pain, Denies odynophagia and Denies sore throat Card Denies chest pain, Denies palpitations and Denies dyspnea Resp Denies chest congestion, Denies cough and Denies dyspnea GI Reports abdominal pain (on and off, mostly over the epigastric area), Reports bloating, Denies constipation, Denies dysphagia, Denies heartburn, Denies diarrhea, Reports nausea (on and off), Denies odynophagia and Denies vomiting Denies difficulty voiding, Denies nocturia and Denies dysuria Musc Denies back pain and Denies neck pain Skin/Breast Denies rash Neuro Reports confusion (patient has dementia), Denies dizziness and Denies headache(s) Psych Reports confusion (patient has dementia) Endo Denies fatigue and Denies palpitations Physical exam (Primary Care) Vital Signs: Last Vital Signs Pulse 99 03/17/25 11:44 BP 128/80 03/17/25 11:44 Pulse Ox 99 03/17/25 11:44 Oxygen Delivery Method Room Air 07/24/25 11:44 BMI result Body Mass Index 26.7 Tobacco/Smoking Status: Tobacco use Status Tobacco use date assessed 03/17/25 03/17/25 11:56 Patient Tobacco Use Status Never used Tobacco 03/17/25 11:56 e-Cigarette/Vaping Use Never Used 03/17/25 11:56 PHQ-9: PHQ-9 Score PHQ-9: Total score 9 03/17/25 12:32 Depression Screening Interpretation: Positive Depression Screening Follow-up: Existing condition and Follow-up Visit Requested Thrive Assessment: Date of Thrive Assessment Date Thrive assessed 03/17/25 03/17/25 11:56 Currently or been in a relationship where the following occur: No concerns reported Const General: confusion (patient has dementia) Orientation/consciousness: confusion (patient has dementia) HENMT Throat: Yes posterior oropharynx normal and Yes tonsils normal (no TP congestion) Neck Neck: Yes supple and No lymphadenopathy Thyroid: Thyroid normal Resp Auscultation: clear to auscultation bilaterally, no rales and no wheezes Cardio Rate: regular rate Rhythm: regular rhythm Heart sounds: no murmurs GI Palpation (GI): Soft to palpation, Tenderness to palpation present (GI) (mild) in the epigastrum and no guarding Auscultation: normal bowel sounds General: Yes no CVA tenderness Back/Spine/Pelvis Back: no CVA tenderness Neuro General: confusion (patient has dementia) Extrem General: Yes no clubbing, cyanosis or edema Coding Level of Care Code Est Pt Level 4 (54604) Diagnoses Epigastric pain R10.13 Alzheimer's dementia with behavioral disturbance G30.9; F02.818 Additional Codes PHQ-9 - 48967 - PHQ-9 Billing: Yes ([id number]) Assessment & Plan Assessment & Plan (1) Epigastric pain: Code(s): R10.13 - Epigastric pain Category: Medical Plan: Suspect gastritis Reinforced dietary restrictions with patient's family Continue Pantoprazole 40 mg QD - Rx refilled Will start her additionally on Famotidine 20 mg BID for 1 month Follow up with GI as scheduled - has appointment coming up in a couple of weeks on 03/30/2025 (2) Alzheimer's dementia with behavioral disturbance: Code(s): G30.9 - Alzheimer's disease, unspecified; F02.818 - Dementia in other diseases classified elsewhere, unspecified severity, with other behavioral disturbance Category: Medical Plan: Per request, will start her on Ensure supplements 1 can TID with meals Plan Follow-up with PCP as scheduled in early April 2025 Medications: New famotidine 20 mg PO BID 60 tabs 0RF epigastric pain 30 days food supplemt, lactose-reduced (Ensure oral liquid) CHOCOLATE FLAVOR 1 ea PO .TID with meals 90 multiple units 1RF 30 days F02.818 - Dementia in other diseases classified elsewhere, unspecified severity, with other behavioral disturbance, G30.9 - Alzheimer's disease, unspecified Refilled pantoprazole 40 mg PO DAILY 90 tabs 1RF 90 days
--- OUTSIDE RECORDS SUMMARY | 2025-03-17 12:32 | XMS_ITS | Clinical Summary ---
Author Organization [facility] Address [address] [address] Phone Care Team Providers Care Director Of Software Development Name Role Phone Lamar Hall MD Primary Care Provider [phone] Allergies Active Allergy Reactions Criticality Noted Date [...] 12/01/2020 04/03/2021 Type 2 diabetes mellitus 12/01/202005/2021 Family History Medical History Relation Comments Stroke [...] Visit [facility] [address] [place] [address] Loc Gonzalez MD [address] [facility] [address] [place] [id number] Health Maintenance Due Date Last Done Comments Pneumococcal Vaccine: 50+ Years (1 of 2 - PCV) 1954 Diabetes: Ophthalmology Exam 09/25/2020 Diabetes: Pedal Pulse Checked 09/25/2020 Diabetes: Sensory Foot Exam 09/25/2020 Diabetes: Visual Foot Exam 09/25/2020 Diabetes: Hemoglobin A1C 02/18/2024 024, 03/26/2022, 06/28/2021 Influenza Vaccine (#1) 2025 Hepatitis B Vaccine Aged Out No longe r eligible based on patient's age to complete this topic Procedures Procedure Name Priority Date/Time Associated Diagnosis Comments ALT EXT LABS Routine 11/18/2023 from Last 3 Months or Most Recently Relevant to Health Maintenance Results * (ABNORMAL) ALT EXT LABS (11/18/2023) Hemoglobin A1C 6.3(A) 4.0 - 6.0 11/18/2023 us Historical Provider LAB BLOOD ORDERABLES [place] l Result from Last 3 Months or Most Recently Relevant to Health Maintenance Insurance * Guarantor: Pepper Aly Account Type Relation to Patient Date of Phone Billing Address Personal/Family Self 1935 [address] [place] [address] Medicaid [place] Member Subscriber Plan / Payer (Ef fective 2020-Present) Name:Pepper Aly Relation to Subscriber:Self Name:Ppeper Aly Payer ID:Not on file Group ID:Not on file Type:Not on file Address: [address] * Guarantor: Pepper Aly Account Type Relation to Patient Date of Phone Billing Address Personal/Family Self [address] [place] [address] Medicaid [place] [employer] Medicare * Guarantor: Pepper Aly Account Type Relation to Patient Date of Phone Billing Address Personal/Family Self [address] [place] [address] Care Teams Director Of Software Development Relationship Specialty Start Date End Date Lamar Hall MD [address] [place] PCP - General 09/04/20
== END 2025-03-17 12:40 | disposition home or self-care (01) ==
LOC: HO.HMCH 11:42
PROVIDERS: PCP Internal Medicine; Visit Provider Internal Medicine
DX: R10.13 Epigastric pain (principal); G30.9 Alzheimer's disease, unspecified; F02.818 Dementia in other diseases classified elsewhere, unspecified severity, with other behavioral disturbance

== ENCOUNTER → 2025-03-17 11:42 | Outpatient (BNVA) | payer OTHER, SELFPAY | PROVIDERS: PCP Internal Medicine; Visit Provider Internal Medicine | DX: R10.13 Epigastric pain (principal); G30.9 Alzheimer's disease, unspecified; F02.818 Dementia in other diseases classified elsewhere, unspecified severity, with other behavioral disturbance; Z79.899 Other long term (current) drug therapy; Z13.31 Encounter for screening for depression; Z13.39 Encounter for screening examination for other mental health and behavioral disorders | CPT/HCPCS: 96127; 99212 ==

== ENCOUNTER 2025-03-30 10:58 | Outpatient (AMB) | payer OTHER, SELFPAY ==
--- NOTE | 2025-03-30 11:00 | A.OFFVIS_ITS ---
Vital Signs 03/30/25 11:02 Height 5 ft 1 in Weight 149 lb 14.629 oz BMI 28.3 BP 144/76 H Blood Pressure Location Lt brachial Position Sitting Pulse 80 Intake Visit Reasons: full incontinence of feces Intake Note: Pepper presents in the office as a new patient for incontinence CC: diarrhea, pains in the stomach, vomiting. 1 week she had no appetite and had vomiting - she was given zofran and it seems to help. It has been going on for months and at least 2 weeks aout of the month she has these symptoms. Balance Wheel Hand Filer Required: Yes Balance Wheel Hand Filer Name: grand daughter Allergies aspirin Allergy (Intermediate, Verified 03/30/25 11:04) unknown Penicillins Allergy (Verified 03/30/25 11:04) Unknown metformin Adverse Reaction (Intermediate, Verified 03/30/25 11:04) diarrhea Medication List - Last Reconciled 03/30/25 by Eboni Irene CNP blood sugar diagnostic (OneTouch Ultra Test strips) Use 1 test strip twice a day blood sugar diagnostic (FreeStyle Lite Strips) As directed blood-glucose meter As directed blood-glucose meter (FreeStyle [place] Lite kit) As directed blood-glucose sensor (FreeStyle Florentino 3 Plus Sensor device) As directed cholecalciferol (vitamin D3) 25 mcg PO DAILY 90 days donepezil 10 mg PO BEDTIME 30 days famotidine 20 mg PO BID 30 days flash glucose scanning reader (FreeStyle Florentino 14 Day [place]) As directed flash glucose sensor (FreeStyle [place]orentino 14 Day Sensor kit) As directed food supplemt, lactose-reduced (Ensure oral liquid) 1 ea PO .TID with meals 30 days guaifenesin ER (Mucinex) 600 mg PO BID 5 days lancets Use 1 lancet twice a day lancets (FreeStyle Lancets) As directed olmesartan 5 mg PO BID 90 days ondansetron 8 mg PO Q12H PRN 5 days pantoprazole 40 mg PO DAILY 90 days pen needle, diabetic USE DIRECTED semaglutide (Ozempic) 1 mg subcut QWEEK PRN Tresiba FlexTouch U-100 (insulin degludec) 15 units (0.15 mL) subcut DAILY 30 days NS underpads (Bed Underpads) Use 6 pads once a day vitamin B complex 1 tab PO DAILY 30 days walker with seat [wheelchair As directed] [wipes Use 6 wipes per day] HPI HPI full incontinence of feces: Details: Patient is a 89-year-old female with PMH of cognitive impairment, hypertension, hyperlipidemia, diabetes and CKDIV. Referred by PCP for further evaluation of epigastric pain Patient presents with a six-month history of epigastric pain described as intermittent but worsening. The pain is associated with nausea, vomiting, and diarrhea, which now occur regardless of dietary intake. Symptoms are sometimes severe enough to impact daily function (e.g., not eating for a week while granddaughter was away on vacation). Symptoms appear to worsen postprandially, with noted abdominal discomfort described as a sensation of a ball in the epigastric area. She occasionally experiences urge incontinence secondary to diarrhea accompanied by abdominal discomfort, with exacerbations 2-3 times per month. Dietary modifications, including avoidance of greasy, spicy, and acidic foods, have not alleviated symptoms. She has taking pantoprazole for at least the past year. Relevant systemic and medical history includes insulin-dependent diabetes mellitus (HbA1c 7.44) and ongoing management for Alzheimer's dementia, diagnosed in 2023. She was born with only one kidney. No associated symptoms of fever, weight loss (current weight 149?150 lbs; prior weight 171 lbs in 2020), melena, hematemesis, or dysphagia reported. Patient denies: fever/chills pyrosis, regurgitation,dysphasia, unintentional wt loss or melena/hematochezia. Social hx: -social ETOH use, last use 2+ years ago -recreational drug use -non-smoker PFSH Medical History (Updated 03/30/25 @ 12:13 by Eboni Irene CNP) Chronic diarrhea Goiter HLD (hyperlipidemia) HTN (hypertension) T2DM (type 2 diabetes mellitus) Anemia in chronic kidney disease CKD (chronic kidney disease) stage 4, GFR 15-29 ml/min Diabetes mellitus Essential hypertension Primary osteoarthritis of knees, bilateral Surgical History (Updated 03/30/25 @ 11:06 by RETA Smith) Hx of colonoscopy Hx of eye surgery History of knee replacement procedure of right knee History of cholecystectomy History of total hysterectomy History of appendectomy History of total knee arthroplasty (~12/22/18) Family History Father Dementia Mother No problems noted. Social History Household Members: Children Housing: Apartment Alcohol intake: never Patient Tobacco Use Status: Never used Tobacco e-Cigarette/Vaping Use: Never Used Second Hand Smoke Exposure: No Advance Directives Date on File: 12/16/22 service: No Current occupational status: disabled Cognitive needs: No Hearing needs: No Vision needs: No Review of Systems Const Reports as per HPI ENT Reports as per HPI Card Reports as per HPI Resp Reports as per HPI GI Reports as per HPI Reports as per HPI Physical Exam Vital Signs: Last Vital Signs Pulse 80 03/30/25 11:02 BP 144/76 H 03/30/25 11:02 BMI result Body Mass Index 28.3 Const General: healthy appearing, no acute distress and well developed Nutritional Appearance: average body habitus Orientation/consciousness: patient oriented x3 HEENT Head: Yes normal to inspection, Yes normocephalic and Yes atraumatic Face and sinus: Yes normal facial exam Eyes General: appearance normal, both eyes and all related structures Neck Neck: Yes normal visual inspection Resp Effort & Inspection: normal respiratory effort, able to speak in complete sentences, no tracheal deviation and symmetric chest movement Auscultation: clear to auscultation bilaterally Cardio Jugular venous distension: no JVD Rate: regular rate Rhythm: regular rhythm Heart sounds: S1 normal heart sound present, S2 normal heart sound present, no gallops and no murmurs GI Inspection: Yes normal to inspection and No distended Palpation (GI): Soft to palpation, not firm, nontender and No hepatosplenomegaly present Auscultation: normal bowel sounds Neuro General: patient oriented x3 Gait exam (Neuro): Normal gait present Psych Appearance: grossly normal Mental Status: mental status grossly normal Speech and movement: Normal speech and movement present Affect: normal affect Attitude: cooperative Insight: Fair insight present (Psych) Judgement: Fair judgement present (Psych) Assessment & Plan Assessment & Plan (1) Epigastric pain: Code(s): R10.13 - Epigastric pain Category: Medical Plan: Upper GI symptoms, postprandial pain, partial response to PPI. Likely multifactorial possible GERD VS silent reflux VS peptic ulcer disease VS other. s/p cholecystectomy and appendectomy Additional Testing: Stool H. pylori Ag (hold PPI x2wks prior). Medication Management: Hold pantoprazole x2wks; start sucralfate 1g PO BID NC N for symptom control during bridge. Restart pantoprazole after stool samples collected. Lifestyle Recommendations: Continue low-fat, bland diet; elevate HOB. Follow-Up: If H. pylori+, start treatment per protocol. (2) Chronic diarrhea: Code(s): K52.9 - Noninfective gastroenteritis and colitis, unspecified Category: Medical Plan: Ongoing diarrhea with urge incontinence, change in stool pattern, unknown CRC screening hx. DDX; Malabsorption syndromes (e.g., celiac disease) VS IBD (though less likely given age) VS colorectal neoplasia (polyps/mass). Additional Testing: Stool studies (calprotectin, O&P), celiac serologies; will consider CT abd/pelvis to eval for mass/polyp prior to invasive testing. Medication Management: Loperamide PO PRN (4 mg at onset, then 2 mg per loose stool, max 16 mg/24h). Lifestyle Recommendations: Encourage hydration during episodes. Future: Consider colonoscopy pending imaging/stool results. Follow-Up: Review stool and imaging results at next visit or sooner if symptoms worsen (3) Alzheimer's dementia with behavioral disturbance: Code(s): G30.9 - Alzheimer's disease, unspecified; F02.818 - Dementia in other diseases c lassified elsewhere, unspecified severity, with other behavioral disturbance Category: Medical Plan: Established dx, ongoing cognitive decline, functional impact on ADLs. Additional Testing: recent PET scan ordered by neurologist Medication Management: Continue current dementia regimen. Lifestyle Recommendations: Maintain structured environment, supervision for ADLs, monitor for further decline. Follow-Up: Coordinate with neurology/PCP as needed Plan Follow-up in 3 months or sooner as needed Time: I spent a total of 45 minutes on the date of encounter which includes: Preparing to see the patient (reviewed previous documentation, test results and medical history) Performing a medically appropriate exam and/or evaluation Ordering medications, tests, and procedures Documenting clinical information in the health record Orders: Orders Calprotectin, Fecal Today Eboni Irene CNP R15.9 - Full incontinence of feces Ova and Parasite Today Eboni Irene CNP K52.9 - Noninfective gastroenteritis and colitis, unspecified Comprehensive [place]. Panel Fast Today Eboni Irene CNP R19.7 - Diarrhea, unspecified C Reactive Protein Today Eboni Irene CNP R15.9 - Full incontinence of feces Transglutaminase IgA Today Eboni Irene CNP R15.9 - Full incontinence of feces FL upper GI small bowel Today Eboni Irene CNP R10.13 - Epigastric pain H pylori Ag Stool Today Eboni Irene CNP R10.13 - Epigastric pain Fecal Fat Qualitative Today Eboni Irene CNP K52.9 - Noninfective gastroenteritis and colitis, unspecified Complete Blood Count Auto Diff Today Eboni Irene CNP R19.7 - Diarrhea, unspecified Medications: New sucralfate Take on tablet two times daily as needed. Take an empty stomach. Avoid antacids within 30 minutes. 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
[2025-03-30 11:02] VITALS: BP 144/76; PULSE 80; BMI 28.3
--- OUTSIDE RECORDS SUMMARY | 2025-03-30 11:40 | XMS_ITS | Clinical Summary ---
Author Organization [facility] Address [address] [address] Phone Care Team Providers Care Junior Accounting Clerk Name Role Phone Lamar Hall MD Primary Care Provider [phone] Allergies Active Allergy Reactions Criticality Noted Date [...] Care Team (Late st Contact Info) Description 05/05/2025 3:45 PM EDT Office Visit [facility] [address] [place] [address] Loc Gonzalez MD [address] [facility] [address] [place] [phone] Health Maintenance Due Date Last Done Comments [...] Phone Billing Address Personal/Family Self 1935 [address] [place] [address] Medicaid [place] Member Subscriber Plan / Payer (Ef fective 2020-Present) Name:Pepper Aly Relation to Subscriber:Self Name:Pepper Aly Payer ID:Not on file Group ID:Not on file Type:Not on file Address: [address] * Guarantor: Pepper Aly Account Type Relation to Patient Date of Phone Billing Address Personal/Family Self [address] [place] [address] [place] [employer] Medicare * Guarantor: Pepper Aly Account Type Relation to Patient Date of Phone Billing Address Personal/Family Self [address] [place] [address] Care Teams Junior Accounting Clerk Relationship Specialty Start Date End Date Lamar Hall MD [address] [place] PCP - General 09/04/20
== END 2025-03-30 11:51 | disposition home or self-care (01) ==
LOC: HO.HGI 10:59
PROVIDERS: PCP Internal Medicine; Visit Provider Nurse Practitioner Family
DX: R10.13 Epigastric pain (principal); K52.9 Noninfective gastroenteritis and colitis, unspecified; G30.9 Alzheimer's disease, unspecified; F02.818 Dementia in other diseases classified elsewhere, unspecified severity, with other behavioral disturbance
CPT/HCPCS: 99204

== ENCOUNTER → 2025-03-30 10:58 | Outpatient (BNVA) | payer OTHER, SELFPAY | PROVIDERS: PCP Internal Medicine; Visit Provider Nurse Practitioner Family | DX: R10.13 Epigastric pain (principal); K52.9 Noninfective gastroenteritis and colitis, unspecified; R15.9 Full incontinence of feces; G30.9 Alzheimer's disease, unspecified; F02.818 Dementia in other diseases classified elsewhere, unspecified severity, with other behavioral disturbance | CPT/HCPCS: 99202 ==

== ENCOUNTER 2025-04-08 07:47 | Outpatient (REF) | payer OTHER, SELFPAY ==
--- OUTSIDE RECORDS SUMMARY | 2025-04-08 07:49 | XMS_ITS | Clinical Summary ---
Author Organization [facility] Address [address] [address] Phone Care Team Providers Care Caisson Worker Name Role Phone Lamar Hall MD Primary Care Provider Allergies Active Allergy Reactions Criticality Noted Date [...] Visit [facility] [address] [place] [address] Loc Gonzalez MD [address] [facility] [address] [place] [phone] Health Maintenance Due Date Last Done Comments [...] Phone Billing Address Personal/Family Self 1935 [address] [facility] [address] [place] [address] [place] Member Subscriber Plan / Payer (Ef fective 2020-Present) Name:Pepper Aly Relation to Subscriber:Self Name:Pepper Aly Payer ID:Not on file Group ID:Not on file Type:Not on file Address: [address] * Guarantor: Pepper Aly Account Type Relation to Patient Date of Phone Billing Address Personal/Family Self [address] [place] [address] [place] [employer] Medicare * Guarantor: Pepper Aly Account Type Relation to Patient Date of Phone Billing Address Personal/Family Self [address] [place] [address] Care Teams Caisson Worker Relationship Specialty Start Date End Date Lamar Hall MD [address] [place] PCP - General 09/04/20
[2025-04-08 08:01] LABS: MANUAL DIFF FLAG NO
[2025-04-08 08:38] LABS: Hematocrit 32.2 % (37.0-47.0); Hemoglobin 10.5 g/dl (12.0-16.0); Imm Gran Abs Auto 0.02 X10*3/uL (0.00-0.03); Imm Gran Pct Auto 0.3 % (0.0-0.4); Lymphocytes Absolute Auto 2.8 X10*3/uL (1.2-4.9); Mean Corpuscular HGB Conc 32.6 g/dl (31.0-35.0); Mean Corpuscular Hemoglobin 31.5 pg (27.0-33.0); Mean Corpuscular Volume 96.7 fL (80.0-98.0); NRBC Abs Auto 0.000 X10*3/uL (0.0-0.012); NRBC Pct Auto 0.0 /100WBC (0.0-0.2); Platelet Count 295 X10*3/uL (160-400); Red Blood Count 3.33 X10*6/uL (4.20-5.50); White Blood Count 7.3 X10*3/uL (4.8-10.8)
[2025-04-08 09:12] LABS: Alanine Aminotransferase 12 U/L (0-31); Albumin Level 3.5 g/dL (3.5-5.0); Alkaline Phosphatase 89 U/L (39-117); Anion Gap 11 (12-20); Aspartate Amino Transferase 17 U/L (5-31); Blood Urea Nitrogen 34 mg/dL (9-16); Calcium 9.3 mg/dL (8.4-10.2); Carbon Dioxide 22 mmol/L (22-29); Chloride 114 mmol/L (96-108); Cholesterol 169 mg/dL (<200); Estimated Glomerular Filt Rate 16; HDL Cholesterol 54 mg/dL (>40); Iron 53 mcg/dL (30-160); Percent Iron Saturation 29 % (15-50); Potassium 4.9 mmol/L (3.3-5.1); Sodium 142 mmol/L (135-145); Total Iron Binding Capacity 185 mcg/dL (228-428); Total Protein 7.0 g/dL (6.5-8.0); Triglycerides 77 mg/dL (<150); Unsaturated Iron Binding 132 ug/dL
[2025-04-08 09:39] LABS: Folate 9.9 ng/mL (> or = 4.0); Vitamin B12 487 pg/mL (200-900)
== END 2025-04-08 07:48 | disposition home or self-care (01) ==
LOC: HO.LAB 07:47
PROVIDERS: PCP Internal Medicine; Visit Provider Internal Medicine
DX: E11.65 Type 2 diabetes mellitus with hyperglycemia (principal); E53.8 Deficiency of other specified B group vitamins; E55.9 Vitamin D deficiency, unspecified; E78.5 Hyperlipidemia, unspecified; D64.9 Anemia, unspecified; Z79.4 Long term (current) use of insulin
CPT/HCPCS: 36415; 80053; 80061; 82306; 82607; 82746; 83540; 85025

== ENCOUNTER 2025-04-26 17:07 | Outpatient (AMB) | payer OTHER, SELFPAY ==
--- OUTSIDE RECORDS SUMMARY | 2025-04-26 17:10 | XMS_ITS | Encounter Summary ---
Author Organization [facility] Address [address] [facility] [address] [place] [address] Phone Care Team Providers Care Collection Development Librarian Name Role Phone Lamar Hall MD Primary Care Provider [phone] Encounter Details Date Type Department Care Team (Late Contact Info) Description 02/15/2021 Orders Only [facility] [address] [place] [address] Loc Gonzalez MD [address] [facility] [address] [place] [address] Chronic kidney disease stage 4 [...] Visit [facility] [address] [place] [address] Loc Gonzalez MD [address] [facility] [address] [place] [address] documented as of this encounter Visit Diagnoses Diagnosis Chronic kidney disease stage 4 (HCC) Renal disorder due to type 2 diabetes mellitus <Diabetic nephropathy> (HCC) Anemia in chronic kidney disease documented in this encounter Care Teams Collection Development Librarian Relationship Specialty Start Date End Date Lamar Hall MD [address] [facility] [place], [place] PCP - General 09/04/20 documented as of this encounter
--- OUTSIDE RECORDS SUMMARY | 2025-04-26 17:10 | XMS_ITS | Clinical Summary ---
Author Organization [facility] Address [address] [address] Phone Care Team Providers Care Machinery Cleaner Name Role Phone Lamar Hall MD Primary Care Provider [phone] Allergies Active Allergy Reactions Criticality Noted Date [...] Visit [facility] [address] [place] [address] Loc Gonzalez MD [address] [facility] [address] [place] [phone] Health Maintenance Due Date Last Done Comments [...] Personal/Family Self 1935 [address] [place] [address] [facility] ([id number]) [place] [address] * Guarantor: Pepper Aly Account Type Relation to Patient Date of Phone Billing Address Personal/Family Self 1935 [address] [place] [id number] * Guarantor: Pepper Aly Account Type Relation to Patient Date of Phone Billing Address Personal/Family Self 1935 [address] [place] [address] Care Teams Machinery Cleaner Relationship Specialty Start Date End Date Lamar Hall MD [address] [place] PCP - General 09/04/20
--- NOTE | 2025-04-26 17:16 | A.OFFPC_ITS ---
Vital Signs 04/26/25 17:17 Height 5 ft 1 in Weight 150 lb BMI 28.3 BP 148/68 H Blood Pressure Location Lt brachial Position Sitting Pulse 79 Pulse Source Pulse Oximeter Pulse Oximetry (%) 98 Oxygen Delivery Method Room Air Intake Visit Reasons: 4mth f/u Seed Yeast Operator Required: No Accompanied by: Self / Same As Patient Allergies aspirin Allergy (Intermediate, Verified 04/26/25 17:28) unknown Penicillins Allergy (Verified 04/26/25 17:28) Unknown metformin Adverse Reaction (Intermediate, Verified 04/26/25 17:28) diarrhea Medication List - Last Reconciled 04/26/25 by Lamar Wick MD blood sugar diagnostic (OneTouch Ultra Test strips) Use 1 test strip twice a day blood sugar diagnostic (FreeStyle Lite Strips) As directed blood-glucose meter As directed blood-glucose meter (FreeStyle [place] Lite kit) As directed blood-glucose sensor (FreeStyle Florentino 3 Plus Sensor device) As directed cholecalciferol (vitamin D3) 25 mcg PO DAILY 90 days donepezil 10 mg PO BEDTIME 30 days famotidine 20 mg PO BID 30 days flash glucose scanning reader (FreeStyle Florentino 14 Day [place]) As directed flash glucose sensor (FreeStyle Florentino 14 Day Sensor kit) As directed food supplemt, lactose-reduced (Ensure oral liquid) 1 ea PO .TID with meals 30 days guaifenesin ER (Mucinex) 600 mg PO BID 5 days lancets Use 1 lancet twice a day lancets (FreeStyle Lancets) As directed olmesartan 5 mg PO BID 90 days ondansetron 8 mg PO Q12H PRN 5 days pantoprazole 40 mg PO DAILY 90 days pen needle, diabetic USE DIRECTED semaglutide (Ozempic) 1 mg subcut QWEEK PRN sucralfate 1 g PO BID Tresiba FlexTouch U-100 (insulin degludec) 15 units (0.15 mL) subcut DAILY 30 days NS underpads (Bed Underpads) Use 6 pads once a day vitamin B complex 1 tab PO DAILY 30 days walker with seat [wheelchair As directed] [wipes Use 6 wipes per day] Tobacco use date assessed: 03/17/25 Fall risk assessment: No Falls in past year Last assessed Fall Risk: 04/26/25 Dental Screening Dental Screen Date: 03/17/25 HPI HPI Comments History of Present Illness Details This is an 89-year-old female with diabetes mellitus type 2 on long- term current use of insulin, hypertension, hyperlipidemia, chronic kidney disease stage 4 and Alzheimer's dementia with behavioral disturbances that comes today accompanied by granddaughter which is the lime kiln worker helper for follow-up on her conditions. A1c of 11.9% today and she admits not being completely compliant with insulin. I will still increase insulin from 15 units to 20 units. I do recommend follow-up with endocrinology. Blood pressure well controlled. Last LDL was not on goal and I will start her on statins. Her GFR has decreased to 16 and this is follow by Nephrology. Her dementia is follow by Neurology which has not significantly changed. Denies any chest pain or shortness on breath. She also has anemia of chronic kidney disease that will be monitor. Denies any active bleeding. [facility] Medical History Chronic diarrhea Goiter HLD (hyperlipidemia) HTN (hypertension) T2DM (type 2 diabetes mellitus) Anemia in chronic kidney disease CKD (chronic kidney disease) stage 4, GFR 15-29 ml/min Diabetes mellitus Essential hypertension Primary osteoarthritis of knees, bilateral Surgical History Hx of colonoscopy Hx of eye surgery History of knee replacement procedure of right knee History of cholecystectomy History of total hysterectomy History of appendectomy History of total knee arthroplasty (~12/22/18) Family History Father Dementia Mother No problems noted. Social History Household Members: Children Housing: Apartment Alcohol intake: never Patient Tobacco Use Status: Never used Tobacco Tobacco use type: Cigarette e-Cigarette/Vaping Use: Never Used Second Hand Smoke Exposure: No Advance Directives Date on File: 12/16/22 service: No Current occupational status: disabled Cognitive needs: No Hearing needs: No Vision needs: No Questionnaire PHQ-9 Over the last 2 weeks, how often have you been bothered by any of the following problems? 1. Little interest or pleasure in doing things: more than half the days 2. Feeling down, depressed, or hopeless: not at all 3. Trouble falling or staying asleep, or sleeping too much: more than half the days 4. Feeling tired or having little energy: more than half the days 5. Poor appetite or overeating: not at all 6. Feeling bad about yourself - or that you are a failure or have let yourself or your family down: not at all 7. Trouble concentrating on things, such as reading the newspaper or watching television: nearly every day 8. Moving or speaking so slowly that other people could have noticed. Or the opposite - being so fidgety or restless that you have been moving around a lot more than usual: not at all 9. Thoughts that you would be better off or of hurting yourself in some way: not at all Total score: 9 Depression Screening Interpretation: Positive Depression Screening Follow-up: Existing condition and Follow-up Visit Requested Depression Screening Done: Yes 21659 - PHQ-9 Billing: Yes Source: Developed by Drs. Ramon Coreas, Guy Edgar and colleagues, with an educational valentin from [email or web address]. Thrive Questionnaire Date Thrive assessed: 03/17/25 AUDIT C Alcohol Use Questionnaire (AUDIT-C) 1. How often do you have a drink containing alcohol?: Never 3. How often do you have six or more drinks on one occasion?: Never Total Score: 0 Score Reviewed/Action Taken: No MERRITT-7 AMB Questionnaire MERRITT-7 Date MERRITT - 7 assessed: 03/17/25 Source: Developed by Drs. Ramon Coreas, Guy Edgar and colleagues, with an educational valentin from [email or web address]. Review of Systems Const All systems reviewed & are unremarkable except as noted in HPI and below Card Denies chest pain at rest, Denies chest pain with activity, Denies edema, Denies irregular heart rhythm, Denies claudication, Denies dyspnea, Denies dyspnea on exertion, Denies orthopnea, Denies paroxysmal nocturnal dyspnea and Denies slow heart rate Resp Denies cough, Denies dyspnea and Denies dyspnea on exertion GI Denies abdominal pain, Denies change in bowel habits, Denies excessive flatus, Denies nausea and Denies vomiting Physical exam (Primary Care) Vital Signs: Last Vital Signs Pulse 79 04/26/25 17:17 BP 148/68 H 04/26/25 17:17 Pulse Ox 98 04/26/25 17:17 Oxygen Delivery Method Room Air 04/26/25 17:17 BMI result Body Mass Index 28.3 Tobacco/Smoking Status: Tobacco use Status Tobacco use date assessed 03/17/25 04/26/25 17:16 Patient Tobacco Use Status Never used Tobacco 04/26/25 17:16 Tobacco use type Cigarette 04/26/25 17:23 e-Cigarette/Vaping Use Never Used 04/26/25 17:16 PHQ-9: PHQ-9 Score PHQ-9: Total score 9 04/26/25 17:32 Depression Screening Interpretation: Positive Depression Screening Follow-up: Existing condition and Follow-up Visit Requested Thrive Assessment: Date of Thrive Assessment Date Thrive assessed 03/17/25 04/26/25 17:16 Resp Effort & Inspection: normal respiratory effort Auscultation: clear to auscultation bilaterally Cardio Jugular venous distension: no JVD Rate: regular rate Rhythm: regular rhythm Heart sounds: S1 normal heart sound present and S2 normal heart sound present Extrem General: Yes full ROM Results AMB Hemoglobin A1c AMB Hemoglobin A1c 11.9 % Last Edit by Jaylin De Oliveira CMA on 04/26/25 17:28 Results Reviewed Results Reviewed: Laboratory Last Values Hgb A1c (Clinic) 11.9 % (4.0-6.0) H 04/26/25 17:17 Coding Level of Care Code Est Pt Level 4 (26515) Complex EM visit Add On G2211 Diagnoses Type 2 diabetes mellitus with hyperglycemia, with long-term current use of insulin E11.65; Z79.4 Diabetes mellitus intermodal customer service insulin use: with intermodal customer service use Diabetes mellitus complication status: with hyperglycemia Essential hypertension I10 CKD (chronic kidney disease) stage 4, GFR 15-29 ml/min N18.4 Pure hypertriglyceridemia E78.1 Hyperlipidemia type: pure hypertriglyceridemia Anemia in stage 4 chronic kidney disease N18.4; D63.1 Chronic kidney disease stage: stage 4 (severe) Alzheimer's dementia with behavioral disturbance G30.9; F02.818 Additional Codes PHQ-9 - 45533 - PHQ-9 Billing: Yes ([id number]) Time Spent (min) 23 Assessment & Plan Assessment & Plan (1) T2DM (type 2 diabetes mellitus): Code(s): E11.9 - Type 2 diabetes mellitus without complications Category: Medical Qualifiers: Diabetes mellitus intermodal customer service insulin use: with fci use Diabetes mellitus complication status: with hyperglycemia Qualified Code(s): E11.65 - Type 2 diabetes mellitus with hyperglycemia; Z79.4 - retirement (current) use of insulin (2) Essential hypertension: Code(s): I10 - Essential (primary) hypertension Category: Medical (3) CKD (chronic kidney disease) stage 4, GFR 15-29 ml/min: Code(s): N18.4 - Chronic kidney disease, stage 4 (severe) Category: Medical (4) HLD (hyperlipidemia): Code(s): E78.5 - Hyperlipidemia, unspecified Category: Medical Qualifiers: Hyperlipidemia type: pure hypertriglyceridemia Qualified Code(s): E78.1 - Pure hyperglyceridemia (5) Anemia in chronic kidney disease: Code(s): N18.9 - Chronic kidney disease, unspecified; D63.1 - Anemia in chronic kidney disease Category: Medical Qualifiers: Chronic kidney disease stage: stage 4 (severe) Qualified Code(s): N18.4 - Chronic kidney disease, stage 4 (severe); D63.1 - Anemia in chronic kidney disease (6) Alzheimer's dementia with behavioral disturbance: Code(s): G30.9 - Alzheimer's disease, unspecified; F02.818 - Dementia in other diseases classified elsewhere, unspecified severity, with other behavioral disturbance Category: Medical Plan Continue current medications. Increase insulin. A1c goal is equal or less than 7%. Blood pressure goal is equal or less than 130/80. LDL goal is less than 70. Follow-up with endocrinology for your diabetes. Follow-up with Neurology for dementia. Follow-up with nephrology for chronic kidney disease. Orders: Orders Microalbumin, Random (w Creat) 4 Months R80.9 - Proteinuria, unspecified Vitamin B12 and Folate 4 Months E53.8 - Deficiency of other specified B group vitamins AMB Hemoglobin A1c Today Z13.9 - Encounter for screening, unspecified Complete Blood Count Auto Diff 4 Months D64.9 - Anemia, unspecified Lipid Panel 4 Months E78.5 - Hyperlipidemia, unspecified Vitamin D 25-OH Total 4 Months E55.9 - Vitamin D deficiency, unspecified IRON PROFILE 4 Months D64.9 - Anemia, unspecified Comprehensive [place]. Panel Fast 4 Months E11.65 - Type 2 diabetes mellitus with hyperglycemia, Z79.4 - retirement (current) use of insulin Medications: New rosuvastatin 10 mg PO BEDTIME 90 tabs 1RF 90 days Changed From Tresiba FlexTouch U-100 (insulin degludec) JAE, no substitutions. 15 units (0.15 mL) subcut DAILY 30 days 4.5 mL 6RF NS E11.65 - Type 2 diabetes mellitus with hyperglycemia, Z79.4 - terminal operator (curr ent) use of insulin To Tresiba FlexTouch U-100 (insulin degludec) JEA, no substitutions. 20 units (0.2 mL) subcut DAILY 6 mL 6RF 30 days NS E11.65 - Type 2 diabetes mellitus with hyperglycemia, Z79.4 - terminal operator (current) use of insulin
[2025-04-26 17:17] VITALS: BP 148/68; PULSE 79; O2SAT 98; BMI 28.3
== END 2025-04-26 17:46 | disposition home or self-care (01) ==
LOC: HO.HMCH 17:07
PROVIDERS: PCP Internal Medicine; Visit Provider Internal Medicine
DX: E11.65 Type 2 diabetes mellitus with hyperglycemia (principal); Z79.4 Long term (current) use of insulin; I12.9 Hypertensive chronic kidney disease with stage 1 through stage 4 chronic kidney disease, or unspecified chronic kidney disease; N18.4 Chronic kidney disease, stage 4 (severe); G30.9 Alzheimer's disease, unspecified; F02.818 Dementia in other diseases classified elsewhere, unspecified severity, with other behavioral disturbance; E78.1 Pure hyperglyceridemia; D63.1 Anemia in chronic kidney disease

== ENCOUNTER → 2025-04-26 17:07 | Outpatient (BNVA) | payer OTHER, SELFPAY | PROVIDERS: PCP Internal Medicine; Visit Provider Internal Medicine | DX: E11.65 Type 2 diabetes mellitus with hyperglycemia (principal); E78.5 Hyperlipidemia, unspecified; E11.22 Type 2 diabetes mellitus with diabetic chronic kidney disease; I12.9 Hypertensive chronic kidney disease with stage 1 through stage 4 chronic kidney disease, or unspecified chronic kidney disease; N18.4 Chronic kidney disease, stage 4 (severe); G30.9 Alzheimer's disease, unspecified; F02.80 Dementia in other diseases classified elsewhere, unspecified severity, without behavioral disturbance, psychotic disturbance, mood disturbance, and anxiety; E78.1 Pure hyperglyceridemia; D63.1 Anemia in chronic kidney disease; F02.818 Dementia in other diseases classified elsewhere, unspecified severity, with other behavioral disturbance; R80.9 Proteinuria, unspecified; E53.8 Deficiency of other specified B group vitamins; E55.9 Vitamin D deficiency, unspecified; Z79.4 Long term (current) use of insulin | CPT/HCPCS: 83036; 96127; 99212 ==

== ENCOUNTER 2025-05-24 12:58 | Outpatient (AMB) | payer OTHER, SELFPAY ==
--- NOTE | 2025-05-24 13:01 | MHC.OFFVIS ---
Vital Signs 05/24/25 13:04 Height 5 ft 1 in Weight 155 lb 10.342 oz BMI 29.4 BP 144/68 H Blood Pressure Location Rt brachial Position Sitting Pulse 87 Pulse Source Pulse Oximeter Pulse Oximetry (%) 98 Oxygen Delivery Method Room Air Intake Visit Reasons: T2DM Intake Note: Patient present today to follow up on Type 2 Diabetes Mellitus. Last Diabetic Eye exam: More than 2 years, requesting referral Last Podiatry Visit: Does not see a Employment Legal Assistant, requesting referral. Random Glucose:129 mg/dl Hgb A1C: 11.9% 04/26/2025 Wiper Blender Required: Yes Wiper Blender Language: Truck Driver Rubbish Collector Services: Wiper Blender Offered & Declined Wiper Blender Name: Grandchild will interpret Information Interpreted: non-clinical & clinical Accompanied by: Timchild Allergies aspirin Allergy (Intermediate, Verified 05/24/25 13:06) unknown Penicillins Allergy (Verified 05/24/25 13:06) Unknown metformin Adverse Reaction (Intermediate, Verified 05/24/25 13:06) diarrhea Medication List - Last Reconciled 05/24/25 by Ramon Taylor MD blood sugar diagnostic (OneTouch Ultra Test strips) Use 1 test strip twice a day blood-glucose sensor (FreeStyle Florentino 3 Plus Sensor device) As directed cholecalciferol (vitamin D3) 25 mcg PO DAILY 90 days donepezil 10 mg PO BEDTIME 30 days famotidine 20 mg PO BID 30 days food supplemt, lactose-reduced (Ensure oral liquid) 1 ea PO .TID with meals 30 days guaifenesin ER (Mucinex) 600 mg PO BID 5 days [Hand held shower head As directed] lancets Use 1 lancet twice a day lancets (FreeStyle Lancets) As directed olmesartan 5 mg PO BID 90 days ondansetron 8 mg PO Q12H PRN 5 days pantoprazole 40 mg PO DAILY 90 days pen needle, diabetic USE DIRECTED rosuvastatin 10 mg PO BEDTIME 90 days semaglutide (Ozempic) 1 mg subcut QWEEK PRN sucralfate 1 g PO BID [Toilet safety rails that do not touch floor As directed] Tresiba FlexTouch U-100 (insulin degludec) 20 units (0.2 mL) subcut DAILY 30 days NS underpads (Bed Underpads) Use 6 pads once a day vitamin B complex 1 tab PO DAILY 30 days walker with seat [wheelchair As directed] [wipes Use 6 wipes per day] HPI Comments Details: 89 YO F with PMHx T2DM, CKD Stage 4 and a solitary kidney who is seen in F/U for T2DM. Historical: T2DM: Initially diagnosed with T2DM in 2017. Was initially started on treatment with Metformin, but developed GI distress so this was stopped. Current regimen Ozempic 1.0 mg once a week and Tresiba 20 units qAM. Unfortunately, the patient not bring her log book, glucometer or sensor to follow up appointment Has never had a sugar less than 70. Family history of T2DM in her Sister.. Does not have eyes checked yearly, last eye exam needs to make appt , unsure if retinopathy. Needs to make appt Has neuropathy. Has nephropathy, on olmesartan 5 mg PO BID. UAC 143.3 10/29/2021. Has CKD Stage 4. Follows with Nephrology. Has HLD, on Simvastatin 40 mg PO daily. Denies CAD. Diet: Does not watch her carbs in her diet. Weight: Unchanged. Has not had diabetes education. Thyroid US: 05/15/2022 Right Thyroid Lobe: 5.3 x 3.2 x 1.9 cm, volume 16.7 mL. Parenchyma: The gland echotexture is heterogeneous. Thyroid vascularity is normal. Left Thyroid Lobe: 4.0 x 2.2 x 1.6 cm, volume 7.1 mL. Parenchyma: The gland echotexture is heterogeneous. Thyroid vascularity is normal. Isthmus: 0.5 cm in maximum AP dimension. Estimated total number of nodules greater than or equal to 1 cm: 1. Mexican Food Cook nodules are described as follows: 1. Location: Right lower pole. ?? ? Size: 1.9 x 1.6 x 2.3 cm, volume 3.7 mL. ?? ? Nodule characteristics: ?? ? Composition: Solid (2). ?? ? Echogenicity: Isoechoic (1). ?? ? Shape: Not taller than wide (0). ?? ? Margins: Smooth (0). ?? ? Echogenic Foci: None (0). ?? ? ACR TI-RADS total points: 3 ?? ? ACR TI-RADS category: 3 2. Location: Right upper pole. ?? ? Size: 0.2 x 0.3 x 0.3 cm, volume 0.01 mL. ?? ? Nodule characteristics: ?? ? Composition: Solid (2). ?? ? Echogenicity: Very hypoechoic (3). ?? ? Shape: Not taller than wide (0). ?? ? Margins: Smooth (0). ?? ? Echogenic Foci: None (0). ?? ? ACR TI-RADS total points: 5 ?? ? ACR TI-RADS category: 4 3. Location: Right upper pole. ?? ? Size: 0.5 x 0.5 x 0.6 cm, volume 0.03 mL. ?? ? Nodule characteristics: ?? ? Composition: Solid (2). ?? ? Echogenicity: Very hypoechoic (3). ?? ? Shape: Not taller than wide (0). ?? ? Margins: Smooth (0). ?? ? Echogenic Foci: None (0). ?? ? ACR TI-RADS total points: 5 ?? ? ACR TI-RADS category: 4 NODES: There are bilateral cervical lymph nodes. There is a left upper cervical 2.6 x 0.5 x 0.6 cm lymph node. This is elongated but normal in transverse dimension and demonstrates normal ultrasound morphology and flow. There is a right lower cervical lymph node. This is normal in size measuring 1.1 x 0.2 x 0.3 cm and demonstrates absent or slitlike hilum. Labs: Laboratory Tests 02/12/22 10:47 TSH 1.50 Free T4 1.04 PFSH Medical History Chronic diarrhea Goiter HLD (hyperlipidemia) HTN (hypertension) T2DM (type 2 diabetes mellitus) Anemia in chronic kidney disease CKD (chronic kidney disease) stage 4, GFR 15-29 ml/min Diabetes mellitus Essential hypertension Primary osteoarthritis of knees, bilateral Surgical History Hx of colonoscopy Hx of eye surgery History of knee replacement procedure of right knee History of cholecystectomy History of total hysterectomy History of appendectomy History of total knee arthroplasty (~12/22/18) Family History Father Dementia Mother No problems noted. Social History Household Members: Children Housing: Apartment Alcohol intake: never Patient Tobacco Use Status: Never used Tobacco Tobacco use type: Cigarette e-Cigarette/Vaping Use: Never Used Second Hand Smoke Exposure: No Advance Directives Date on File: 12/16/22 service: No Current occupational status: disabled Cognitive needs: No Hearing needs: No Vision needs: No Physical Exam Absence of Cushingoid features. Absence of acromegalic features. Neck exam reveals nl size thyroid about 15 gms. No thyroid nodules palpable. No carotid bruits present. Lungs CTA. Heart S1 S2, Reg R/R. No M/R/ G. Skin exam reveals absence of vitiligo or acanthosis nigricans. Abdominal exam reveals Soft NT/ND with NA BS. No organomegaly present. Neck Other: . Extrem Other: Visual exam of foot performed. No ulcerations or open lesions. No onchomycosis, no callouses.Pulses 2 + distally Sensation intact to monofilament exam. Vibratory sensation sensed is intact with 128 Hz tuning fork Assessment & Plan Assessment & Plan (1) T2DM (type 2 diabetes mellitus): Code(s): E11.9 - Type 2 diabetes mellitus without complications Category: Medical Qualifiers: Diabetes mellitus superintendent terminal insulin use: with superintendent terminal use Diabetes mellitus complication status: with hyperglycemia Qualified Code(s): E11.65 - Type 2 diabetes mellitus with hyperglycemia; Z79.4 - predatory animal exterminator (current) use of insulin Plan: This is a 89-year-old female with history of type 2 diabetes being treated with Ozempic and basal insulin with poor glycemic control and known microvascular complications namely CKD. The plan is to reinitiate the sensor. Could not make any changes to the regimen because of lack of data.. We will have patient follow up with primary care diabetes team about 4-6 weeks Medications: New blood-glucose,client care manager,cont (FreeStyle Florentino 3 [place]) As directed 1 ea 0RF Refilled blood sugar diagnostic (OneTouch Ultra Test strips) Use 1 test strip twice a day 50 ea 11RF E11.9 - Type 2 diabetes mellitus without complications blood-glucose sensor (FreeStyle Florentino 3 Plus Sensor device) As directed 1 ea 11RF E11.65 - Type 2 diabetes mellitus with hyperglycemia, Z79.4 - shelter (current) use of insulin Coding Level of Care Code Est Pt Level 4 (29774) Diagnoses Type 2 diabetes mellitus with hyperglycemia, with long-term current use of insulin E11.65; Z79.4 Diabetes mellitus superintendent terminal insulin use: with superintendent terminal use Diabetes mellitus complication status: with hyperglycemia
[2025-05-24 13:04] VITALS: BP 144/68; PULSE 87; O2SAT 98; BMI 29.4
[2025-05-24 13:31] LABS: Glucose, Whole Blood 129 mg/dL (60-115)
--- OUTSIDE RECORDS SUMMARY | 2025-05-24 14:07 | XMS_ITS | Encounter Summary ---
Author Organization [facility] Address [address] [facility] [address] [place] [address] Phone Care Team Providers Care Folder Seamer Name Role Phone Lamar Hall MD Primary Care Provider [phone] Encounter Details Date Type Department Care Team (Late Contact Info) Description 02/15/2021 Orders Only [facility] [address] [place] [address] Loc Gonzalez MD [address] [address] Chronic kidney disease stage 4 (HCC); [...] Care Team (Late st Contact Info) Description 08/15/2025 4:00 PM EST Office Visit [facility] [address] [place] [address] Loc Gonzalez MD [address] [facility] [address] [place] [address] documented as of this encounter Visit Diagnoses Diagnosis Chronic kidney disease stage 4 (HCC) Renal disorder due to type 2 diabetes mellitus <Unspecified DM Medication; Diabetic nephropathy> (HCC) Anemia in chronic kidney disease documented in this encounter Care Teams Folder Seamer Relationship Specialty Start Date End Date Lamar Hall MD [address] [place], [place] PCP - General 09/04/20 documented as of this encounter
--- OUTSIDE RECORDS SUMMARY | 2025-05-24 14:07 | XMS_ITS | Clinical Summary ---
Author Organization [facility] Address [address] [address] Phone Care Team Providers Care Church Warden Name Role Phone Lamar Hall MD Primary Care Provider [phone] Allergies Active Allergy Reactions Criticality Noted Date [...] Visit [facility] [address] [place] [phone] Loc Gonzalez MD [address] [facility] [address] [place] [phone] Health Maintenance Due Date Last Done Comments [...] 1935 [address] [place] [address] [facility] ([id number]) [place] [address] * Guarantor: Pepper Aly Account Type Relation to Patient Date of Phone Billing Address Personal/Family Self 1935 [address] [place] [id number] * Guarantor: Pepper Aly Account Type Relation to Patient Date of Phone Billing Address Personal/Family Self 1935 [address] [place] [address] Care Teams Church Warden Relationship Specialty Start Date End Date Lamar Hall MD [address] [place] [facility] - General 09/04/20
== END 2025-05-24 13:27 | disposition home or self-care (01) ==
LOC: HO.ENCR 12:58
PROVIDERS: PCP Internal Medicine; Visit Provider Internal Medicine Endocrinology, Diabetes & Metabolism
DX: E11.65 Type 2 diabetes mellitus with hyperglycemia (principal); Z79.4 Long term (current) use of insulin
CPT/HCPCS: 99214

== ENCOUNTER → 2025-05-24 12:58 | Outpatient (BNVA) | payer OTHER, SELFPAY | PROVIDERS: PCP Internal Medicine; Visit Provider Internal Medicine Endocrinology, Diabetes & Metabolism | DX: E11.65 Type 2 diabetes mellitus with hyperglycemia (principal); Z79.4 Long term (current) use of insulin | CPT/HCPCS: 82947; 99212 ==

== ENCOUNTER 2025-05-26 14:55 | Outpatient (AMB) | payer OTHER, SELFPAY ==
[2025-05-26 14:59] VITALS: BP 124/70; PULSE 84; O2SAT 96; BMI 29.5
--- NOTE | 2025-05-26 14:59 | MHC.OFFVIS ---
Vital Signs 05/26/25 14:59 Height 5 ft 1 in Weight 156 lb BMI 29.5 BP 124/70 Blood Pressure Location Rt brachial Position Sitting Pulse 84 Pulse Source Pulse Oximeter Pulse Oximetry (%) 96 Oxygen Delivery Method Room Air Intake Visit Reasons: f/u appt after PEt Scan Intake Note: Patient presents for 3 month follow up. patient says she's having mild memory loss. Research Support Specialist Required: No Accompanied by: Daughter Allergies aspirin Allergy (Intermediate, Verified 05/26/25 15:06) unknown Penicillins Allergy (Verified 05/26/25 15:06) Unknown metformin Adverse Reaction (Intermediate, Verified 05/26/25 15:06) diarrhea Medication List - Last Reconciled 05/26/25 by KIRAN Walsh blood sugar diagnostic (Motivano Ultra Test strips) Use 1 test strip twice a day blood-glucose sensor ([employer] Florentino 3 Plus Sensor device) As directed blood-glucose,health care marketing manager,cont (FreeStyle Florentino 3 [place]) As directed cholecalciferol (vitamin D3) 25 mcg PO DAILY 90 days donepezil 10 mg PO BEDTIME 30 days famotidine 20 mg PO BID 30 days food supplemt, lactose-reduced (Ensure oral liquid) 1 ea PO .TID with meals 30 days guaifenesin ER (Mucinex) 600 mg PO BID 5 days [Hand held shower head As directed] lancets Use 1 lancet twice a day lancets (FreeStyle Lancets) As directed olmesartan 5 mg PO BID 90 days ondansetron 8 mg PO Q12H PRN 5 days pantoprazole 40 mg PO DAILY 90 days pen needle, diabetic USE DIRECTED rosuvastatin 10 mg PO BEDTIME 90 days semaglutide (Ozempic) 1 mg subcut QWEEK PRN sucralfate 1 g PO BID [Toilet safety rails that do not touch floor As directed] Tresiba FlexTouch U-100 (insulin degludec) 20 units (0.2 mL) subcut DAILY 30 days NS underpads (Bed Underpads) Use 6 pads once a day vitamin B complex 1 tab PO DAILY 30 days walker with seat [wheelchair As directed] [wipes Use 6 wipes per day] HPI Comments Details: 89-yr-old female presents for visit issue. The patient accompanied by her granddaughter and great-granddaughter. History is obtained primarily from her granddaughter. Her granddaughter reports that the patient recently had an endocrinology follow-up for an elevated hemoglobin A1C of 11.9%, and a glucose sensor has been ordered. She also recently had a GI evaluation for intermittent reports of abdominal discomfort; further GI workup is planned. She has an upcoming appointment with her shuttle fixer, Dr. Gonzalez. 03/24/2025, PET Neuraceq brain imaging: Negative Neuraceq scan, indicating sparse to no amyloid neuritic plaques. However, there is diffuse cerebral cortical atrophy. The patient herself states that she is overall fine and is not concerned about her memory. The patient's granddaughter reports: She continues to have cognitive and memory difficulties. She is prone to forgetting things, misplacing things, and repeating herself. She is prone to forgetting to shower and needs cuing and supervision. She requires assistance from her family to manage her medicines, medications, and cooking. She continues to live with her daughter, but her granddaughter often needs to come over to encourage her to shower and do other necessary ADLs. She does not verbalize hallucinations. She may refuse or push off doing things that the family suggests, such as taking a shower, going to the bathroom, or wearing incontinence briefs. She may forget to use the bathroom and thus become incontinent of bladder or bowel. Her gait can be unsteady, especially when walking longer distances. On the stairs, she report feeling some numbness and tingling when walking up stairs. She does attend a day program, but not every day, as she may refuse to go. She stopped memantine ER 7 mg daily, as this reportedly caused GI upset She is compliant with donepezil 10 mg daily at bedtime. [facility] Medical History (Updated 05/26/25 @ 16:34 by KIRAN Walsh) Alzheimer's dementia with behavioral disturbance Chronic diarrhea Goiter HLD (hyperlipidemia) HTN (hypertension) T2DM (type 2 diabetes mellitus) Anemia in chronic kidney disease CKD (chronic kidney disease) stage 4, GFR 15-29 ml/min Diabetes mellitus Essential hypertension Primary osteoarthritis of knees, bilateral Surgical History Hx of colonoscopy Hx of eye surgery History of knee replacement procedure of right knee History of cholecystectomy History of total hysterectomy History of appendectomy History of total knee arthroplasty (~12/22/18) Family History Father Dementia Mother No problems noted. Social History Household Members: Children Housing: Apartment Alcohol intake: never Patient Tobacco Use Status: Never used Tobacco Tobacco use type: Cigarette e-Cigarette/Vaping Use: Never Used Second Hand Smoke Exposure: No Advance Directives Date on File: 12/16/22 service: No Current occupational status: disabled Cognitive needs: No Hearing needs: No Vision needs: No Physical Exam Vital Signs: Last Vital Signs Pulse 84 05/26/25 14:59 BP 124/70 05/26/25 14:59 Pulse Ox 96 05/26/25 14:59 Oxygen Delivery Method Room Air 05/26/25 14:59 BMI result Body Mass Index 29.5 Const General: cooperative and no acute distress Resp Effort & Inspection: normal respiratory effort and able to speak in complete sentences Neuro Other: Alert, oriented to person. Responds appropriately to direct questions with simple responses; however, increased memory lapses are noted. Pleasant affect. Steady gait today. General: CN's II-XI intact bilaterally Motor exam (neuro): 5/5 motor strength present throughout Psych Appearance: grossly normal Affect: normal affect Attitude: cooperative Assessment & Plan Assessment & Plan (1) Dementia, vascular, mixed: Comment: February 2025, amyloid PET scan negative Code(s): F01.50 - Vascular dementia, unspecified severity, without behavioral disturbance, psychotic disturbance, mood disturbance, and anxiety Category: Medical Qualifiers: Dementia severity: moderate Dementia behavioral or psychological symptom: with other behavioral disturbance Qualified Code(s): F01.B18 - Vascular dementia, moderate, with other behavioral disturbance (2) Cognitive impairment: Comment: Modified/limited MMSE- Time: Correct: April, Summer/Fall Incorrect: Sam, [place], Place: Correct: [place], [place] Incorrect: [place] Johan TOM in reverse: 08/29 after 4 attempts ODOMU, ODOMU, ODUNM, EDWINA Item identification- 2 3 word recall- 3/3 immediately 0/3 on 3 minute recall- did not recall what 3 words we spoke of- stated Tom, watch, pen Sentence- full sentence [place] drawing- poor Clock- Poor- Shakir face of clock and placed numbers w/ just slight difficulty- spacing just a bit off. However, pt draw hands of clock, as ? a separate hand-like shape, and 10 of 2, as 10-8 = 2 Code(s): R41.89 - Other symptoms and signs involving cognitive functions and awareness Category: Medical Plan Reviewed amyloid PET scan results, which was negative. This makes a diagnosis of Alzheimer's dementia very unlikely. Patient would not be a candidate for an amyloid targeted disease modifying therapy. Patient and family are encouraged to continue to try to optimize cardiovascular risk factors, such as continuing to work with endocrinology to optimize diabetes control. Follow-up with endocrinology, GI, and Nephrology as scheduled. Continue donepezil 10 mg daily Patient requires 24/7 supervision and and home health aide care for ADLs, incontinence care, showering, and gait supervision. Use transfer wheelchair for longer distances. Continue day program as tolerated. Future considerations: Revisiting memantine trial Pt to follow-up in 6 months or sooner prn. 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
--- OUTSIDE RECORDS SUMMARY | 2025-05-26 16:22 | XMS_ITS | Encounter Summary ---
Author Organization [facility] Address [address] [facility] [address] [place] [address] Phone Care Team Providers Care Brick Sorter Name Role Phone Lamar Hall MD Primary Care Provider [phone] Encounter Details Date Type Department Care Team (Late Contact Info) Description 02/15/2021 Orders Only [facility] [address] [place] [address] Loc Gonzalez MD [address] [address] Chronic kidney disease stage 4 [...] Visit [facility] [address] [place] [address] Loc Gonzalez MD [address] [facility] [address] [place] [address] documented as of this encounter Visit Diagnoses Diagnosis Chronic kidney disease stage 4 (HCC) Renal disorder due to type 2 diabetes mellitus <Unspecified DM Medication; Diabetic nephropathy> (HCC) Anemia in chronic kidney disease documented in this encounter Care Teams Brick Sorter Relationship Specialty Start Date End Date Lamar Hall MD [address] [facility] [address] [address] [place], [place] PCP - General 09/04/20 documented as of this encounter
--- OUTSIDE RECORDS SUMMARY | 2025-05-26 16:22 | XMS_ITS | Clinical Summary ---
Author Organization [facility] Address [address] [address] Phone Care Team Providers Care Criminal Attorney Name Role Phone Lamar Hall MD Primary Care Provider [phone] Allergies Active Allergy Reactions Criticality Noted Date [...] Visit [facility] [address] [place] [phone] Loc Gonzalez MD [address] [facility] [address] [place] [phone] Health Maintenance Due Date Last Done Comments [...] 1935 [address] [place] [address] [facility] ([id number]) [place] [phone] * Guarantor: Pepper Aly Account Type Relation to Patient Date of Phone Billing Address Personal/Family Self 1935 [address] [place] [id number] * Guarantor: Pepper Aly Account Type Relation to Patient Date of Phone Billing Address Personal/Family Self 1935 [address] [place] [address] Care Teams Criminal Attorney Relationship Specialty Start Date End Date Lamar Hall MD [address] [place] [facility] - General 09/04/20
== END 2025-05-26 15:55 | disposition home or self-care (01) ==
LOC: HO.HSMS 14:56
PROVIDERS: PCP Internal Medicine; Visit Provider Nurse Practitioner Family
DX: F01.B18 Vascular dementia, moderate, with other behavioral disturbance (principal); R41.89 Other symptoms and signs involving cognitive functions and awareness
CPT/HCPCS: 99214

== ENCOUNTER → 2025-05-26 14:55 | Outpatient (BNVA) | payer OTHER, SELFPAY | PROVIDERS: PCP Internal Medicine; Visit Provider Nurse Practitioner Family | DX: F01.B18 Vascular dementia, moderate, with other behavioral disturbance (principal); R41.89 Other symptoms and signs involving cognitive functions and awareness | CPT/HCPCS: 99212 ==